=== PATIENT | female | born 1925 | race Caucasian/White ===

== ENCOUNTER 2017-03-05 20:13 | Inpatient (IN) ==
[2017-03-05] MEDS ORDERED: Naloxone 0.4 MG/ML INJ IVP PRN (23:00)
--- NOTE | 2017-03-05 23:00 | Internal Med History&Physical ---
Date of Encounter: 03/05/17 Time of Encounter: 22:59 Assessment and Plan (1) Atrial fibrillation with rapid ventricular response Current visit: Yes Status: Acute Possibly due to sepsis. Treated with IV fluid bolus, IV diltiazem bolus and diltiazem infusion. Titrate diltiazem infusion. Will check TSH, echocardiogram. Consider cardiology consult (2) Sepsis Current visit: Yes Status: Acute Likely due to contained intra-abdominal perforation (suspected) versus UTI. Pt is started on zosyn. Lactate was elevated in the ER, but is improving. Qualifiers: Sepsis type: sepsis due to unspecified organism Qualified Code(s): A41.9 - Sepsis, unspecified organism (3) Perforation bowel Current visit: Yes Status: Suspected Suspected contained perforation based on the imaging. Pt is on zosyn. ER provider at [facility] discussed with Dr Acevedo. Surgical consultation (4) UTI (urinary tract infection) Current visit: Yes Status: Acute Pt is on zosyn. Urine culture pending Qualifiers: Urinary tract infection type: site unspecified Hematuria presence: without hematuria Qualified Code(s): N39.0 - Urinary tract infection, site not specified (5) Leucocytosis Current visit: Yes Status: Acute L Likely due to sepsis Qualifiers: Leukocytosis type: unspecified Qualified Code(s): D72.829 - Elevated white blood cell count, unspecified (6) Lactic acid acidosis Current visit: Yes Status: Acute Likely due to sepsis. Pt is being treated for sepsis and lactic acidosis is improving (7) Hyponatremia Current visit: Yes Status: Acute Likely due to volume depletion. Pt on IV normal saline infusion. Monitor sodium levels (8) Chronic back pain Current visit: Yes Status: Chronic continue her home meds Qualifiers: Back pain location: low back pain Back pain laterality: unspecified Sciatica presence: unspecified whether sciatica present Qualified Code(s): M54.5 - Low back pain; G89.29 - Other chronic pain (9) DVT prophylaxis Current visit: Yes Status: Acute subQ heparin Internal Medicine - H&P: HPI Chief complaint: Shortness of breath Admitted From: Emergency Dept Plans for Post Hospital Care: Home History of present illness: Ms. Beckwith is a 89 year old female Transferred from ER at [facility], for altered mental status and sepsis. She has h/o chronic back pain and gets shots in the back and she is overdue, which is causing pain in the back. Pt reports that she has h/o shortness of breath for about a month, but today the person who came to [facility] [place] noticed her to be short of breath and insisted on getting her to the hospital. Per the EMS note - upon arrival patient was found lying in the bed complaining of back pain in the right flank area and reported trouble urinating. She was reportedly confused at home. She was evaluated in the ER and was noted to have WBC of 20.6 and suspected contained perforation in the abdomen / pelvis. She was given zosyn and ER provider discussed with Dr Acevedo, who did not recommend any urgent surgery. She is transferred to the hospitalist service, for further management. At my evaluation, she denied chest pain, palpitations, significant shortness of breath, cough, expectation, fever, chills. She reports difficulty urination and suprapubic pain. She reports nausea. No change in bowel habits. Reports that her chronic back pain is getting worse. Past Med Surg Social Fam HX - Past Medical History Medical history: hypertension Psychiatric history: no psych history - Social History Smoking Status: Never smoker Alcohol use: none Drug use: none - Additional Family History Additional family history: Family Hx reviewed and is non-contributory to current admission Internal Medicine - H&P: Meds Aspirin [Ecotrin] 325 mg PO DAILY 03/06/17 [History] Cholecalciferol (Vitamin D3) [Vitamin D] 1,000 unit PO DAILY 03/06/17 [History] Ferrous Sulfate [Iron] 325 mg PO DAILY 03/06/17 [History] Lansoprazole [Prevacid] 30 mg PO DAILY 03/06/17 [History] Metoprolol Succinate 150 mg PO DAILY 03/06/17 [History] Multivitamin [One Daily Essential] 1 tab PO DAILY 03/06/17 [History] Naproxen Sodium [Aleve] 440 mg PO BID PRN 03/06/17 [History] Olmesartan/Hydrochlorothiazide [Benicar Hct 40-25 mg Tablet] 1 tab PO DAILY 11/21 [History] Wolcott-3/Dha/Epa/Fish Oil [Fish Oil 1,000 mg Softgel] 1,000 mg PO DAILY 03/06/17 [History] PredniSONE [Liv] 10 mg PO BID 03/06/17 [History] Allergies No Known Allergies Allergy (Verified 03/05/17 17:16) All Systems PM: A 10-system review of systems was performed and is negative for pertinent findings except as documented above in the HPI. - Constitutional Vitals: Temp Pulse Resp BP Pulse Ox 98.1 F 164 18 113/77 97 03/05/17 21:38 03/05/17 21:38 03/05/17 21:38 03/05/17 21:38 03/05/17 21:38 Exam: General: Not in acute distress at the time of my evaluation HEENT: Oral mucosa is moist. No conjunctival palor or scleral icterus Neck: No obvious neck swellings Lungs: Clear to auscultation Cardiac: Irregular rhythm Abdomen: Soft; Suprapubic tenderness present. Bowel sounds present Genitourinary: No blas catheter Neurological: Alert and oriented. No gross localizing deficits Psych: Not aggressive or agitated Extremities: no significant leg edema Skin: No generalized rash Internal Med - H&P Results - Labs CBC & Chem 7: 03/06/17 03:40 03/06/17 03:40 - EKG Data -: EKG Interpreted by Myself - EKG Data Prior EKG available for review: yes EKG comments: EKG done here showed atrial fibrillation with rapid response. Heart rate 161. Compared with EKG from earlier today, done at the ER - which showed sinus tachycardia with heart rate of 130. 03/06/17 08:41 - Impressions Chest x-ray reported bronchiectasis and scarring in both lungs with chronic interstitial changes. No acute focal consolidation to suggest pneumonia. 4 mm right upper lobe pulmonary nodule since 2007. CT head reported no acute intracranial abnormality. CT scan of abdomen and pelvis reported large collection of stool that extends from sigmoid colon extending into the space between the bladder and the uterus. Findings likely represent a contained perforation. No significant free air or significant fluid collection is noted. Mild inflammatory stranding noted within the pelvis.
[2017-03-06] MEDS ORDERED: Magnesium Sulfate 2 GM in D5% in Water 100 ML IVPB ONE (00:40)
[2017-03-06] MEDS: *HR* Heparin 5,000 UNIT/ML VIAL SQ SCH ×3 (01:23→18:21)
[2017-03-06] MEDS: 0.9 % Sodium Chloride 1,000 ML IVC SCH ×2 (01:23→14:39)
[2017-03-06] MEDS: Piperacillin/Tazobactam 3.375 GM in D5% in Water (Mini-Bag+) 100 ML IVPB SCH ×3 (01:24→18:20)
[2017-03-06 04:26] LABS: Hematocrit 31.4 % (35.3-44.9); Hemoglobin 10.3 g/dL (11.5-15.4); Mean Corpuscular HGB Conc 32.8 g/dL (31.6-35.5); Mean Corpuscular Hemoglobin 24.7 pg (28.0-33.3); Mean Corpuscular Volume 75.3 fL (83.0-100.0); Mean Platelet Volume 9.1 fL (9.4-12.4); Platelet Count 329 K/mcL (140-400); Red Blood Count 4.17 M/mcL (3.82-4.97); Red Cell Distribution Width 17.5 % (11.5-14.5)
[2017-03-06 04:37] LABS: BUN/Creatinine Ratio 40 (6-26); Blood Urea Nitrogen 36 mg/dL (7-20); Calcium 7.8 mg/dL (8.6-10.8); Carbon Dioxide 18 mEq/L (19-29); Chloride 101 mEq/L (98-109); Glucose 101 mg/dL (70-99); Osmolality,Calculated 276 (280-300); Potassium 4.1 mEq/L (3.5-4.5); Sodium 129 mEq/L (136-145); eGFR For African Americans > 60 (> 60); eGFR For Non-African Americans 58 (> 60)
[2017-03-06 04:59] LABS: Thyroid Stimulating Hormone 0.983 mcIU/mL (0.350-4.840)
[2017-03-06 05:08] LABS: Eosinophils # 0.4 K/mcL (0.0-0.6); Lymphocytes # 1.7 K/mcL (0.6-4.6); Monocytes # 0.4 K/mcL (0.0-1.3); Neutrophils # 18.3 K/mcL (1.6-8.9); Platelet Estimate Normal (Normal); Toxic Granulation Present (Not Present)
[2017-03-06] MEDS ORDERED: 0.9 % Sodium Chloride 500 ML IVC ONE ×2 (07:00→07:13)
[2017-03-06] MEDS ORDERED: *HR* Digoxin 0.5 MG/2 ML AMPUL IVP ONE (08:39)
--- NOTE | 2017-03-06 09:04 | Internal Med Progress Note ---
<Jabier Walker - Last Filed: 03/06/17 13:30> Date of Encounter: 03/06/17 Time of Encounter: 09:57 - Assessment and plan (1) Atrial fibrillation with rapid ventricular response Current Visit: Yes Status: Acute Assessment and plan: 89-year-old female history of hypertension, arthritis presents with chief complaint of shortness of breath, weakness of one month. Patient is transferred from [place]. Patient was found by neighbor to be confused. When EMS arrived patient complained of back pain and right flank pain and was confused. She also complained of dysuria onset 2 days. Patient was taken to [facility] ER was found to have a white blood cell count of 20.6. CT abdomen pelvis showed possible contained perforation and sigmoid colon between the space of bladder and uterus without free air, fluid collection. Head CT is negative, chest x-ray showed bronchiectasis and scarring in both lungs with chronic interstitial changes. Now alert and oriented x3 At [place] EKG was sinus rhythm found to be in afib rvr after arrival Given cardizem 5mg x2 Iv started on cardizem gtt 5mg/hr>>Became hypotensive>> given 1L NS bolus and started on NS 100cc/hr Continued to be in afib with rate 150-160 this morning with BP in systolic upper 90s to 100 given digoxin .125mg and HR decreased to 110, BP increased to 120/80. Repeat EKG pending 2nd to dehydration, sepsis denies hx of cardiac disease No hx of atrial fibrillation. echocardiogram pending. tsh WNL (2) Sepsis Current Visit: Yes Status: Acute Assessment and plan: Tachycardic, leukocytosis, CT abdomen/pelvis shows possible contained perforation Urinalysis shows urine bacteria, urine culture pending chapin 2nd to suspected intra-abdominal bowel perforation/possible UTI -continue zosyn Qualifiers: Sepsis type: sepsis due to unspecified organism Qualified Code(s): A41.9 - Sepsis, unspecified organism (3) Perforation bowel Current Visit: Yes Status: Suspected Assessment and plan: Ct/abdomen pelvis shows containe bowel perforation in the sigmoid colon which is between bladder and uterus, without free air of fluid collection -tenderness to palpation in the RLQ and pain with percussion of LLQ, soft belly , no peritoneal signs, absent rigidity -denies pervious abdominal surgeries, denies colonoscopy in past -General surgery on board awaiting recommendations -continue zosyn (4) Essential (primary) hypertension Current Visit: Yes Status: Chronic Assessment and plan: currently patien's BP is <120/80. Will hold home medications. continue to monitor BP. (5) UTI (urinary tract infection) Current Visit: Yes Status: Suspected Assessment and plan: Urinalysis shows urine bacteria. Urine culture pending continue zosyn Qualifiers: Urinary tract infection type: site unspecified Hematuria presence: without hematuria Qualified Code(s): N39.0 - Urinary tract infection, site not specified (6) Hyponatremia Current Visit: Yes Status: Acute Assessment and plan: Sodium of 129. Caculated osmolality 276. 2nd to volume depletion. will continue to monitor with BMP (7) Chronic back pain Current Visit: Yes Status: Chronic Assessment and plan: hx of degenerative disk disease, osteoarthritis states she gets epidural shots outpatient on prednisone for osteoarthritis, and neproxen. will start prednisone 10mg daily. Qualifiers: Back pain location: low back pain Back pain laterality: unspecified Sciatica presence: unspecified whether sciatica present Qualified Code(s): M54.5 - Low back pain; G89.29 - Other chronic pain (8) DVT prophylaxis Current Visit: Yes Status: Acute Assessment and plan: heparin SQ - Subjective Interval history: After being transferred from [facility] ER for sepsis, this morning patient was found to be in A. fib RVR. Patient denies having history of A. fib. Patient's rate was in the 150-160s. Patient was given 2 doses of Cardizem 5 mg IV and started on a Cardizem drip however her blood pressure decreased to 87/53. Patient was given 1 L bolus of fluids and started on 0.9% NS fluids 100 mL an hour. This morning patient continued to be in A. fib RVR. She was given digoxin 0.125 and her heart rate decreased to 110. She denies chest pain, abdominal pain, nausea, vomiting, diarrhea, abdominal pain, leg pain. Patient states her shortness of breath has improved since admission. - Constitutional Vitals: Temp Pulse Resp BP Pulse Ox 98 F 141 18 106/71 95 03/06/17 06:52 03/06/17 06:52 03/06/17 06:52 03/06/17 06:52 03/06/17 07:56 General appearance: Present: A&O X 3, pleasant - Head Head exam: Present: atraumatic, normocephalic - Eye Eye exam: Present: PERRL, conjuntiva pink, sclera anicteric - Neck Neck exam general surgery: Present: supple, trachea midline. Absent: lymphadenopathy - Cardiovascular Cardiovascular exam: Present: irregular rhythm (A. fib), +S1, +S2, tachycardia. Absent: diastolic murmur, gallop, JVD, rubs, systolic murmur - GI/Abdominal GI/Abdominal exam: Present: soft. Absent: distended Additional comments: Tender to palpation in the right lower quadrant and pain with percussion of the left lower quadrant. - Extremities Exam Extremities exam: Present: warm, radial pulses palpable and symetrical. Absent : calf tenderness, cyanotic, pedal edema - Neurological Exam Neurological exam: Present: CN II-XII intact, oriented X3, no focal deficits. Absent: pronater drift, facial droop, speech deficit - Skin Skin exam: Present: dry, intact Internal Medicine: Result - Labs CBC & Chem 7: 03/06/17 03:40 03/06/17 03:40 Labs: Short CBC 03/06/17 Range/Units 03:40 WBC 20.8 H (4.3-11.1) K/mcL Hgb 10.3 L (11.5-15.4) g/dL Hct 31.4 L (35.3-44.9) % Plt Count 329 (140-400) K/mcL Neutrophils # 18.3 H (1.6-8.9) K/mcL BMP 03/06/17 03:40 Sodium 129 L Potassium 4.1 Chloride 101 Carbon Dioxide 18 L BUN 36 H Creatinine 0.91 Glucose 101 H Calcium 7.8 L Cardiac Enzymes 03/06/17 03/06/17 Range/Units 00:01 03:40 Troponin I 0.01 0.02 (0-0.03) ng/mL Consult Discharge Plan - Plan Referrals: Aaron Levy, ELASTIC YARN TWISTER HELPER [Primary Care Provider] - <Hung Penaloza - Last Filed: 03/06/17 17:29> Date of Encounter: 03/06/17 - Constitutional Vitals: Temp Pulse Resp BP Pulse Ox 97.8 F 92 18 110/64 95 03/06/17 15:37 03/06/17 15:37 03/06/17 15:37 03/06/17 15:37 03/06/17 15:37 Internal Medicine: Result - Labs CBC & Chem 7: 03/06/17 03:40 03/06/17 03:40 Labs: Short CBC 03/06/17 Range/Units 03:40 WBC 20.8 H (4.3-11.1) K/mcL Hgb 10.3 L (11.5-15.4) g/dL Hct 31.4 L (35.3-44.9) % Plt Count 329 (140-400) K/mcL Neutrophils # 18.3 H (1.6-8.9) K/mcL BMP 03/06/17 03:40 Sodium 129 L Potassium 4.1 Chloride 101 Carbon Dioxide 18 L BUN 36 H Creatinine 0.91 Glucose 101 H Calcium 7.8 L Cardiac Enzymes 03/06/17 03/06/17 Range/Units 00:01 03:40 Troponin I 0.01 0.02 (0-0.03) ng/mL - Attending Attestation I examined this patient and my medical decision-making was reviewed with the SYSTEMS PLANNER/PA/Advanced Practice Nurse/Resident Physician. I agree with the documented findings, disposition and treatment plan as described except to the extent set forth below. await surgical input
[2017-03-06] MEDS: predniSONE 10 MG TABLET PO SCH (14:38)
[2017-03-07] MEDS: Piperacillin/Tazobactam 3.375 GM in D5% in Water (Mini-Bag+) 100 ML IVPB SCH ×3 (01:25→16:59)
[2017-03-07] MEDS: 0.9 % Sodium Chloride 1,000 ML IVC SCH (01:25)
[2017-03-07] MEDS: *HR* Heparin 5,000 UNIT/ML VIAL SQ SCH ×3 (01:26→16:59)
[2017-03-07 04:57] LABS: Hematocrit 27.5 % (35.3-44.9); Hemoglobin 9.1 g/dL (11.5-15.4); Mean Corpuscular HGB Conc 33.1 g/dL (31.6-35.5); Mean Corpuscular Hemoglobin 24.3 pg (28.0-33.3); Mean Corpuscular Volume 73.5 fL (83.0-100.0); Mean Platelet Volume 9.5 fL (9.4-12.4); Platelet Count 309 K/mcL (140-400); Red Blood Count 3.74 M/mcL (3.82-4.97); Red Cell Distribution Width 17.4 % (11.5-14.5)
[2017-03-07 05:09] LABS: BUN/Creatinine Ratio 33 (6-26); Blood Urea Nitrogen 26 mg/dL (7-20); Calcium 7.6 mg/dL (8.6-10.8); Carbon Dioxide 19 mEq/L (19-29); Chloride 106 mEq/L (98-109); Glucose 113 mg/dL (70-99); Osmolality,Calculated 278 (280-300); Potassium 3.7 mEq/L (3.5-4.5); Sodium 131 mEq/L (136-145); eGFR For African Americans > 60 (> 60); eGFR For Non-African Americans > 60 (> 60)
[2017-03-07 05:40] LABS: Acanthocytes 2+ (Not Present); Lymphocytes # 3.5 K/mcL (0.6-4.6); Monocytes # 0.7 K/mcL (0.0-1.3); Neutrophils # 13.5 K/mcL (1.6-8.9); Ovalocytes 1+ (Not Present); Platelet Estimate Normal (Normal); Toxic Granulation Present (Not Present)
[2017-03-07] MEDS: predniSONE 10 MG TABLET PO SCH (07:44)
--- NOTE | 2017-03-07 07:55 | Internal Med Progress Note ---
<Jabier Walker - Last Filed: 03/07/17 08:10> Date of Encounter: 03/07/17 Time of Encounter: 07:53 - Assessment and plan (1) Atrial fibrillation with rapid ventricular response Current Visit: Yes Status: Acute Assessment and plan: 2nd to dehydration, sepsis denies hx of cardiac disease No hx of atrial fibrillation. echocardiogram pending. tsh WNL afib, rate controlled overnight however in monring HR between 90s-130s Converted after digoxin to sinus tachycardia yesterday continue cardizem drip goal HR <100 Increase metoprolol 50mg BID continue telemetry (2) Sepsis Current Visit: Yes Status: Acute Assessment and plan: Tachycardic, leukocytosis, CT abdomen/pelvis shows possible contained perforation Urinalysis shows urine bacteria Urine culture negative Blood cultures pending chapin 2nd to suspected intra-abdominal bowel perforation/possible UTI -continue zosyn day 2 Qualifiers: Sepsis type: sepsis due to unspecified organism Qualified Code(s): A41.9 - Sepsis, unspecified organism (3) Perforation bowel Current Visit: Yes Status: Suspected Assessment and plan: Ct/abdomen pelvis shows containe bowel perforation in the sigmoid colon which is between bladder and uterus, without free air of fluid collection -tenderness to palpation in the RLQ and pain with percussion of LLQ, soft belly , no peritoneal signs, absent rigidity -denies pervious abdominal surgeries, denies colonoscopy in past -General surgery on board awaiting recommendations -continue zosyn day 2 (4) Essential (primary) hypertension Current Visit: Yes Status: Chronic Assessment and plan: stable on metoprolol. continue to monitor BP. (5) UTI (urinary tract infection) Current Visit: Yes Status: Suspected Assessment and plan: Urinalysis shows urine bacteria. Urine culture negative continue zosyn Qualifiers: Urinary tract infection type: site unspecified Hematuria presence: without hematuria Qualified Code(s): N39.0 - Urinary tract infection, site not specified (6) Hyponatremia Current Visit: Yes Status: Acute Assessment and plan: stable Sodium of 129. Caculated osmolality 276. 2nd to volume depletion. will continue to monitor with BMP (7) Chronic back pain Current Visit: Yes Status: Chronic Assessment and plan: hx of degenerative disk disease, osteoarthritis states she gets epidural shots outpatient on prednisone for osteoarthritis, and neproxen. will start prednisone 10mg daily. Qualifiers: Back pain location: low back pain Back pain laterality: unspecified Sciatica presence: unspecified whether sciatica present Qualified Code(s): M54.5 - Low back pain; G89.29 - Other chronic pain (8) DVT prophylaxis Current Visit: Yes Status: Acute Assessment and plan: heparin SQ - Subjective Interval history: No acute events overnight. Continues to have abdominal pain. - Constitutional Vitals: Temp Pulse Resp BP Pulse Ox 97.6 F 89 18 130/74 96 03/07/17 06:41 03/07/17 06:41 03/07/17 06:41 03/07/17 06:41 03/07/17 06:41 General appearance: Present: A&O X 3, pleasant - Respiratory Respiratory exam: Present: CTAB. Absent: accessory muscle use, rales, rhonchi, wheezes - Cardiovascular Cardiovascular exam: Present: irregular rhythm, +S1, +S2 - GI/Abdominal GI/Abdominal exam: Present: normal bowel sounds, soft, tenderness (left and right lower quadrant. ). Absent: distended - Extremities Exam Extremities exam: Present: warm, radial pulses palpable and symetrical. Absent : calf tenderness, cyanotic, pedal edema - Skin Skin exam: Present: dry, intact Internal Medicine: Result - Labs CBC & Chem 7: 03/07/17 04:12 03/07/17 04:12 Labs: Short CBC 03/07/17 Range/Units 04:12 WBC 17.7 H (4.3-11.1) K/mcL Hgb 9.1 L (11.5-15.4) g/dL Hct 27.5 L (35.3-44.9) % Plt Count 309 (140-400) K/mcL Neutrophils # 13.5 H (1.6-8.9) K/mcL BMP 03/07/17 04:12 Sodium 131 L Potassium 3.7 Chloride 106 Carbon Dioxide 19 BUN 26 H D Creatinine 0.79 Glucose 113 H Calcium 7.6 L Consult Discharge Plan - Plan Referrals: Aaron Levy, SHARPLES MACHINE OPERATOR [Primary Care Provider] - <Hung Penaloza P - Last Filed: 03/07/17 13:38> Date of Encounter: 03/07/17 - Constitutional Vitals: Temp Pulse Resp BP Pulse Ox 97.6 F 89 18 130/74 96 03/07/17 06:41 03/07/17 06:41 03/07/17 06:41 03/07/17 06:41 03/07/17 06:41 Internal Medicine: Result - Labs CBC & Chem 7: 03/07/17 04:12 03/07/17 04:12 Labs: Short CBC 03/07/17 Range/Units 04:12 WBC 17.7 H (4.3-11.1) K/mcL Hgb 9.1 L (11.5-15.4) g/dL Hct 27.5 L (35.3-44.9) % Plt Count 309 (140-400) K/mcL Neutrophils # 13.5 H (1.6-8.9) K/mcL BMP 03/07/17 04:12 Sodium 131 L Potassium 3.7 Chloride 106 Carbon Dioxide 19 BUN 26 H D Creatinine 0.79 Glucose 113 H Calcium 7.6 L - Impressions Impressions Barium Enema 03/07/17 10:16 IMPRESSION: Contained sigmoid colon perforation measuring about 8.6 x 7.6 cm. No evidence of free spill of contrast into the peritoneal cavity. This is suspected to be diverticular in origin. Findings were discussed with Pushpa Hollingsworth at 12:49 pm on 03/07/2017. D/ / Anton Santiago MD / Anton Santiago MD Interpreting Provider: Anton Santiago MD - Attending Attestation I examined this patient and my medical decision-making was reviewed with the TALENT DEVELOPMENT CONSULTANT/PA/Advanced Practice Nurse/Resident Physician. I agree with the documented findings, disposition and treatment plan as described except to the extent set forth below. Surgical input appreciated. We will follow the recommendations from surgery.
--- NOTE | 2017-03-07 10:19 | Electrocardiograph Report ---
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
--- NOTE | 2017-03-07 11:56 | General Surgery Consult Note ---
<Pushpa Hollingsworth - Last Filed: 03/07/17 19:22> Date of Encounter: 03/07/17 Time of Encounter: 01:00 Assessment and Plan (1) Perforation bowel Current Visit: Yes Status: Suspected Patient presents with abdominal tenderness to palpation, confusion on initial admission and CT scan of the abdomen and pelvis that demonstrates a of sigmoid colon perforation that is contained. Barium enema did not demonstrate leakage of contrast into the peritoneal cavity. However given patient's clinical findings and correlation with imaging results complicated diverticulitis with peritonitis ; resection of disease colonic segment is advisable. Patient's medical history significant for chronic constipation for which she takes Metamucil daily. On exam patient is resting comfortably she is alert and oriented and answering appropriately she denies abdominal pain however she exhibits withdrawal and illicit pain response on palpation. Diffuse lower abdominal tenderness. Vitals stable. Afebrile. Barium Enema 03/07/17 10:16 IMPRESSION: Contained sigmoid colon perforation measuring about 8.6 x 7.6 cm. No evidence of free spill of contrast into the peritoneal cavity. This is suspected to be diverticular in origin. Findings were discussed with Pushpa Hollingsworth at 12:49 pm on 03/07/2017. Plan: Contained sigmoid colon perforation. Nothing by mouth after midnight Medical management per hospital team Supportive care and pain control IV fluids IV antibiotics Incentive spirometer every 1 hour while awake PPI therapy Surgical intervention: David procedure tomorrow. Risks, benefits, alternatives, expected outcomes reviewed with the patient is agreement to proceed to the operating room with for Oh's procedure in the next 24 hours. Verbal and written consent was obtained, signed, dated and placed in the chart. The assessment and plan as outlined above was discussed with the patient and/or family members who expressed understanding and agreement. All questions were answered. History of Present Illness Consult date: 03/07/17 Reason for consult: other (Suspected bowel perforation anemia) Requesting physician: Jabier Walker History of present illness: Mrs. Beckwith is an 89-year-old female with past medical history significant for chronic constipation for which she takes daily Metamucil without full alleviation of constipation symptoms who presented to [facility] emergency department due to altered mental status. Symptoms began 3 days ago on when the man who comes to mow her lawn each week noticed that she was unable to write the check due to hand weakness, shaking intensely, and really just not having the energy to "write the check "so he decided to call 911. Patient states that she had had a terrible cold months ago that never fully resolved leaving her with residual coughing and weakness and feeling like she just had no energy she believed at the time that this is all it was. Initially she was a little upset to go to the emergency room for a cold. Patient denies: Hematochezia, melena, or pus in her stool, chest pain, abdominal pain, fever, chills, nausea, vomiting, hematuria, pyuria, dysuria. On evaluation at [facility] the patient was found to have leukocytosis at 20,000 , lactic acid was also elevated patient was confused and having difficulty word finding, CT scan demonstrated concerning findings for bowel perforation that include a large amount of stool extending from the sigmoid colon between the uterus and the bladder. Patient was transferred to [facility] for surgical evaluation and management. Medical history: Multiple comorbidities include hypertension, arthritis, A. fib with RVR, arthritis Social history: Patient enjoys baking pies specifically pumpkin extra spicy Patient lives alone she was but her has since . They do not have any children. Recently her pet cat due to cancer. Her niece Zeny will be here tomorrow traveling from [place]. Patient had 2 brothers who also . Patient used to smoke a pack a day since age 16 however she quit in 11. Surgical history: Patient has never had a colonoscopy in her life. Stating that she made it this far without one. Right breast lumpectomy patient unsure of the year she was treated orally with for 5 years with breast cancer. Last bowel movement: 3 days ago. Last meal: Clear liquids at dinner tonight. Past Med Surg Social Fam HX - Past Medical History Medical history: hypertension Psychiatric history: no psych history - Social History Smoking Status: Never smoker Alcohol use: none Drug use: none Medications and Allergies Aspirin [Ecotrin] 325 mg PO DAILY 03/06/17 [History] Cholecalciferol (Vitamin D3) [Vitamin D] 1,000 unit PO DAILY 03/06/17 [History] Ferrous Sulfate [Iron] 325 mg PO DAILY 03/06/17 [History] Lansoprazole [Prevacid] 30 mg PO DAILY 03/06/17 [History] Metoprolol Succinate 150 mg PO DAILY 03/06/17 [History] Multivitamin [One Daily Essential] 1 tab PO DAILY 03/06/17 [History] Naproxen Sodium [Aleve] 440 mg PO BID PRN 03/06/17 [History] Olmesartan/Hydrochlorothiazide [Benicar Hct 40-25 mg Tablet] 1 tab PO DAILY 11/21 [History] [place]-3/Dha/Epa/Fish Oil [Fish Oil 1,000 mg Softgel] 1,000 mg PO DAILY 03/06/17 [History] PredniSONE [Liv] 10 mg PO BID 03/06/17 [History] Allergies No Known Allergies Allergy (Verified 03/05/17 17:16) Review of Systems All systems PM: A 10-system review of systems was performed and is negative for pertinent findings except as documented above in the HPI. - Constitutional fatigue, lethargy, malaise, weakness, other (Shaking), no anorexia, no chills, no fever(s) - EENT Eyes: bilateral: blurred vision, tunnel vision/blind spots Nose, mouth and throat: dizziness, no epistaxis, no lip swelling, no mouth pain , no sore throat, no throat swelling, no tongue swelling, no vertigo - Cardiovascular irregular heart rhythm (A. fib with RVR), lightheadedness, syncope (History of syncopal episodes in the past multiple episodes she states she was extensively worked up and to her knowledge no known cause was found. States that her heart was evaluated and it was checked out okay.), no chest pain, no diaphoresis, no dyspnea - Respiratory no cough, no hemoptysis, no wheezing, no pain on inspiration - Gastrointestinal constipation (Chronic constipation for which she takes daily Metamucil but states that it rarely helps.), no abdominal pain, no belching, no bloating, no cramping, no dysphagia, no hematemesis, no hematochezia, no melena, no nausea, no vomiting - Genitourinary Genitourinary: no dysuria, no flank pain, no hematuria - Musculoskeletal arthralgias (Patient sees a glass fitter for her arthritis although she is not sure what type of arthritis she has.), back pain, muscle weakness - Integumentary no erythema, no new lesions, no pruritus, no rash, no sores, no jaundice - Neurological abnormal speech, confusion, dizziness, syncope, weakness - Psychiatric no irritability, no mood swings - Hematologic/Lymphatic easy bleeding, easy bruising, no lymphadenopathy - Allergic/Immunologic no tongue swelling, no throat swelling, no wheezing, no lip swelling General Surgery Exam Initial Vital Signs Temp Pulse Resp BP Pulse Ox 98.1 F 164 18 113/77 97 03/05/17 21:38 03/05/17 21:38 03/05/17 21:38 03/05/17 21:38 03/05/17 21:38 - General physical appearance well developed, well nourished, no distress, moderate pain - Eyes PERRL, normal ocular movement - ENT normal nares, normal mucosa, atraumatic, normocephalic, CN 2-12 grossly intact - Neck no masses, trachea midline - Respiratory normal expansion, normal respiratory effort, clear to auscultation - Cardiovascular Cardiovascular exam: Present: irregular rhythm. Absent: JVD - Abdomen Abdomen general surgery: Present: bowel sounds present, soft, tender Abdominal Tenderness: Present: diffusely (Patient initially denied having any abdominal pain. However on palpation she is diffusely tender.) - Integumentary Integumentary general surgery: Present: warm and dry, no abnormal pigmentation. Absent: diaphoresis, rash - Neurologic Present: CN 2-12 grossly intact, normal coordination, normal sensation - Musculoskeletal Present: normal posture - Psychiatric Psychiatric general surgery: Present: A&Ox3, appropriate, speech is normal, memory intact Exam Initial Vital Signs Temp Pulse Resp BP Pulse Ox 98.1 F 164 18 113/77 97 03/05/17 21:38 03/05/17 21:38 03/05/17 21:38 03/05/17 21:38 03/05/17 21:38 Results - Labs 03/07/17 04:12 03/07/17 04:12 Abnormal lab results WBC 17.7 K/mcL (4.3-11.1) H 03/07/17 04:12 RBC 3.74 M/mcL (3.82-4.97) L 03/07/17 04:12 Hgb 9.1 g/dL (11.5-15.4) L 03/07/17 04:12 Hct 27.5 % (35.3-44.9) L 03/07/17 04:12 MCV 73.5 fL (83.0-100.0) L 03/07/17 04:12 MCH 24.3 pg (28.0-33.3) L 03/07/17 04:12 RDW 17.4 % (11.5-14.5) H 03/07/17 04:12 Band Neutrophils % 18.0 % (0-4) H 03/07/17 04:12 Neutrophils # 13.5 K/mcL (1.6-8.9) H 03/07/17 04:12 Toxic Granulation Present (Not Present) A 03/07/17 04:12 Ovalocytes 1+ (Not Present) A 03/07/17 04:12 Acanthocytes (Spur) 2+ (Not Present) A 03/07/17 04:12 Sodium 131 mEq/L (136-145) L 03/07/17 04:12 BUN 26 mg/dL (7-20) H D 03/07/17 04:12 BUN/Creatinine Ratio 33 (6-26) H 03/07/17 04:12 Glucose 113 mg/dL (70-99) H 03/07/17 04:12 Calculated Osmolality 278 (280-300) L 03/07/17 04:12 Calcium 7.6 mg/dL (8.6-10.8) L 03/07/17 04:12 Magnesium 1.3 mg/dL (1.6-2.6) L 03/07/17 04:12 Diabetes panel 03/07/17 Range/Units 04:12 Sodium 131 L (136-145) mEq/L Potassium 3.7 (3.5-4.5) mEq/L Chloride 106 (98-109) mEq/L Carbon Dioxide 19 (19-29) mEq/L BUN 26 H D (7-20) mg/dL Creatinine 0.79 (0.57-1.11) mg/dL Glucose 113 H (70-99) mg/dL Calcium 7.6 L (8.6-10.8) mg/dL Calcium panel 03/07/17 Range/Units 04:12 Calcium 7.6 L (8.6-10.8) mg/dL Pituitary panel 03/07/17 Range/Units 04:12 Sodium 131 L (136-145) mEq/L Potassium 3.7 (3.5-4.5) mEq/L Chloride 106 (98-109) mEq/L Carbon Dioxide 19 (19-29) mEq/L BUN 26 H D (7-20) mg/dL Creatinine 0.79 (0.57-1.11) mg/dL Glucose 113 H (70-99) mg/dL Calcium 7.6 L (8.6-10.8) mg/dL Adrenal panel 03/07/17 Range/Units 04:12 Sodium 131 L (136-145) mEq/L Potassium 3.7 (3.5-4.5) mEq/L Chloride 106 (98-109) mEq/L Carbon Dioxide 19 (19-29) mEq/L BUN 26 H D (7-20) mg/dL Creatinine 0.79 (0.57-1.11) mg/dL Glucose 113 H (70-99) mg/dL Calcium 7.6 L (8.6-10.8) mg/dL All other labs normal. Consult Discharge Plan - Plan Referrals: Aaron Levy, INS[employer] UPHOLSTERER [Primary Care Provider] - <Alonzo Thompson - Last Filed: 03/08/17 06:34> Date of Encounter: 03/07/17 Review of Systems All systems PM: A 10-system review of systems was performed and is negative for pertinent findings except as documented above in the HPI. General Surgery Exam Initial Vital Signs Temp Pulse Resp BP Pulse Ox 98.1 F 164 18 113/77 97 03/05/17 21:38 03/05/17 21:38 03/05/17 21:38 03/05/17 21:38 03/05/17 21:38 Exam Initial Vital Signs Temp Pulse Resp BP Pulse Ox 98.1 F 164 18 113/77 97 03/05/17 21:38 03/05/17 21:38 03/05/17 21:38 03/05/17 21:38 03/05/17 21:38 Results - Labs 03/08/17 03:10 03/08/17 03:10 Abnormal lab results WBC 18.8 K/mcL (4.3-11.1) H 03/08/17 03:10 RBC 3.79 M/mcL (3.82-4.97) L 03/08/17 03:10 Hgb 9.4 g/dL (11.5-15.4) L 03/08/17 03:10 Hct 28.0 % (35.3-44.9) L 03/08/17 03:10 MCV 73.9 fL (83.0-100.0) L 03/08/17 03:10 MCH 24.8 pg (28.0-33.3) L 03/08/17 03:10 RDW 17.7 % (11.5-14.5) H 03/08/17 03:10 MPV 9.1 fL (9.4-12.4) L 03/08/17 03:10 Band Neutrophils % 12.0 % (0-4) H 03/08/17 03:10 Neutrophils # 11.7 K/mcL (1.6-8.9) H 03/08/17 03:10 Lymphocytes # 4.9 K/mcL (0.6-4.6) H 03/08/17 03:10 Eosinophils # 1.5 K/mcL (0.0-0.6) H 03/08/17 03:10 Reactive Lymphocytes Present (Not Present) A 03/08/17 03:10 Toxic Granulation Present (Not Present) A 03/08/17 03:10 Polychromasia 1+ (Not Present) A 03/08/17 03:10 Poikilocytosis 2+ (Not Present) A 03/08/17 03:10 Ovalocytes 1+ (Not Present) A 03/08/17 03:10 Corrie Cells 1+ (Not Present) A 03/08/17 03:10 Acanthocytes (Spur) 2+ (Not Present) A 03/07/17 04:12 Sodium 130 mEq/L (136-145) L 03/08/17 03:10 Carbon Dioxide 18 mEq/L (19-29) L 03/08/17 03:10 BUN 21 mg/dL (7-20) H 03/08/17 03:10 Glucose 100 mg/dL (70-99) H 03/08/17 03:10 Calculated Osmolality 273 (280-300) L 03/08/17 03:10 Calcium 7.6 mg/dL (8.6-10.8) L 03/08/17 03:10 Magnesium 1.3 mg/dL (1.6-2.6) L 03/07/17 04:12 Diabetes panel 03/08/17 Range/Units 03:10 Sodium 130 L (136-145) mEq/L Potassium 3.6 (3.5-4.5) mEq/L Chloride 104 (98-109) mEq/L Carbon Dioxide 18 L (19-29) mEq/L BUN 21 H (7-20) mg/dL Creatinine 0.81 (0.57-1.11) mg/dL Glucose 100 H (70-99) mg/dL Calcium 7.6 L (8.6-10.8) mg/dL Calcium panel 03/08/17 Range/Units 03:10 Calcium 7.6 L (8.6-10.8) mg/dL Pituitary panel 03/08/17 Range/Units 03:10 Sodium 130 L (136-145) mEq/L Potassium 3.6 (3.5-4.5) mEq/L Chloride 104 (98-109) mEq/L Carbon Dioxide 18 L (19-29) mEq/L BUN 21 H (7-20) mg/dL Creatinine 0.81 (0.57-1.11) mg/dL Glucose 100 H (70-99) mg/dL Calcium 7.6 L (8.6-10.8) mg/dL Adrenal panel 03/08/17 Range/Units 03:10 Sodium 130 L (136-145) mEq/L Potassium 3.6 (3.5-4.5) mEq/L Chloride 104 (98-109) mEq/L Carbon Dioxide 18 L (19-29) mEq/L BUN 21 H (7-20) mg/dL Creatinine 0.81 (0.57-1.11) mg/dL Glucose 100 H (70-99) mg/dL Calcium 7.6 L (8.6-10.8) mg/dL All other labs normal. - Attending Attestation I examined this patient and my medical decision-making was reviewed with the CERTIFIED HEALTH EDUCATION SPECIALIST/PA/Advanced Practice Nurse/Resident Physician. I agree with the documented findings, disposition and treatment plan as described except to the extent set forth below. The patient is seen and evaluated. She has a tender lower abdomen, she has responded to antibiotic therapy. She has what appears to be a stool accumulation outside the lumen of the bowel. I recommended a Gastrografin enema. If there is an active leak, Oh's procedure will be indicated along with pelvic irrigation and debridement of abscess Alonzo Thompson MD FACS
--- NOTE | 2017-03-07 12:46 | Electrocardiograph Report ---
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
--- NOTE | 2017-03-07 13:12 | Electrocardiograph Report ---
[address] [place] [address] Test Date: 2017-03-06 Pat Name: Doreen Beckwith Department: 111 Room: 2NE16 Gender: F Pick Up Man: RAKESH : 1925 Requested By: Jabier Walker Order Number: [id number] Reading MD: Luis Felipe Melgar MD Measurements Intervals [place] Rate: 109 P: 23 PA: 217 QRS: -36 QRSD: 102 T: 136 QT: 330 QTc: 394 Interpretive Statements SINUS TACHYCARDIA WITH FIRST DEGREE AV BLOCK LEFT AXIS DEVIATION LOW QRS VOLTAGE IN PRECORDIAL LEADS POSSIBLE ANTERIOR MYOCARDIAL INFARCTION, PROBABLY OLD MODERATE T-WAVE ABNORMALITY, CONSIDER LATERAL ISCHEMIA Electronically Signed On 03-07-2017 13:10:42 EDT by Luis Felipe Melgar MD
[2017-03-07] MEDS ORDERED: Magnesium Sulfate 2 GM in D5% in Water 100 ML IVPB ONE (13:15)
[2017-03-07] MEDS: Pantoprazole 40 MG VIAL IVP SCH (14:44)
[2017-03-07] MEDS ORDERED: *HR* Metoprolol 5 MG/5 ML VIAL IVP PRN (17:23)
[2017-03-07] MEDS ORDERED: *HR* Metoprolol 5 MG/5 ML VIAL IVP ONE (17:26)
[2017-03-07] MEDS ORDERED: Metoprolol 100 MG TABLET PO SCH ×2 (17:30→21:00)
[2017-03-07] MEDS: Metoprolol 100 MG TABLET PO SCH (17:52)
[2017-03-08] MEDS: Piperacillin/Tazobactam 3.375 GM in D5% in Water (Mini-Bag+) 100 ML IVPB SCH ×3 (00:42→17:34)
[2017-03-08] MEDS: *HR* Heparin 5,000 UNIT/ML VIAL SQ SCH ×3 (00:42→17:34)
[2017-03-08 03:24] LABS: Hemoglobin 9.4 g/dL (11.5-15.4); Mean Corpuscular HGB Conc 33.6 g/dL (31.6-35.5); Mean Corpuscular Hemoglobin 24.8 pg (28.0-33.3); Mean Corpuscular Volume 73.9 fL (83.0-100.0); Mean Platelet Volume 9.1 fL (9.4-12.4); Monocytes # 0.8 K/mcL (0.0-1.3); Platelet Count 332 K/mcL (140-400); Red Blood Count 3.79 M/mcL (3.82-4.97); Red Cell Distribution Width 17.7 % (11.5-14.5)
[2017-03-08 03:39] LABS: BUN/Creatinine Ratio 26 (6-26); Blood Urea Nitrogen 21 mg/dL (7-20); Calcium 7.6 mg/dL (8.6-10.8); Carbon Dioxide 18 mEq/L (19-29); Chloride 104 mEq/L (98-109); Glucose 100 mg/dL (70-99); Osmolality,Calculated 273 (280-300); Potassium 3.6 mEq/L (3.5-4.5); Sodium 130 mEq/L (136-145); eGFR For African Americans > 60 (> 60); eGFR For Non-African Americans > 60 (> 60)
[2017-03-08 03:53] LABS: Eosinophils # 1.5 K/mcL (0.0-0.6); Lymphocytes # 4.9 K/mcL (0.6-4.6); Neutrophils # 11.7 K/mcL (1.6-8.9); Platelet Estimate Normal (Normal); Reactive Lymphocytes Present (Not Present); Toxic Granulation Present (Not Present)
[2017-03-08 03:54] LABS: Burr Cells 1+ (Not Present); Ovalocytes 1+ (Not Present); Poikilocytosis 2+ (Not Present)
[2017-03-08 03:56] LABS: Polychromasia 1+ (Not Present)
--- NOTE | 2017-03-08 06:59 | Event Note ---
Date of Encounter: 03/07/17 Time of Encounter: 16:00 I personally reviewed the barium enema findings. She has a large leak from a segment of diverticular disease in the sigmoid colon. Sleek is contained in the pelvis and likely is a complex stool abscess. This will not heal without diversion. I recommended Oh's procedure I discussed this with the patient she understands and we will proceed tomorrow with Oh's procedure Alonzo Thompson MD FACS
--- NOTE | 2017-03-08 07:31 | Internal Med Progress Note ---
<Jabier Walker - Last Filed: 03/08/17 07:25> Date of Encounter: 03/08/17 Time of Encounter: 07:25 - Assessment and plan (1) Perforation bowel Current Visit: Yes Status: Suspected Assessment and plan: Ct/abdomen pelvis shows containe bowel perforation in the sigmoid colon which is between bladder and uterus, without free air of fluid collection -tenderness to palpation in the RLQ and pain with percussion of LLQ, soft belly , no peritoneal signs, absent rigidity -denies pervious abdominal surgeries, denies colonoscopy in past -gastrograffin enema shows contained sigmoid colon perforation measuring 8.6x7.6cm. -Oh's procedure this AM -continue zosyn day 3 (2) Sepsis Current Visit: Yes Status: Acute Assessment and plan: Tachycardic, leukocytosis, CT abdomen/pelvis shows possible contained perforation Urinalysis shows urine bacteria Urine culture negative Blood cultures pending chapin 2nd to sigmoid diverticular perforation -continue zosyn day 3 -Oh's procedure today Qualifiers: Sepsis type: sepsis due to unspecified organism Qualified Code(s): A41.9 - Sepsis, unspecified organism (3) Atrial fibrillation with rapid ventricular response Current Visit: Yes Status: Resolved Assessment and plan: 2nd to dehydration, sepsis denies hx of cardiac disease No hx of atrial fibrillation. echocardiogram pending. tsh WNL afib, rate controlled in 90s Converted after digoxin to sinus tachycardia cardizem drip on hold Metoprolol 100mg BID continue telemetry (4) Essential (primary) hypertension Current Visit: Yes Status: Chronic Assessment and plan: stable on metoprolol. continue to monitor BP. (5) UTI (urinary tract infection) Current Visit: Yes Status: Ruled-out Assessment and plan: Urinalysis shows urine bacteria. Urine culture negative less chapin UTI on zosyn for perforated colon. Qualifiers: Urinary tract infection type: site unspecified Hematuria presence: without hematuria Qualified Code(s): N39.0 - Urinary tract infection, site not specified (6) Hyponatremia Current Visit: Yes Status: Acute Assessment and plan: stable Sodium of 129. Caculated osmolality 276. 2nd to volume depletion. will continue to monitor with BMP (7) Chronic back pain Current Visit: Yes Status: Chronic Assessment and plan: hx of degenerative disk disease, osteoarthritis states she gets epidural shots outpatient on prednisone for osteoarthritis, and neproxen. will start prednisone 10mg daily. Qualifiers: Back pain location: low back pain Back pain laterality: unspecified Sciatica presence: unspecified whether sciatica present Qualified Code(s): M54.5 - Low back pain; G89.29 - Other chronic pain (8) DVT prophylaxis Current Visit: Yes Status: Acute Assessment and plan: heparin SQ - Subjective Interval history: No problems overnight. patient will undergo Oh's procedure today for perforated diverticula in sigmoid colon. - Constitutional Vitals: Temp Pulse Resp BP Pulse Ox 98.5 F 103 16 132/61 97 03/08/17 07:14 03/08/17 07:14 03/08/17 07:14 03/08/17 07:14 03/08/17 07:14 General appearance: Present: A&O X 3, pleasant - Respiratory Respiratory exam: Present: CTAB. Absent: accessory muscle use, rales, rhonchi, wheezes - Cardiovascular Cardiovascular exam: Present: RRR, +S1, +S2. Absent: diastolic murmur, gallop, rubs, systolic murmur - GI/Abdominal GI/Abdominal exam: Present: normal bowel sounds, soft, tenderness (right and left lower quadrant). Absent: distended - Extremities Exam Extremities exam: Present: warm, radial pulses palpable and symetrical. Absent : calf tenderness, cyanotic, pedal edema - Skin Skin exam: Present: dry, intact Internal Medicine: Result - Labs CBC & Chem 7: 03/08/17 03:10 03/08/17 03:10 Labs: Short CBC 03/08/17 Range/Units 03:10 WBC 18.8 H (4.3-11.1) K/mcL Hgb 9.4 L (11.5-15.4) g/dL Hct 28.0 L (35.3-44.9) % Plt Count 332 (140-400) K/mcL Neutrophils # 11.7 H (1.6-8.9) K/mcL BMP 03/08/17 03:10 Sodium 130 L Potassium 3.6 Chloride 104 Carbon Dioxide 18 L BUN 21 H Creatinine 0.81 Glucose 100 H Calcium 7.6 L - Impressions Impressions Barium Enema 03/07/17 10:16 IMPRESSION: Contained sigmoid colon perforation measuring about 8.6 x 7.6 cm. No evidence of free spill of contrast into the peritoneal cavity. This is suspected to be diverticular in origin. Findings were discussed with Pushpa Hollingsworth at 12:49 pm on 03/07/2017. D/ / Anton Santiago MD / Anton Santiago MD Interpreting Provider: Anton Santiago MD Consult Discharge Plan - Plan Referrals: Aaron Levy, CAR REFINISHER [Primary Care Provider] - <Hung Penaloza P - Last Filed: 03/08/17 08:34> Date of Encounter: 03/08/17 - Constitutional Vitals: Temp Pulse Resp BP Pulse Ox 98.5 F 103 16 132/61 97 03/08/17 07:14 03/08/17 07:14 03/08/17 07:14 03/08/17 07:14 03/08/17 07:14 Internal Medicine: Result - Labs CBC & Chem 7: 03/08/17 03:10 03/08/17 03:10 Labs: Short CBC 03/08/17 Range/Units 03:10 WBC 18.8 H (4.3-11.1) K/mcL Hgb 9.4 L (11.5-15.4) g/dL Hct 28.0 L (35.3-44.9) % Plt Count 332 (140-400) K/mcL Neutrophils # 11.7 H (1.6-8.9) K/mcL BMP 03/08/17 03:10 Sodium 130 L Potassium 3.6 Chloride 104 Carbon Dioxide 18 L BUN 21 H Creatinine 0.81 Glucose 100 H Calcium 7.6 L - Impressions Impressions Barium Enema 03/07/17 10:16 IMPRESSION: Contained sigmoid colon perforation measuring about 8.6 x 7.6 cm. No evidence of free spill of contrast into the peritoneal cavity. This is suspected to be diverticular in origin. Findings were discussed with Pushpa Hollingsworth at 12:49 pm on 03/07/2017. D/ / Anton Santiago MD / Anton Santiago MD Interpreting Provider: Anton Santiago MD - Attending Attestation I examined this patient and my medical decision-making was reviewed with the EMBOSSED OR IMPRESSED LETTERING PAINTER/PA/Advanced Practice Nurse/Resident Physician. I agree with the documented findings, disposition and treatment plan as described except to the extent set forth below. Surgery on board. We will follow recommendations from surgery.
[2017-03-08] MEDS: Metoprolol 100 MG TABLET PO SCH (07:45)
[2017-03-08] MEDS: predniSONE 10 MG TABLET PO SCH (08:01)
[2017-03-08] MEDS: Pantoprazole 40 MG VIAL IVP SCH (08:03)
--- NOTE | 2017-03-08 08:34 | Anesthesia Evaluation PreOp ---
Date of Encounter: 03/08/17 Time of Encounter: 10:25 - Past History Planned Operation: Oh's procedure Cardiac History: HTN, Arrhythmia (A fib (new onset this admission) -- current in A fib with RVR) Pulmonary History: Denies Any Significant HX VAUDEVILLE ACTOR History: Denies Any Significant HX Other Medical History: Other (chronic constipation, bowel perforation) Anesthesia History: No Prior Anesthetic Complications, Past Anesthesia (R breast lumpectomy) Alcohol Use: none Drug use: none Medications and Allergies Aspirin [Ecotrin] 325 mg PO DAILY 03/06/17 [History] Cholecalciferol (Vitamin D3) [Vitamin D] 1,000 unit PO DAILY 03/06/17 [History] Ferrous Sulfate [Iron] 325 mg PO DAILY 03/06/17 [History] Lansoprazole [Prevacid] 30 mg PO DAILY 03/06/17 [History] Metoprolol Succinate 150 mg PO DAILY 03/06/17 [History] Multivitamin [One Daily Essential] 1 tab PO DAILY 03/06/17 [History] Naproxen Sodium [Aleve] 440 mg PO BID PRN 03/06/17 [History] Olmesartan/Hydrochlorothiazide [Benicar Hct 40-25 mg Tablet] 1 tab PO DAILY 11/21 [History] [place]-3/Dha/Epa/Fish Oil [Fish Oil 1,000 mg Softgel] 1,000 mg PO DAILY 03/06/17 [History] PredniSONE [Liv] 10 mg PO BID 03/06/17 [History] Allergies No Known Allergies Allergy (Verified 03/05/17 17:16) - Meds/Allergy Pre-op Review Medications Reviewed: Yes Allergies Reviewed: Yes Beta Blockers on Current Med List: Yes If Beta Blockers taken, Date/Time (Last Dose taken): 03-08-2017 metoprolol 7:45 Anesthesia Results - Labs 03/08/17 03:10 03/08/17 03:10 - Imaging EKG: report reviewed, image reviewed (ST with first degree AVB, LAD, low voltage precordial leads) Additional studies: TTE: LVEF 55-60% no sign valvular dysfunction Anesthesia Exam Last Vital Signs Temp 98.5 F 03/08/17 07:14 Pulse 103 03/08/17 07:14 Resp 16 03/08/17 07:14 BP 132/61 03/08/17 07:14 Pulse Ox 97 03/08/17 07:14 Weight: 83 kg - HEENT Pupil (Motor): Pupils equal, EOMI Mallampati: III Teeth: Poor dentition Oral Opening: Greater than 3 - VAUDEVILLE ACTOR LOC: Oriented VAUDEVILLE ACTOR Motor: Normal RUE, Normal LUE, Normal RLE, Normal LLE, Normal Face - Cardiac Rhythm: Irregular - Pulmonary Breath Sounds: bilateral Clear Anesthesia Assess/Plan ASA Score: 3 Modified Candelario Scale for Level of Consciousness: Cooperative, oriented, and tranquil Anesthetic Plan: General Monitoring Plan: Standard Monitors Recovery Plan: PACU
[2017-03-08] MEDS ORDERED: Lidocaine -MPF 2% 2 ML VIAL ONE (08:49)
[2017-03-08] MEDS ORDERED: *HR* Succinylcholine 200 MG/10 ML VIAL IVP ONE (08:50)
[2017-03-08] MEDS ORDERED: *HR* FentaNYL (PF) 100 MCG/2 ML VIAL ONE ×2 (08:51→11:44)
[2017-03-08] MEDS ORDERED: Ringers Solution, Lactated 1,000 ML ONE (09:39)
[2017-03-08] MEDS ORDERED: *HR* Etomidate 40 MG/20 ML VIAL IVP ONE (10:07)
[2017-03-08] MEDS ORDERED: Ondansetron 4 MG/2 ML VIAL ONE (11:05)
[2017-03-08] MEDS ORDERED: Dexamethasone 4 MG/ML VIAL ONE (11:05)
[2017-03-08] MEDS ORDERED: *HR* Rocuronium Bromide 50 MG/5 ML VIAL ONE (11:05)
[2017-03-08] MEDS ORDERED: Neostigmine Methylsulfate 3 MG/3 ML SYRINGE ONE (11:26)
[2017-03-08] MEDS ORDERED: Povidone-Iodine 28.4 GM TUBE TP ONE (11:26)
[2017-03-08] MEDS ORDERED: *HR* HYDROmorphone (PF) 1 MG/ML SYRINGE IVP PRN ×2 (11:31→13:02)
[2017-03-08] MEDS ORDERED: cefOXitin 2,000 MG in D5% in Water (Mini-Bag+) 100 ML IVPB ONE (11:34)
[2017-03-08] MEDS ORDERED: Ketorolac 30 MG/ML VIAL ONE (11:54)
--- NOTE | 2017-03-08 12:06 | Operative Note ---
Date of procedure: 03/08/17 Pre-op diagnosis: colonic fistula pelvic abcess Post-op diagnosis: same Procedure: Oh's procedure, sigmoid resection, end colostomy, and rectal pouch Drainage of pelvic abcess Anesthesia: SILVIO Surgeon: Alonzo Thompson Estimated blood loss (cc): 50 Specimen: Sigmoid colon Condition: stable Disposition: PACU Procedure in Detail: After informed consent the patient is taken major operative suite and placed supine position given adequate general anesthetic. Tomlinson catheter is placed. The abdomen is prepped and draped in sterile fashion utilizing ChloraPrep standard draping techniques. Timeout was taken patient was identified. I made a vertical midline incision between the umbilicus and pubis. Then the abdominal cavity. There was a rockhard mass between the sigmoid colon and the back wall of the bladder. This was the area of abscess seen on CAT scan. I used finger fracture technique to break through the wall of the abscess. The abscess was completely drained. He was full of at least 100 mL of stool and pus once the wall of the abscess was completely divided I was able to gain mobility on the rectosigmoid. I divided the rectum with a contour stapler. I divided the mid sigmoid with a contour stapler. The mesentery to the sigmoid colon was divided with clamps and hemostatic ligatures. The specimen was passed off the field. I mobilized the descending colon and sigmoid colon for a tension-free colostomy in the left midabdomen. I aggressively debrided and washed out the abscess cavity. A #10 Brandon-Monroy drain was placed in the abscess cavity. I opened an area in the left mid abdomen for the colostomy. The colon was brought tension-free through the abdominal wall with about 3-1/2 cm of overhang tension-free on the skin. The abdomen was irrigated with copious amounts of antibiotic containing solution. The midline was closed with looped 0 PDS. The skin was closed with interrupted Vicryl and skin clips. I matured the colostomy with about 12 stitches of 3 point 3-0 Vicryl the colostomy had excellent blood supply. There was no tension. The patient is transferred to recovery in stable condition. She was febrile during the case and tachycardic from atrial fibrillation rapid ventricular response. This was treated appropriately.
--- NOTE | 2017-03-08 12:45 | Anesthesia Evaluation Post Op ---
Date of Encounter: 03/08/17 Time of Encounter: 12:44 - Vital Signs Vital Signs: Last Vital Signs Temp 101.2 F H 03/08/17 12:12 Pulse 112 03/08/17 12:32 Resp 16 03/08/17 12:32 BP 115/91 03/08/17 12:32 Pulse Ox 93 03/08/17 12:32 - Lungs Lungs: Clear Ascult./Percussion - Airway Airway: Non-obstructed - Cardiovascular Irregular Rate, Baseline Rhythm (A fib prior to surgery (patient is going in and out of NSR)) - Mental Status Mental Status: Alert & Oriented, Answers Appropriately - Pain Pain Scale: 4 - Nausea Vomiting Nausea Vomiting: Not Present - Hydration Hydration: NPO, Tomlinson catheter - Discharge PostOp Status: Transfer Patient to floor
[2017-03-08] MEDS ORDERED: Naloxone 0.4 MG/ML INJ IVP PRN (13:02)
[2017-03-08] MEDS ORDERED: *HR* HYDROmorphone (PF) 1 MG/ML SYRINGE ONE (13:05)
[2017-03-08] MEDS ORDERED: Metoprolol 100 MG TABLET PO SCH (13:15)
[2017-03-08] MEDS ORDERED: 0.9 % Sodium Chloride 1,000 ML ONE (15:07)
[2017-03-08] MEDS: 0.9 % Sodium Chloride 1,000 ML IVC SCH (15:14)
[2017-03-09] MEDS: Piperacillin/Tazobactam 3.375 GM in D5% in Water (Mini-Bag+) 100 ML IVPB SCH ×3 (00:17→17:24)
[2017-03-09] MEDS: *HR* Heparin 5,000 UNIT/ML VIAL SQ SCH ×3 (00:17→17:24)
[2017-03-09] MEDS: Ketorolac 15 MG/ML VIAL IVP PRN (06:28)
[2017-03-09 07:00] LABS: BUN/Creatinine Ratio 33 (6-26); Blood Urea Nitrogen 27 mg/dL (7-20); Calcium 7.4 mg/dL (8.6-10.8); Carbon Dioxide 19 mEq/L (19-29); Chloride 106 mEq/L (98-109); Glucose 101 mg/dL (70-99); Magnesium 1.7 mg/dL (1.6-2.6); Osmolality,Calculated 279 (280-300); Phosphorous 4.1 mg/dL (2.3-4.7); Potassium 4.1 mEq/L (3.5-4.5); Sodium 132 mEq/L (136-145); eGFR For African Americans > 60 (> 60); eGFR For Non-African Americans > 60 (> 60)
--- NOTE | 2017-03-09 08:10 | General Surgery Progress Note ---
Date of Encounter: 03/09/17 Time of Encounter: 06:45 - Assessment and Plan (1) Perforation bowel Current Visit: Yes Status: Suspected The patient is postoperative day 1 from Oh's procedure. The ostomy is pink. I do hear a few bowel sounds which is very encouraging. Brandon-Monroy drain in the abscess cavity is draining serosanguineous material. Continue maximum supportive care and antibiotic therapy Subjective Narrative: The patient feels much better today. She has some incisional pain. Her ostomy is pink. There is no function yet. The Brandon-Monroy drain is serosanguineous. She is postoperative day 1 from Oh's procedure and drainage of pelvic abscess. Objective Vital Signs - Last 8 Hours Temp Pulse Resp BP Pulse Ox 03/09/17 06:58 98.1 F 82 15 110/50 94 03/09/17 04:10 81 17 109/53 95 Intake and Output 03/08/17 03/09/17 03/09/17 23:59 07:59 15:59 Intake Total 150 / 150 0 / 0 Output Total 75 / 75 200 / 200 Balance 75 / 75 -200 / -200 Intake: IV Fluids 150 / 150 Cardizem 125 MG In 50 / 50 Dextrose 5% 100 ML @ 5 MG /HR 5 mls/hr IVC .Q24H RUSSEL Rx#:[id number] Zosyn 3.375 GM In 100 / 100 Dextrose 5% (Minibag+) 100 ML 100 ML @ 25 mls/hr IVPB Q8H RUSSEL Rx#: [id number] Oral 0 / 0 0 / 0 Output: Urine 0 / 0 0 / 0 Catheter 0 / 0 175 / 175 Wound Drainage 75 / 75 25 / 25 Right Abdomen 75 / 75 25 / 25 - General physical appearance no distress, moderate pain - Respiratory normal expansion, normal respiratory effort, clear to percussion, clear to auscultation - Cardiovascular Cardiovascular exam: Present: tachycardia, irregular rhythm, no murmurs/rubs/ gallops - Abdomen Abdomen: Present: bowel sounds present - Incision Incision: Present: clean and dry (Ostomy pink) - Neurologic normal coordination, normal sensation - Psychiatric oriented to time, oriented to person, oriented to place, speech is normal, memory intact - Labs 03/08/17 03:10 03/09/17 04:12 Diabetes panel 03/09/17 Range/Units 04:12 Sodium 132 L (136-145) mEq/L Potassium 4.1 (3.5-4.5) mEq/L Chloride 106 (98-109) mEq/L Carbon Dioxide 19 (19-29) mEq/L BUN 27 H (7-20) mg/dL Creatinine 0.82 (0.57-1.11) mg/dL Glucose 101 H (70-99) mg/dL Calcium 7.4 L (8.6-10.8) mg/dL Calcium panel 03/09/17 Range/Units 04:12 Calcium 7.4 L (8.6-10.8) mg/dL Phosphorus 4.1 (2.3-4.7) mg/dL Pituitary panel 03/09/17 Range/Units 04:12 Sodium 132 L (136-145) mEq/L Potassium 4.1 (3.5-4.5) mEq/L Chloride 106 (98-109) mEq/L Carbon Dioxide 19 (19-29) mEq/L BUN 27 H (7-20) mg/dL Creatinine 0.82 (0.57-1.11) mg/dL Glucose 101 H (70-99) mg/dL Calcium 7.4 L (8.6-10.8) mg/dL Adrenal panel 03/09/17 Range/Units 04:12 Sodium 132 L (136-145) mEq/L Potassium 4.1 (3.5-4.5) mEq/L Chloride 106 (98-109) mEq/L Carbon Dioxide 19 (19-29) mEq/L BUN 27 H (7-20) mg/dL Creatinine 0.82 (0.57-1.11) mg/dL Glucose 101 H (70-99) mg/dL Calcium 7.4 L (8.6-10.8) mg/dL - VTE Documentation of Mechanical Device: Intermittent pneumatic compression device Consult Discharge Plan - Plan Referrals: Aaron Levy, TIER AND DETONATOR [Primary Care Provider] -
--- NOTE | 2017-03-09 09:06 | Internal Med Progress Note ---
<Selvin Edwards - Last Filed: 03/09/17 13:43> Date of Encounter: 03/09/17 Time of Encounter: 09:06 - Assessment and plan (1) Perforation bowel Current Visit: Yes Status: Suspected Assessment and plan: Ct/abdomen pelvis shows containe bowel perforation in the sigmoid colon which is between bladder and uterus, without free air of fluid collection -tenderness to palpation in the RLQ and pain with percussion of LLQ, soft belly , no peritoneal signs, absent rigidity -denies pervious abdominal surgeries, denies colonoscopy in past -gastrograffin enema shows contained sigmoid colon perforation measuring 8.6x7.6cm. -Oh's procedure done yesterday, postop day 1, patient doing well postop, pt /ot on board, added incentive spirometry -continue zosyn day 4 (2) Leukocytosis Current Visit: Yes Status: Acute Assessment and plan: CT abdomen/pelvis shows possible contained perforation Urinalysis shows urine bacteria Urine culture negative Blood culture negative likley 2/2 sigmoid diverticular perforation -continue zosyn day 4 -WBC improving Qualifiers: Qualified Code(s): D72.829 - Elevated white blood cell count, unspecified (3) Atrial fibrillation with rapid ventricular response Current Visit: Yes Status: Resolved Assessment and plan: No hx of atrial fibrillation. echocardiogram pending. tsh WNL afib, rate controlled in 90s with cardizem drip at 2.5 mg/hr for being NPO AC therapy on hold due to postop day 1 continue telemetry (4) DVT prophylaxis Current Visit: Yes Status: Acute Assessment and plan: Heparin SQ TID. - Subjective Interval history: Patient seen and examined. Patient states that her abdomen has soreness around the surgical site, denies nausea or vomiting. - Constitutional Vitals: Temp Pulse Resp BP Pulse Ox 98.1 F 82 15 110/50 94 03/09/17 06:58 03/09/17 06:58 03/09/17 06:58 03/09/17 06:58 03/09/17 06:58 General appearance: Present: cooperative, A&O X 3, no acute distress, obese, answers questions appropriately - Respiratory Respiratory exam: Present: CTAB. Absent: rales, rhonchi, wheezes - Cardiovascular Cardiovascular exam: Present: irregular rhythm, +S1, +S2. Absent: clicks, gallop, rubs, systolic murmur - GI/Abdominal GI/Abdominal exam: Present: normal bowel sounds, soft, tenderness (Slightly with palpation around surgical site). Absent: distended, firm, guarding, rebound, rigid Additional comments: Surgical dressing clean, dry, intact, ostomy bag in place - Extremities Exam Extremities exam: Present: normal inspection, warm. Absent: calf tenderness, pedal edema, tenderness Internal Medicine: Result - Labs CBC & Chem 7: 03/09/17 04:12 03/09/17 04:12 Labs: BMP 03/09/17 04:12 Sodium 132 L Potassium 4.1 Chloride 106 Carbon Dioxide 19 BUN 27 H Creatinine 0.82 Glucose 101 H Calcium 7.4 L - VTE Documentation of Mechanical Device: Intermittent pneumatic compression device Consult Discharge Plan - Plan Referrals: Aaron Levy, TANK CREWMEMBER [Primary Care Provider] - <Hung Penaloza P - Last Filed: 03/09/17 16:31> Date of Encounter: 03/09/17 - Constitutional Vitals: Temp Pulse Resp BP Pulse Ox 97.6 F 91 15 122/62 94 03/09/17 16:00 03/09/17 16:00 03/09/17 16:00 03/09/17 16:00 03/09/17 16:00 Internal Medicine: Result - Labs CBC & Chem 7: 03/09/17 04:12 03/09/17 04:12 Labs: Short CBC 03/09/17 Range/Units 04:12 WBC 17.2 H (4.3-11.1) K/mcL Hgb 8.4 L (11.5-15.4) g/dL Hct 26.1 L (35.3-44.9) % Plt Count 303 (140-400) K/mcL Neutrophils # 13.8 H (1.6-8.9) K/mcL BMP 03/09/17 04:12 Sodium 132 L Potassium 4.1 Chloride 106 Carbon Dioxide 19 BUN 27 H Creatinine 0.82 Glucose 101 H Calcium 7.4 L - Attending Attestation I examined this patient and my medical decision-making was reviewed with the KEYPUNCH OPERATOR/PA/Advanced Practice Nurse/Resident Physician. I agree with the documented findings, disposition and treatment plan as described except to the extent set forth below. surgical input appreciated.
[2017-03-09 09:47] LABS: Hematocrit 26.1 % (35.3-44.9); Hemoglobin 8.4 g/dL (11.5-15.4); Mean Corpuscular HGB Conc 32.2 g/dL (31.6-35.5); Mean Corpuscular Hemoglobin 24.3 pg (28.0-33.3); Mean Corpuscular Volume 75.4 fL (83.0-100.0); Mean Platelet Volume 10.3 fL (9.4-12.4); Platelet Count 303 K/mcL (140-400); Red Blood Count 3.46 M/mcL (3.82-4.97); Red Cell Distribution Width 18.5 % (11.5-14.5)
[2017-03-09 10:07] LABS: Anisocytosis 1+ (Not Present); Eosinophils # 0.3 K/mcL (0.0-0.6); Lymphocytes # 2.4 K/mcL (0.6-4.6); Macrocytosis Present (Not Present); Microcytosis Present (Not Present); Monocytes # 0.7 K/mcL (0.0-1.3); Neutrophils # 13.8 K/mcL (1.6-8.9)
[2017-03-09 10:10] LABS: Burr Cells 1+ (Not Present); Platelet Estimate Normal (Normal); Poikilocytosis 1+ (Not Present)
[2017-03-09] MEDS: Pantoprazole 40 MG VIAL IVP SCH (11:37)
[2017-03-09] MEDS: predniSONE 10 MG TABLET PO SCH (11:52)
[2017-03-09] MEDS: 0.9 % Sodium Chloride 1,000 ML IVC SCH (17:25)
[2017-03-10] MEDS: *HR* Heparin 5,000 UNIT/ML VIAL SQ SCH ×3 (00:58→15:28)
[2017-03-10] MEDS: Piperacillin/Tazobactam 3.375 GM in D5% in Water (Mini-Bag+) 100 ML IVPB SCH ×3 (00:58→17:22)
[2017-03-10] MEDS: Ketorolac 15 MG/ML VIAL IVP PRN ×2 (01:25→15:33)
[2017-03-10 05:58] LABS: Basophils # 0.1 K/mcL (0.0-0.2); Basophils % 0.5 %; Eosinophils # 0.8 K/mcL (0.0-0.6); Eosinophils % 4.9 %; Hematocrit 24.1 % (35.3-44.9); Hemoglobin 8.1 g/dL (11.5-15.4); Immature Granulocytes % 1.2 % (0-4); Lymphocytes # 3.5 K/mcL (0.6-4.6); Mean Corpuscular HGB Conc 33.6 g/dL (31.6-35.5); Mean Corpuscular Hemoglobin 24.6 pg (28.0-33.3); Mean Corpuscular Volume 73.3 fL (83.0-100.0); Mean Platelet Volume 9.5 fL (9.4-12.4); Monocytes # 0.7 K/mcL (0.0-1.3); Monocytes % 4.5 %; Neutrophils # 10.1 K/mcL (1.6-8.9); Platelet Count 328 K/mcL (140-400); Red Blood Count 3.29 M/mcL (3.82-4.97); Red Cell Distribution Width 18.1 % (11.5-14.5); Segmented Neutrophils % 65.9 %
[2017-03-10 06:14] LABS: BUN/Creatinine Ratio 40 (6-26); Blood Urea Nitrogen 30 mg/dL (7-20); Calcium 7.5 mg/dL (8.6-10.8); Carbon Dioxide 19 mEq/L (19-29); Chloride 111 mEq/L (98-109); Glucose 76 mg/dL (70-99); Osmolality,Calculated 285 (280-300); Potassium 3.9 mEq/L (3.5-4.5); Sodium 135 mEq/L (136-145); eGFR For African Americans > 60 (> 60); eGFR For Non-African Americans > 60 (> 60)
[2017-03-10 06:19] LABS: Anisocytosis 1+ (Not Present); Microcytosis Present (Not Present); Platelet Estimate Normal (Normal); Reactive Lymphocytes Present (Not Present)
[2017-03-10] MEDS: 0.9 % Sodium Chloride 1,000 ML IVC SCH (06:44)
--- NOTE | 2017-03-10 07:33 | Internal Med Progress Note ---
<Selvin Edwards - Last Filed: 03/10/17 11:23> Date of Encounter: 03/10/17 Time of Encounter: 07:33 - Assessment and plan (1) Perforation bowel Current Visit: Yes Status: Suspected Assessment and plan: Ct/abdomen pelvis shows containe bowel perforation in the sigmoid colon which is between bladder and uterus, without free air of fluid collection -tenderness to palpation in the RLQ and pain with percussion of LLQ, soft belly , no peritoneal signs, absent rigidity -denies pervious abdominal surgeries, denies colonoscopy in past -gastrograffin enema shows contained sigmoid colon perforation measuring 8.6x7.6cm. -Oh's procedure done, postop day 2, patient doing well postop, pt/ot on board, added incentive spirometry -continue zosyn day 5, two more days of IV abx for her pelvic abscess found during surgery. (2) Leukocytosis Current Visit: Yes Status: Acute Assessment and plan: CT abdomen/pelvis shows possible contained perforation Urinalysis shows urine bacteria Urine culture negative Blood culture negative likley 2/2 sigmoid diverticular perforation which lead to pelvic abscess -continue zosyn day 5, 2 more days for duration of her IV abx -WBC improving, no fever, clinically improving. Qualifiers: Qualified Code(s): D72.829 - Elevated white blood cell count, unspecified (3) Atrial fibrillation with rapid ventricular response Current Visit: Yes Status: Resolved Assessment and plan: No hx of atrial fibrillation. echocardiogram pending. tsh WNL afib, rate controlled in 90s, will stop the cardizem drip and resume PO beta- manasa, AC therapy on hold due to postop day 2 continue telemetry (4) DVT prophylaxis Current Visit: Yes Status: Acute Assessment and plan: Heparin SQ TID. - Subjective Interval history: Patient seen and examined. Patient states that her abdomen has soreness around the surgical site is better, denies nausea or vomiting, start eating this AM. - Constitutional Vitals: Temp Pulse Resp BP Pulse Ox 97.9 F 106 22 145/64 94 03/09/17 23:01 03/10/17 05:30 03/10/17 05:30 03/10/17 05:30 03/10/17 05:30 General appearance: Present: cooperative, A&O X 3, no acute distress, obese, answers questions appropriately - Respiratory Respiratory exam: Present: CTAB. Absent: rales, rhonchi, wheezes - Cardiovascular Cardiovascular exam: Present: irregular rhythm, +S1, +S2. Absent: gallop, rubs , systolic murmur - GI/Abdominal GI/Abdominal exam: Present: normal bowel sounds, soft, tenderness (slightly around surgical site). Absent: distended, firm, rebound, rigid Additional comments: surgical dressing c/d/i, colostomy bag in place - Extremities Exam Extremities exam: Present: warm, radial pulses palpable and symetrical. Absent : calf tenderness, pedal edema, tenderness Internal Medicine: Result - Labs CBC & Chem 7: 03/10/17 05:39 03/10/17 05:39 Labs: Short CBC 03/09/17 03/10/17 Range/Units 04:12 05:39 WBC 17.2 H 15.3 H (4.3-11.1) K/mcL Hgb 8.4 L 8.1 L (11.5-15.4) g/dL Hct 26.1 L 24.1 L (35.3-44.9) % Plt Count 303 328 (140-400) K/mcL Neutrophils # 13.8 H 10.1 H (1.6-8.9) K/mcL BMP 03/10/17 05:39 Sodium 135 L Potassium 3.9 Chloride 111 H Carbon Dioxide 19 BUN 30 H Creatinine 0.75 Glucose 76 Calcium 7.5 L - VTE Documentation of Mechanical Device: Intermittent pneumatic compression device Consult Discharge Plan - Plan Referrals: Aaron Levy SOLE CONFORMING MACHINE OPERATOR [Primary Care Provider] - <Cristo Null - Last Filed: 03/10/17 16:36> Date of Encounter: 03/10/17 - Assessment and plan (1) Perforation bowel Current Visit: Yes Status: Suspected (2) Atrial fibrillation Current Visit: Yes Status: Acute Assessment and plan: Attempt to change to PO meds. Qualifiers: Atrial fibrillation type: persistent Qualified Code(s): I48.1 - Persistent atrial fibrillation (3) Abscess of abdominal cavity Current Visit: Yes Status: Acute Assessment and plan: Related to presumed diverticular perforation. Currently on IV abx. Drain. (4) Essential (primary) hypertension Current Visit: Yes Status: Chronic Assessment and plan: Controlled at this time. (5) Anemia Current Visit: Yes Status: Suspected Assessment and plan: Pt with microcytic anemia. Combination of causes: ? chronic blood loss, acute blood loss. Monitor. Qualifiers: Anemia type: iron deficiency Qualified Code(s): D50.0 - Iron deficiency anemia secondary to blood loss (chronic) (6) Hyponatremia Current Visit: Yes Status: Acute Assessment and plan: Now on clear liquids. Improving. Continue to follow for ow. (7) Leucocytosis Current Visit: Yes Status: Acute Assessment and plan: Related to acute infection, stress from surgery, Qualifiers: Leukocytosis type: unspecified Qualified Code(s): D72.829 - Elevated white blood cell count, unspecified (8) 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 - Constitutional Vitals: Temp Pulse Resp BP Pulse Ox 98.4 F 99 15 137/66 95 03/10/17 13:00 03/10/17 13:00 03/10/17 13:00 03/10/17 13:00 03/10/17 13:00 Internal Medicine: Result - Labs CBC & Chem 7: 03/10/17 05:39 03/10/17 05:39 Labs: Short CBC 03/10/17 Range/Units 05:39 WBC 15.3 H (4.3-11.1) K/mcL Hgb 8.1 L (11.5-15.4) g/dL Hct 24.1 L (35.3-44.9) % Plt Count 328 (140-400) K/mcL Neutrophils # 10.1 H (1.6-8.9) K/mcL BMP 03/10/17 05:39 Sodium 135 L Potassium 3.9 Chloride 111 H Carbon Dioxide 19 BUN 30 H Creatinine 0.75 Glucose 76 Calcium 7.5 L - Attending Attestation I examined this patient and my medical decision-making was reviewed with the Resident Physician on 03/10/17. I agree with the documented findings, disposition and treatment plan as described except to the extent set forth below. Ms. Beckwith is currently admitted for acute perforated sigmoid diverticulitis with abscess. She remains high risk due to potential for worsening cardiac and post operative complications. Ms. Beckwith began PO clear liquids today. She is tolerating OK at this time. Pain is tolerable. No fever or chills. No nausea. Heart rate elevated again and Cardizem increased. Exam Alert. Comfortable Mucus membranes moist Heart irreg and tachycardic Lungs diminished No edema I/P 1. Acute perforated sigmoid diverticulitis with abscess - POD 2. Day 5 of Zosyn but only 2 days since surgery. No cultures. 2. A fib with RVR - PO med restarted. Hopefully can stop IV drip. 3. PT/OT Further diagnoses and plan as above.
--- NOTE | 2017-03-10 08:41 | Wound Care Progress Note ---
Date of Encounter: 03/10/17 Time of Encounter: 07:50 Patient/Caregiver Education - Learning Barriers Hearing Ability: Normal Patient Wound Assessment - Vital Signs Temperature: 97.9 F Pulse Rate: 93 Respiratory Rate: 15 Blood Pressure: 136/64 O2 Sat by Pulse Oximetry: 93 - Pain Present Pain Present: Reports No Pain Subjective Narrative: The patient is doing quite well today she is having minimal amounts of pain. She has had no febrile episodes during her white blood cell count is trending downward. She has good bowel sounds is ready for clearly diet. The ostomy is pink Objective Last Vital Signs Temp 97.9 F 03/10/17 07:39 Pulse 93 03/10/17 07:39 Resp 15 03/10/17 07:39 BP 136/64 03/10/17 07:39 Pulse Ox 93 03/10/17 07:39 - General physical appearance well developed, well nourished, moderate pain - Cardiac Cardiovascular exam: RRR, no murmurs/rubs/gallops - Respiratory normal expansion, normal respiratory effort, clear to percussion, clear to auscultation - Abdomen Abdomen: bowel sounds present (Incision is clean. ostomy is pink), soft, non tender - Labs 03/10/17 05:39 03/10/17 05:39 Diabetes panel 03/10/17 Range/Units 05:39 Sodium 135 L (136-145) mEq/L Potassium 3.9 (3.5-4.5) mEq/L Chloride 111 H (98-109) mEq/L Carbon Dioxide 19 (19-29) mEq/L BUN 30 H (7-20) mg/dL Creatinine 0.75 (0.57-1.11) mg/dL Glucose 76 (70-99) mg/dL Calcium 7.5 L (8.6-10.8) mg/dL Calcium panel 03/10/17 Range/Units 05:39 Calcium 7.5 L (8.6-10.8) mg/dL Pituitary panel 03/10/17 Range/Units 05:39 Sodium 135 L (136-145) mEq/L Potassium 3.9 (3.5-4.5) mEq/L Chloride 111 H (98-109) mEq/L Carbon Dioxide 19 (19-29) mEq/L BUN 30 H (7-20) mg/dL Creatinine 0.75 (0.57-1.11) mg/dL Glucose 76 (70-99) mg/dL Calcium 7.5 L (8.6-10.8) mg/dL Adrenal panel 03/10/17 Range/Units 05:39 Sodium 135 L (136-145) mEq/L Potassium 3.9 (3.5-4.5) mEq/L Chloride 111 H (98-109) mEq/L Carbon Dioxide 19 (19-29) mEq/L BUN 30 H (7-20) mg/dL Creatinine 0.75 (0.57-1.11) mg/dL Glucose 76 (70-99) mg/dL Calcium 7.5 L (8.6-10.8) mg/dL - Assessment and Plan (1) Perforation bowel Current Visit: Yes Status: Suspected 03/10/2017. Patient is doing quite well after David's procedure. Colostomy is pink and functioning. She has good bowel sounds. We will advance her diet Consult Discharge Plan - Plan Referrals: Aaron Levy, ACCREDITATION SPECIALIST [Primary Care Provider] -
[2017-03-10] MEDS: predniSONE 10 MG TABLET PO SCH (09:14)
[2017-03-10] MEDS: Pantoprazole 40 MG VIAL IVP SCH (09:15)
[2017-03-10] MEDS: Metoprolol 100 MG TABLET PO SCH ×2 (15:28→20:16)
[2017-03-11] MEDS: Piperacillin/Tazobactam 3.375 GM in D5% in Water (Mini-Bag+) 100 ML IVPB SCH ×3 (01:34→17:22)
[2017-03-11] MEDS: *HR* Heparin 5,000 UNIT/ML VIAL SQ SCH ×3 (01:35→16:14)
[2017-03-11] MEDS: *HR* OxyCODONE/APAP 5/325 TABLET PO PRN ×2 (01:35→17:21)
[2017-03-11 04:34] LABS: Basophils % 0.3 %; Eosinophils # 0.5 K/mcL (0.0-0.6); Eosinophils % 3.6 %; Hematocrit 23.9 % (35.3-44.9); Hemoglobin 7.9 g/dL (11.5-15.4); Immature Granulocytes % 1.5 % (0-4); Lymphocytes # 4.5 K/mcL (0.6-4.6); Lymphocytes % 32.1 %; Mean Corpuscular HGB Conc 33.1 g/dL (31.6-35.5); Mean Corpuscular Hemoglobin 24.6 pg (28.0-33.3); Mean Corpuscular Volume 74.5 fL (83.0-100.0); Mean Platelet Volume 9.8 fL (9.4-12.4); Monocytes # 0.8 K/mcL (0.0-1.3); Monocytes % 5.5 %; Platelet Count 321 K/mcL (140-400); Red Blood Count 3.21 M/mcL (3.82-4.97); Red Cell Distribution Width 18.5 % (11.5-14.5)
[2017-03-11 05:04] LABS: Anisocytosis 1+ (Not Present); Platelet Estimate Normal (Normal); Poikilocytosis 1+ (Not Present)
--- NOTE | 2017-03-11 07:55 | Internal Med Progress Note ---
<Selvin Edwards - Last Filed: 03/11/17 10:58> Date of Encounter: 03/11/17 Time of Encounter: 07:55 - Assessment and plan (1) Perforation bowel Current Visit: Yes Status: Suspected Assessment and plan: Ct/abdomen pelvis shows containe bowel perforation in the sigmoid colon which is between bladder and uterus, without free air of fluid collection -tenderness to palpation in the RLQ and pain with percussion of LLQ, soft belly , no peritoneal signs, absent rigidity -denies pervious abdominal surgeries, denies colonoscopy in past -gastrograffin enema shows contained sigmoid colon perforation measuring 8.6x7.6cm. -Oh's procedure done, postop day 3, patient doing well postop, pt/ot on board and recommended rehab, added incentive spirometry -continue zosyn day 6, 1 more days of IV abx for her pelvic abscess found during surgery. (2) Leukocytosis Current Visit: Yes Status: Acute Assessment and plan: CT abdomen/pelvis shows possible contained perforation Urinalysis shows urine bacteria Urine culture negative Blood culture negative likley 2/2 sigmoid diverticular perforation which lead to pelvic abscess -continue zosyn day 6, 1 more day for duration of her IV abx -WBC improving, no fever, clinically improving. Qualifiers: Qualified Code(s): D72.829 - Elevated white blood cell count, unspecified (3) Atrial fibrillation with rapid ventricular response Current Visit: Yes Status: Resolved Assessment and plan: No hx of atrial fibrillation. echocardiogram pending. tsh WNL afib, rate controlled in 90s with PO beta-manasa, AC therapy on hold due to postop day 3 continue telemetry (4) DVT prophylaxis Current Visit: Yes Status: Acute Assessment and plan: Heparin SQ TID. - Subjective Interval history: Patient seen and examined. Patient states that her abdominal soreness around the surgical site is better, denies nausea or vomiting, had bowel movement, tolerating diet fine. - Constitutional Vitals: Temp Pulse Resp BP Pulse Ox 97.4 F L 87 16 147/77 97 03/11/17 06:36 03/11/17 06:36 03/11/17 06:36 03/11/17 06:36 03/11/17 06:36 General appearance: Present: cooperative, A&O X 3, no acute distress, obese, answers questions appropriately - Respiratory Respiratory exam: Present: CTAB. Absent: accessory muscle use, chest wall tenderness, rales, rhonchi, wheezes - Cardiovascular Cardiovascular exam: Present: irregular rhythm, +S1, +S2. Absent: gallop, rubs , systolic murmur - GI/Abdominal GI/Abdominal exam: Present: soft, tenderness (slightly around surgical site). Absent: distended, firm, guarding Additional comments: surgical dressing c/d/i, colostomy bag in place - Extremities Exam Extremities exam: Present: normal inspection, warm, radial pulses palpable and symetrical. Absent: calf tenderness, pedal edema, tenderness Internal Medicine: Result - Labs CBC & Chem 7: 03/11/17 03:47 03/10/17 05:39 Labs: Short CBC 03/11/17 Range/Units 03:47 WBC 14.0 H (4.3-11.1) K/mcL Hgb 7.9 L (11.5-15.4) g/dL Hct 23.9 L (35.3-44.9) % Plt Count 321 (140-400) K/mcL Neutrophils # 8.0 (1.6-8.9) K/mcL - VTE Documentation of Mechanical Device: Intermittent pneumatic compression device Consult Discharge Plan - Plan Referrals: Aaron Levy, MECHANIC HELPER [Primary Care Provider] - <Cristo Null - Last Filed: 03/11/17 15:16> Date of Encounter: 03/11/17 - Assessment and plan (1) Abscess of abdominal cavity Current Visit: Yes Status: Acute Assessment and plan: TAMIKA still in place. (2) Perforation bowel Current Visit: Yes Status: Suspected (3) Atrial fibrillation Current Visit: Yes Status: Acute Qualifiers: Atrial fibrillation type: paroxysmal Qualified Code(s): I48.0 - Paroxysmal atrial fibrillation (4) Essential (primary) hypertension Current Visit: Yes Status: Chronic (5) Anemia Current Visit: Yes Status: Suspected Assessment and plan: Recheck tomorrow with type and cross. May need transfusion. Qualifiers: Anemia type: iron deficiency Qualified Code(s): D50.0 - Iron deficiency anemia secondary to blood loss (chronic) (6) Hyponatremia Current Visit: Yes Status: Acute Assessment and plan: Recheck tomorrow. 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 I agree with the documented findings, disposition and treatment plan as described except to the extent set forth below. Ms. Beckwith is currently admitted for acute bowel perforation and abdominal abscess. She remains high risk due to potential for worsening infectious and cardiac status. Ms. Beckwith is feeling overall better. Her diet has been increased for dinner today. Pain is tolerable. She is still on IV abx. No diarrhea. No fever or chills. WBC slowly improving. Hemoglobin slightly less today. Exam Alert. Comfortable Heart reg at this time. Lungs clear. Abd soft I/P 1. Acute bowel perf - 2. Abdominal abscess 3. Anemia due to acute and chronic blood loss/iron def Further diagnoses and plan as above. Continue IV abx then to PO for another week (Augmentin). Recheck H/H. Watch WBC If continues to do OK anticipate d/c to SNF tomorrow.
[2017-03-11] MEDS: Pantoprazole 40 MG VIAL IVP SCH (08:42)
[2017-03-11] MEDS: Metoprolol 100 MG TABLET PO SCH ×2 (08:43→18:06)
[2017-03-11] MEDS: predniSONE 10 MG TABLET PO SCH (08:43)
--- NOTE | 2017-03-11 13:23 | General Surgery Progress Note ---
Date of Encounter: 03/11/17 Time of Encounter: 13:20 - Assessment and Plan (1) Perforation bowel Current Visit: Yes Status: Suspected The patient is postoperative day 1 from Oh's procedure. The ostomy is pink. I do hear a few bowel sounds which is very encouraging. Brandon-Monroy drain in the abscess cavity is draining serosanguineous material. Continue maximum supportive care and antibiotic therapy 03/11/2017. Today the patient just looks great she is sitting up in a chair eating full liquid diet. We will advance her regular diet. We will plan to remove the Brandon-Monroy drain tomorrow. She should be okay for extended care facility Subjective Narrative: The patient is up to the chair and doing well ostomy is functioning. She can advance to regular diet. We will plan to remove her Brandon-Monroy drain tomorrow. I think it is reasonable for extended care facility tomorrow Objective Vital Signs - Last 8 Hours Temp Pulse Resp BP Pulse Ox 03/11/17 11:31 97.5 F L 75 16 155/85 98 03/11/17 06:36 97.4 F L 87 16 147/77 97 Intake and Output 03/10/17 03/11/17 03/11/17 23:59 07:59 15:59 Intake Total 100 / 100 100 / 100 840 / 840 Output Total 125 / 125 235 / 235 450 / 450 Balance -25 / -25 -135 / -135 390 / 390 Intake: IV Fluids 100 / 100 100 / 100 Zosyn 3.375 GM In 100 / 100 100 / 100 Dextrose 5% (Minibag+) 100 ML 100 ML @ 25 mls/hr IVPB Q8H [facility] Rx#: [id number] Oral 0 / 0 0 / 0 840 / 840 Output: Stool 450 / 450 Catheter 100 / 100 175 / 175 Wound Drainage 25 / 25 60 / 60 Right Abdomen 25 / 25 60 / 60 Other: Meal Breakfast Weight 85 kg Patient Weight 03/11/17 23:59 Weight 85 kg - General physical appearance well developed, well nourished - Cardiovascular Cardiovascular exam: Present: RRR, no murmurs/rubs/gallops - Abdomen Abdomen: Present: bowel sounds present, soft, non tender - Incision Incision: Present: clean and dry (Ostomy pink and functioning) - Labs 03/11/17 03:47 03/10/17 05:39 - VTE Documentation of Mechanical Device: Intermittent pneumatic compression device Consult Discharge Plan - Plan Referrals: Aaron Levy, FLEET MAINTENANCE MANAGER [Primary Care Provider] -
[2017-03-11] MEDS: *HR* Metoprolol 5 MG/5 ML VIAL IVP PRN (18:03)
[2017-03-12] MEDS: *HR* Heparin 5,000 UNIT/ML VIAL SQ SCH ×3 (01:42→20:11)
[2017-03-12] MEDS: Piperacillin/Tazobactam 3.375 GM in D5% in Water (Mini-Bag+) 100 ML IVPB SCH ×3 (01:43→20:11)
--- NOTE | 2017-03-12 08:07 | Internal Med Progress Note ---
<Selvin Edwards - Last Filed: 03/12/17 10:58> Date of Encounter: 03/12/17 Time of Encounter: 08:07 - Assessment and plan (1) Perforation bowel Current Visit: Yes Status: Suspected Assessment and plan: Ct/abdomen pelvis shows containe bowel perforation in the sigmoid colon which is between bladder and uterus, without free air of fluid collection -tenderness to palpation in the RLQ and pain with percussion of LLQ, soft belly , no peritoneal signs, absent rigidity -denies pervious abdominal surgeries, denies colonoscopy in past -gastrograffin enema shows contained sigmoid colon perforation measuring 8.6x7.6cm. -Oh's procedure done, postop day 4, patient doing well postop, pt/ot on board and recommended rehab, added incentive spirometry -continue zosyn last day of IV abx for her pelvic abscess found during surgery, d/c blas we need to check CBC today to make sure hgb is above 8. (2) Leukocytosis Current Visit: Yes Status: Acute Assessment and plan: CT abdomen/pelvis shows possible contained perforation Urinalysis shows urine bacteria Urine culture negative Blood culture negative [facility] 2/2 sigmoid diverticular perforation which lead to pelvic abscess -continue zosyn last day for duration of her IV abx -WBC improving, no fever, clinically improving. Qualifiers: Qualified Code(s): D72.829 - Elevated white blood cell count, unspecified (3) Atrial fibrillation with rapid ventricular response Current Visit: Yes Status: Resolved Assessment and plan: No hx of atrial fibrillation. echocardiogram pending. tsh WNL afib, rate controlled in 90s with PO beta-manasa, AC therapy on hold due to postop day 4 continue telemetry (4) DVT prophylaxis Current Visit: Yes Status: Acute Assessment and plan: Heparin SQ TID. - Subjective Interval history: Patient seen and examined. Patient states that her abdominal soreness around the surgical site is same, denies nausea or vomiting, had bowel movement, tolerating diet fine. - Constitutional Vitals: Temp Pulse Resp BP Pulse Ox 97.4 F L 100 16 157/76 96 03/12/17 06:30 03/12/17 06:30 03/12/17 06:30 03/12/17 06:30 03/12/17 06:30 General appearance: Present: cooperative, A&O X 3, no acute distress, obese, answers questions appropriately - Respiratory Respiratory exam: Present: CTAB. Absent: accessory muscle use, chest wall tenderness, rales, rhonchi, wheezes - GI/Abdominal GI/Abdominal exam: Present: normal bowel sounds, soft, tenderness (around surgical dressing area). Absent: distended, firm, guarding Additional comments: colostomy bag in place - Extremities Exam Extremities exam: Present: normal inspection, warm, radial pulses palpable and symetrical. Absent: calf tenderness, tenderness Internal Medicine: Result - Labs CBC & Chem 7: 03/11/17 03:47 03/10/17 05:39 - VTE Documentation of Mechanical Device: Intermittent pneumatic compression device Consult Discharge Plan - Plan Referrals: Aaron Levy, SSIS ARCHITECT [Primary Care Provider] - <Cristo Null - Last Filed: 03/12/17 17:55> Date of Encounter: 03/12/17 - Assessment and plan (1) Ileus Current Visit: Yes Status: Acute Assessment and plan: NPO. Reglan. (2) Atrial fibrillation Current Visit: Yes Status: Acute Assessment and plan: Rate control needed. Now that NPO may need to restart card drip. Qualifiers: Atrial fibrillation type: paroxysmal Qualified Code(s): I48.0 - Paroxysmal atrial fibrillation (3) Abscess of abdominal cavity Current Visit: Yes Status: Acute Assessment and plan: Will continue IV abx while NPO (4) Perforation bowel Current Visit: Yes Status: Suspected (5) Essential (primary) hypertension Current Visit: Yes Status: Chronic (6) Anemia Current Visit: Yes Status: Suspected Qualifiers: Anemia type: iron deficiency Qualified Code(s): D50.0 - Iron deficiency anemia secondary to blood loss (chronic) (7) Hyponatremia Current Visit: Yes Status: Acute (8) Leucocytosis Current Visit: Yes Status: Acute Qualifiers: Leukocytosis type: unspecified Qualified Code(s): D72.829 - Elevated white blood cell count, unspecified (9) 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 - Constitutional Vitals: Temp Pulse Resp BP Pulse Ox 98.0 F 115 16 121/82 94 03/12/17 16:11 03/12/17 17:35 03/12/17 17:35 03/12/17 17:35 03/12/17 17:35 Internal Medicine: Result - Labs CBC & Chem 7: 03/12/17 17:13 03/10/17 05:39 Labs: Short CBC 03/12/17 Range/Units 17:13 WBC 14.4 H (4.3-11.1) K/mcL Hgb 8.8 L (11.5-15.4) g/dL Hct 26.9 L (35.3-44.9) % Plt Count 358 (140-400) K/mcL - Impressions Impressions KUB X-Ray 03/12/17 16:38 IMPRESSION: 1. Gaseous distention of small large bowel, likely related to an ileus following resection of presume sigmoid colon and secondary to bowel perforation. 2. There is still small amount of contrast noted in the colon and rectal vault. D/ / Lito Farmer MD / Lito Farmer MD Interpreting Provider: Lito Farmer MD - Attending Attestation I examined this patient and my medical decision-making was reviewed with the Resident Physician on 03/12/17. I agree with the documented findings, disposition and treatment plan as described except to the extent set forth below. Ms. Beckwith is currently admitted for acute bowel perforation and abscess. She remains high risk due recent development of ileus and rapid atrial fibrillation. Ms. Beckwith has been nauseous throughout the day. She has had emesis as well. Her heartrate has been elevated. No CP. Some upper abd pain. Exam Alert. Uncomfortable due to nausea. Heart tachy and irregular Lungs clear Scant bowel sounds KUB - ileus I/P 1. Acute post op ileus - NPO except ice chips. Reglan for nausea 2. Rapid a fib - related to acute illness. Fluids. PRN meds. Further diagnoses and plan as above.
--- NOTE | 2017-03-12 09:38 | General Surgery Progress Note ---
Date of Encounter: 03/12/17 Time of Encounter: 07:10 - Assessment and Plan (1) Perforation bowel Current Visit: Yes Status: Suspected The patient is postoperative day 1 from Oh's procedure. The ostomy is pink. I do hear a few bowel sounds which is very encouraging. Brandon-Monroy drain in the abscess cavity is draining serosanguineous material. Continue maximum supportive care and antibiotic therapy 03/11/2017. Today the patient just looks great she is sitting up in a chair eating full liquid diet. We will advance her regular diet. We will plan to remove the Brandon-Monroy drain tomorrow. She should be okay for extended care facility 03/12/2017 patient looks very well. We will remove the Brandon-Monroy drain today. She should be okay for extended care facility. Tomlinson catheter can be removed at any time Subjective Narrative: The patient is doing quite well and has no complaints. Her midline is well- healed. Her ostomy is pink. The Brandon-Monroy drain is serosanguineous. we will remove the Brandon-Monroy drain today. Tomlinson catheter can be removed at any time. Objective Vital Signs - Last 8 Hours Temp Pulse Resp BP Pulse Ox 03/12/17 06:30 97.4 F L 100 16 157/76 96 03/12/17 03:31 97.6 F 95 16 164/79 96 Intake and Output 03/11/17 03/12/17 03/12/17 23:59 07:59 15:59 Intake Total 100 / 100 0 / 0 320 / 320 Output Total 200 / 200 680 / 680 Balance -100 / -100 -680 / -680 320 / 320 Intake: IV Fluids 100 / 100 Zosyn 3.375 GM In 100 / 100 Dextrose 5% (Minibag+) 100 ML 100 ML @ 25 mls/hr IVPB Q8H [facility] Rx#: [id number] Oral 0 / 0 0 / 0 320 / 320 Output: Stool 150 / 150 Catheter 175 / 175 500 / 500 Wound Drainage 25 / 30 / 30 Right Abdomen / 30 / 30 Other: Meal Breakfast Percent of Meal Consumed 60% Weight 88.3 kg Patient Weight 03/12/17 23:59 Weight 88.3 kg - General physical appearance well developed, well nourished, no pain - Respiratory normal expansion, normal respiratory effort, clear to percussion, clear to auscultation - Cardiovascular Cardiovascular exam: Present: RRR, no murmurs/rubs/gallops - Abdomen Abdomen: Present: bowel sounds present, soft, non tender - Incision Incision: Present: clean and dry (Ostomy pink) - Neurologic normal coordination, normal sensation - Psychiatric oriented to time, oriented to person, oriented to place, speech is normal, memory intact - Labs 03/11/17 03:47 03/10/17 05:39 - VTE Documentation of Mechanical Device: Intermittent pneumatic compression device Consult Discharge Plan - Plan Referrals: Aaron Levy, DRAW OFF WORKER [Primary Care Provider] -
[2017-03-12] MEDS ORDERED: Lidocaine 1% 20 ML MDV ID ONE (09:54)
[2017-03-12] MEDS: predniSONE 10 MG TABLET PO SCH (10:48)
[2017-03-12] MEDS: Metoprolol 100 MG TABLET PO SCH ×2 (10:48→20:11)
[2017-03-12] MEDS: *HR* OxyCODONE/APAP 5/325 TABLET PO PRN (11:15)
[2017-03-12] MEDS: 0.9 % Sodium Chloride 1,000 ML IVC SCH (13:06)
[2017-03-12] MEDS ORDERED: Ondansetron 4 MG/2 ML VIAL IVP PRN ×2 (13:09→15:59)
[2017-03-12] MEDS ORDERED: Ondansetron 4 MG/2 ML VIAL ONE (13:12)
[2017-03-12] MEDS: *HR* Metoprolol 5 MG/5 ML VIAL IVP PRN (13:15)
[2017-03-12] MEDS ORDERED: *HR* Morphine 2 MG/ML SYRINGE IVP PRN (15:57)
[2017-03-12] MEDS ORDERED: *HR* Metoprolol 5 MG/5 ML VIAL IVP STA (17:15)
[2017-03-12 17:29] LABS: Hematocrit 26.9 % (35.3-44.9); Hemoglobin 8.8 g/dL (11.5-15.4); Mean Corpuscular HGB Conc 32.7 g/dL (31.6-35.5); Mean Corpuscular Hemoglobin 24.7 pg (28.0-33.3); Mean Corpuscular Volume 75.6 fL (83.0-100.0); Mean Platelet Volume 9.8 fL (9.4-12.4); Platelet Count 358 K/mcL (140-400); Red Blood Count 3.56 M/mcL (3.82-4.97); Red Cell Distribution Width 19.6 % (11.5-14.5)
[2017-03-12] MEDS: Metoclopramide 10 MG/2 ML VIAL IVP SCH ×2 (20:11→23:11)
[2017-03-12 21:05] LABS: Alanine Aminotransferase 8 Units/L (0-55); Albumin 1.3 g/dL (3.5-5.0); Albumin/Globulin Ratio 0.3 (1.1-2.2); Alkaline Phosphatase 71 Units/L (38-126); Aspartate Amino Transferase 11 Units/L (5-34); BUN/Creatinine Ratio 26 (6-26); Bilirubin,Total 0.6 mg/dL (0.2-1.2); Blood Urea Nitrogen 19 mg/dL (7-20); Calcium 7.4 mg/dL (8.6-10.8); Carbon Dioxide 22 mEq/L (19-29); Chloride 107 mEq/L (98-109); Glucose 112 mg/dL (70-99); Magnesium 1.3 mg/dL (1.6-2.6); Osmolality,Calculated 279 (280-300); Potassium 4.3 mEq/L (3.5-4.5); Sodium 133 mEq/L (136-145); Total Protein 5.3 g/dL (6.0-8.3); eGFR For African Americans > 60 (> 60); eGFR For Non-African Americans > 60 (> 60)
[2017-03-12] MEDS ORDERED: Magnesium Sulfate 2 GM in D5% in Water 100 ML IVPB ONE (21:45)
[2017-03-13] MEDS: 0.9 % Sodium Chloride 1,000 ML IVC SCH ×2 (03:24→13:58)
[2017-03-13] MEDS: *HR* Heparin 5,000 UNIT/ML VIAL SQ SCH ×2 (03:24→10:21)
[2017-03-13] MEDS: Metoclopramide 10 MG/2 ML VIAL IVP SCH ×4 (05:14→23:30)
--- NOTE | 2017-03-13 08:04 | General Surgery Progress Note ---
Date of Encounter: 03/13/17 Time of Encounter: 07:10 - Assessment and Plan (1) Perforation bowel Current Visit: Yes Status: Suspected The patient is postoperative day 1 from Oh's procedure. The ostomy is pink. I do hear a few bowel sounds which is very encouraging. Brandon-Monroy drain in the abscess cavity is draining serosanguineous material. Continue maximum supportive care and antibiotic therapy 03/11/2017. Today the patient just looks great she is sitting up in a chair eating full liquid diet. We will advance her regular diet. We will plan to remove the Brandon-Monroy drain tomorrow. She should be okay for extended care facility 03/12/2017 patient looks very well. We will remove the Brandon-Monroy drain today. She should be okay for extended care facility. Tomlinson catheter can be removed at any time 03/13/2017. The patient had some nausea and abdominal pain late in the day yesterday. A KUB demonstrated postoperative ileus. Today on rounds the patient 's nausea and abdominal pain are gone. We will restart her clear liquids. Her ostomy is pink and functioning well. The Brandon-Monroy drain is out. Tomlinson catheter can be removed at the discretion medical service. Subjective Narrative: The patient feels much better today her nausea is gone. A KUB demonstrated postoperative ileus which is expected in her age group after sigmoid colon resection. Since she feels better I think it is appropriate to restart her on clear liquids. Her ostomy is pink and functioning. Her Brandon-Monroy drain has been removed. The Tomlinson catheter can be removed at the discretion of the medical service. Objective Vital Signs - Last 8 Hours Temp Pulse Resp BP Pulse Ox 03/13/17 06:34 97.6 F 89 16 145/66 97 03/13/17 00:28 95 Intake and Output 03/12/17 03/13/17 03/13/17 23:59 07:59 15:59 Intake Total 0 / 0 1000 / 1000 Output Total 650 / 650 150 / 150 Balance -650 / -650 850 / 850 Intake: IV Fluids 1000 / 1000 0.9 % Sodium Chloride 1, 1000 / 1000 000 ML @ 75 mls/hr IVC . [id number] [facility] Rx#: [id number] Oral 0 / 0 0 / 0 Output: Urine 150 / 150 Emesis 500 / 500 Catheter 150 / 150 Other: # Voids 0 # Urine Diapers 1 Weight 88.3 kg Patient Weight 03/13/17 23:59 Weight 88.3 kg - General physical appearance chronically ill - Respiratory normal expansion, normal respiratory effort, clear to percussion, clear to auscultation - Cardiovascular Cardiovascular exam: Present: RRR, no murmurs/rubs/gallops - Abdomen Abdomen: Present: bowel sounds present, soft - Incision Incision: Present: clean and dry (Ostomy is pink and functioning) - Labs 03/12/17 17:13 03/12/17 20:10 Diabetes panel 03/12/17 Range/Units 20:10 Sodium 133 L (136-145) mEq/L Potassium 4.3 (3.5-4.5) mEq/L Chloride 107 (98-109) mEq/L Carbon Dioxide 22 (19-29) mEq/L BUN 19 D (7-20) mg/dL Creatinine 0.73 (0.57-1.11) mg/dL Glucose 112 H (70-99) mg/dL Calcium 7.4 L (8.6-10.8) mg/dL AST 11 (5-34) Units/L ALT 8 (0-55) Units/L Alkaline Phosphatase 71 (38-126) Units/L Albumin 1.3 L (3.5-5.0) g/dL Calcium panel 03/12/17 Range/Units 20:10 Calcium 7.4 L (8.6-10.8) mg/dL Albumin 1.3 L (3.5-5.0) g/dL Pituitary panel 03/12/17 Range/Units 20:10 Sodium 133 L (136-145) mEq/L Potassium 4.3 (3.5-4.5) mEq/L Chloride 107 (98-109) mEq/L Carbon Dioxide 22 (19-29) mEq/L BUN 19 D (7-20) mg/dL Creatinine 0.73 (0.57-1.11) mg/dL Glucose 112 H (70-99) mg/dL Calcium 7.4 L (8.6-10.8) mg/dL Adrenal panel 03/12/17 Range/Units 20:10 Sodium 133 L (136-145) mEq/L Potassium 4.3 (3.5-4.5) mEq/L Chloride 107 (98-109) mEq/L Carbon Dioxide 22 (19-29) mEq/L BUN 19 D (7-20) mg/dL Creatinine 0.73 (0.57-1.11) mg/dL Glucose 112 H (70-99) mg/dL Calcium 7.4 L (8.6-10.8) mg/dL Total Bilirubin 0.6 (0.2-1.2) mg/dL AST 11 (5-34) Units/L ALT 8 (0-55) Units/L Alkaline Phosphatase 71 (38-126) Units/L Albumin 1.3 L (3.5-5.0) g/dL - VTE Documentation of Mechanical Device: Intermittent pneumatic compression device Consult Discharge Plan - Plan Referrals: Aaron Levy, WELDING SYSTEMS AND EQUIPMENT REPAIRER [Primary Care Provider] -
--- NOTE | 2017-03-13 08:16 | Internal Med Progress Note ---
<Selvin Edwards - Last Filed: 03/13/17 10:36> Date of Encounter: 03/13/17 Time of Encounter: 08:16 - Assessment and plan (1) Perforation bowel Current Visit: Yes Status: Suspected Assessment and plan: Ct/abdomen pelvis shows containe bowel perforation in the sigmoid colon which is between bladder and uterus, without free air of fluid collection -tenderness to palpation in the RLQ and pain with percussion of LLQ, soft belly , no peritoneal signs, absent rigidity -denies pervious abdominal surgeries, denies colonoscopy in past -gastrograffin enema shows contained sigmoid colon perforation measuring 8.6x7.6cm. -Oh's procedure done, postop day 5, patient doing well postop, pt/ot on board and recommended rehab, added incentive spirometry - yesterday KUB showed ileus, surgery notified, back to clear liquid diet this AM, she is tolerating well. -continue zosyn for her pelvic abscess found during surgery, switch to PO abx when she can tolerate diet we need to check CBC today. (2) Leukocytosis Current Visit: Yes Status: Acute Assessment and plan: CT abdomen/pelvis shows possible contained perforation Urinalysis shows urine bacteria Urine culture negative Blood culture negative likley 2/2 sigmoid diverticular perforation which lead to pelvic abscess -continue zosyn for now -will check WBC, no fever, clinically improving. Qualifiers: Qualified Code(s): D72.829 - Elevated white blood cell count, unspecified (3) Atrial fibrillation with rapid ventricular response Current Visit: Yes Status: Resolved Assessment and plan: No hx of atrial fibrillation. echocardiogram pending. tsh WNL afib, rate controlled in 90s with PO beta-manasa will talk to pt for risk vs benefit of AC today continue telemetry (4) DVT prophylaxis Current Visit: Yes Status: Acute Assessment and plan: Heparin SQ TID. - Subjective Interval history: Patient seen and examined. Patient states that her abdominal soreness around the surgical site is better, pt tolerated clear diet fine this AM, no nausea/ emesis. - Constitutional Vitals: Temp Pulse Resp BP Pulse Ox 97.6 F 89 16 145/66 97 03/13/17 06:34 03/13/17 06:34 03/13/17 06:34 03/13/17 06:34 03/13/17 06:34 General appearance: Present: cooperative, A&O X 3, no acute distress, obese, answers questions appropriately - Respiratory Respiratory exam: Present: CTAB. Absent: accessory muscle use, chest wall tenderness, rales, rhonchi, wheezes - Cardiovascular Cardiovascular exam: Present: irregular rhythm, +S1, +S2. Absent: clicks, gallop, rubs, systolic murmur - GI/Abdominal GI/Abdominal exam: Present: soft, tenderness (slightly around surgical area). Absent: distended, firm, guarding, rebound, rigid Additional comments: dressing c/d/i, colostomy bag in place - Extremities Exam Extremities exam: Present: warm, radial pulses palpable and symetrical. Absent : calf tenderness, pedal edema, tenderness Internal Medicine: Result - Labs CBC & Chem 7: 03/12/17 17:13 03/12/17 20:10 Labs: Short CBC 03/12/17 Range/Units 17:13 WBC 14.4 H (4.3-11.1) K/mcL Hgb 8.8 L (11.5-15.4) g/dL Hct 26.9 L (35.3-44.9) % Plt Count 358 (140-400) K/mcL BMP 03/12/17 20:10 Sodium 133 L Potassium 4.3 Chloride 107 Carbon Dioxide 22 BUN 19 D Creatinine 0.73 Glucose 112 H Calcium 7.4 L Liver Function 03/12/17 Range/Units 20:10 Total Bilirubin 0.6 (0.2-1.2) mg/dL AST 11 (5-34) Units/L ALT 8 (0-55) Units/L Alkaline Phosphatase 71 (38-126) Units/L Albumin 1.3 L (3.5-5.0) g/dL - Impressions Impressions KUB X-Ray 03/12/17 16:38 IMPRESSION: 1. Gaseous distention of small and large bowel, likely related to an ileus following resection of presumed sigmoid colon secondary to bowel perforation. 2. There is still a small amount of contrast noted in the colon and rectal vault. D/ / 03/12/2017 18:25:27 Lito Farmer MD / rajeev Interpreting Provider: Lito Farmer MD - VTE Documentation of Mechanical Device: Intermittent pneumatic compression device Consult Discharge Plan - Plan Referrals: Aaron Levy, REGISTRATION SPECIALIST [Primary Care Provider] - <Cristo Null - Last Filed: 03/13/17 14:58> Date of Encounter: 03/13/17 - Assessment and plan (1) Ileus Current Visit: Yes Status: Acute (2) Atrial fibrillation Current Visit: Yes Status: Acute Qualifiers: Atrial fibrillation type: paroxysmal Qualified Code(s): I48.0 - Paroxysmal atrial fibrillation (3) Abscess of abdominal cavity Current Visit: Yes Status: Acute (4) Perforation bowel Current Visit: Yes Status: Suspected (5) Essential (primary) hypertension Current Visit: Yes Status: Chronic (6) Anemia Current Visit: Yes Status: Suspected Qualifiers: Anemia type: iron deficiency Qualified Code(s): D50.0 - Iron deficiency anemia secondary to blood loss (chronic) (7) Hyponatremia Current Visit: Yes Status: Acute (8) Leucocytosis Current Visit: Yes Status: Acute Qualifiers: Leukocytosis type: unspecified Qualified Code(s): D72.829 - Elevated white blood cell count, unspecified (9) 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 - Constitutional Vitals: Temp Pulse Resp BP Pulse Ox 98.2 F 89 16 143/74 98 03/13/17 10:56 03/13/17 10:56 03/13/17 10:56 03/13/17 10:56 03/13/17 10:56 Internal Medicine: Result - Labs CBC & Chem 7: 03/13/17 12:08 03/13/17 12:08 Labs: Short CBC 03/12/17 03/13/17 Range/Units 17:13 12:08 WBC 14.4 H 14.2 H (4.3-11.1) K/mcL Hgb 8.8 L 7.9 L (11.5-15.4) g/dL Hct 26.9 L 24.4 L (35.3-44.9) % Plt Count 358 321 (140-400) K/mcL Neutrophils # 9.6 H (1.6-8.9) K/mcL BMP 03/12/17 03/13/17 20:10 12:08 Sodium 133 L 132 L Potassium 4.3 3.7 Chloride 107 106 Carbon Dioxide 22 20 BUN 19 D 17 Creatinine 0.73 0.71 Glucose 112 H 125 H Calcium 7.4 L 7.4 L Liver Function 03/12/17 Range/Units 20:10 Total Bilirubin 0.6 (0.2-1.2) mg/dL AST 11 (5-34) Units/L ALT 8 (0-55) Units/L Alkaline Phosphatase 71 (38-126) Units/L Albumin 1.3 L (3.5-5.0) g/dL - Impressions Impressions KUB X-Ray 03/12/17 16:38 IMPRESSION: 1. Gaseous distention of small and large bowel, likely related to an ileus following resection of presumed sigmoid colon secondary to bowel perforation. 2. There is still a small amount of contrast noted in the colon and rectal vault. D/ / 03/12/2017 18:25:27 Lito Farmer MD / rajeev Interpreting Provider: Lito Farmer MD - Attending Attestation I examined this patient and my medical decision-making was reviewed with the Resident Physician on 03/13/17. I agree with the documented findings, disposition and treatment plan as described except to the extent set forth below. Ms. Beckwith is currently admitted for acute bowel perforation with abscess and new atrial fibrillation. She remains high risk due to development of abscess and need for continued medication adjustments. Ms. Beckwith is feeling a little better today. She is tolerating some clear liquids. No CP. No fever or chills. Nausea somewhat better. Heart rate better today and in sinus rhythm. Exam Alert. Comfortable Heart reg No wheeze Scant bowel sounds I/P 1. Ileus - Reglan. 2. Parox a fib - start anticoag Further diagnoses and plan as above.
[2017-03-13] MEDS: Metoprolol 100 MG TABLET PO SCH ×2 (10:19→20:03)
[2017-03-13] MEDS: Piperacillin/Tazobactam 3.375 GM in D5% in Water (Mini-Bag+) 100 ML IVPB SCH ×3 (10:20→23:29)
[2017-03-13] MEDS: predniSONE 10 MG TABLET PO SCH (10:20)
[2017-03-13 12:20] LABS: Basophils # 0.1 K/mcL (0.0-0.2); Basophils % 0.4 %; Eosinophils # 0.7 K/mcL (0.0-0.6); Hematocrit 24.4 % (35.3-44.9); Hemoglobin 7.9 g/dL (11.5-15.4); Immature Granulocytes % 1.3 % (0-4); Lymphocytes # 2.8 K/mcL (0.6-4.6); Lymphocytes % 19.7 %; Mean Corpuscular HGB Conc 32.4 g/dL (31.6-35.5); Mean Corpuscular Hemoglobin 24.8 pg (28.0-33.3); Mean Corpuscular Volume 76.5 fL (83.0-100.0); Mean Platelet Volume 8.9 fL (9.4-12.4); Monocytes # 0.9 K/mcL (0.0-1.3); Monocytes % 6.1 %; Neutrophils # 9.6 K/mcL (1.6-8.9); Platelet Count 321 K/mcL (140-400); Red Blood Count 3.19 M/mcL (3.82-4.97); Red Cell Distribution Width 19.3 % (11.5-14.5); Segmented Neutrophils % 67.5 %
[2017-03-13 12:32] LABS: BUN/Creatinine Ratio 24 (6-26); Blood Urea Nitrogen 17 mg/dL (7-20); Calcium 7.4 mg/dL (8.6-10.8); Carbon Dioxide 20 mEq/L (19-29); Chloride 106 mEq/L (98-109); Glucose 125 mg/dL (70-99); Osmolality,Calculated 277 (280-300); Sodium 132 mEq/L (136-145); eGFR For African Americans > 60 (> 60); eGFR For Non-African Americans > 60 (> 60)
[2017-03-13 12:33] LABS: Potassium 3.7 mEq/L (3.5-4.5)
[2017-03-13] MEDS: *HR* Enoxaparin 100 MG/ML SYRINGE SQ SCH (17:10)
[2017-03-14 03:27] LABS: Hematocrit 22.9 % (35.3-44.9); Hemoglobin 7.5 g/dL (11.5-15.4); Mean Corpuscular HGB Conc 32.8 g/dL (31.6-35.5); Mean Corpuscular Volume 76.3 fL (83.0-100.0); Mean Platelet Volume 9.4 fL (9.4-12.4); Platelet Count 288 K/mcL (140-400); Red Cell Distribution Width 19.2 % (11.5-14.5)
[2017-03-14 03:44] LABS: Alanine Aminotransferase 9 Units/L (0-55); Albumin/Globulin Ratio 0.3 (1.1-2.2); Alkaline Phosphatase 77 Units/L (38-126); Aspartate Amino Transferase 10 Units/L (5-34); BUN/Creatinine Ratio 18 (6-26); Bilirubin,Total 0.7 mg/dL (0.2-1.2); Blood Urea Nitrogen 12 mg/dL (7-20); Calcium 7.6 mg/dL (8.6-10.8); Carbon Dioxide 23 mEq/L (19-29); Chloride 108 mEq/L (98-109); Globulin 4.2 g/dL (2.4-3.5); Glucose 87 mg/dL (70-99); Magnesium 1.5 mg/dL (1.6-2.6); Osmolality,Calculated 279 (280-300); Potassium 4.2 mEq/L (3.5-4.5); Sodium 135 mEq/L (136-145); Total Protein 5.6 g/dL (6.0-8.3); eGFR For African Americans > 60 (> 60); eGFR For Non-African Americans > 60 (> 60)
[2017-03-14 03:47] LABS: Albumin 1.4 g/dL (3.5-5.0)
[2017-03-14] MEDS: *HR* Metoprolol 5 MG/5 ML VIAL IVP PRN (04:17)
[2017-03-14] MEDS: *HR* Enoxaparin 100 MG/ML SYRINGE SQ SCH ×2 (04:17→17:23)
[2017-03-14] MEDS: Metoclopramide 10 MG/2 ML VIAL IVP SCH ×3 (04:17→17:24)
[2017-03-14] MEDS ORDERED: Ipratropium/Albuterol Neb 3 ML IH PRN (04:46)
[2017-03-14] MEDS ORDERED: Furosemide 20 MG/2 ML VIAL IVP ONE (04:47)
--- NOTE | 2017-03-14 10:09 | General Surgery Progress Note ---
Date of Encounter: 03/14/17 Time of Encounter: 10:08 - Assessment and Plan (1) Perforation bowel Current Visit: Yes Status: Suspected s/p colectomy/colostomy. Tolerating by mouth diet. We will advance her diet to full liquids. Incision is clean dry and intact and we will sure the dressing changes have been started. No signs of drainage or infection. Otherwise continue with current management. Subjective Patient reports: other (The patient denies any nausea or vomiting. States she has had "a lot" of ostomy output and positive voiding secondary to lasix.) Objective Vital Signs - Last 8 Hours Temp Pulse Resp BP Pulse Ox 03/14/17 06:33 97.7 F 106 16 157/89 97 03/14/17 04:59 22 96 03/14/17 04:38 98.1 F 109 21 185/99 98 Intake and Output 03/13/17 03/14/17 03/14/17 23:59 07:59 15:59 Intake Total 100 / 100 0 / 0 Output Total 1600 / 1600 Balance 100 / 100 -1600 / -1600 Intake: IV Fluids 100 / 100 Zosyn 3.375 GM In 100 / 100 Dextrose 5% (Minibag+) 100 ML 100 ML @ 25 mls/hr IVPB Q8H [facility] Rx#: [id number] Oral 0 / 0 Output: Urine 1600 / 1600 Other: Meal Breakfast Percent of Meal Consumed 0% # Voids 1 1 Weight 90.7 kg Patient Weight 03/14/17 23:59 Weight 90.7 kg - General physical appearance well nourished, no distress - Abdomen Abdomen: Present: bowel sounds present, soft (tender to palpation. RLQ prior drain site with dressing-minimal drainage. Incision CDI. ) - Labs 03/14/17 03:00 03/14/17 03:00 Diabetes panel 03/13/17 03/14/17 Range/Units 12:08 03:00 Sodium 132 L 135 L (136-145) mEq/L Potassium 3.7 4.2 (3.5-4.5) mEq/L Chloride 106 108 (98-109) mEq/L Carbon Dioxide 20 23 (19-29) mEq/L BUN 17 12 (7-20) mg/dL Creatinine 0.71 0.66 (0.57-1.11) mg/dL Glucose 125 H 87 (70-99) mg/dL Calcium 7.4 L 7.6 L (8.6-10.8) mg/dL AST 10 (5-34) Units/L ALT 9 (0-55) Units/L Alkaline Phosphatase 77 (38-126) Units/L Albumin 1.4 L (3.5-5.0) g/dL Calcium panel 03/13/17 03/14/17 Range/Units 12:08 03:00 Calcium 7.4 L 7.6 L (8.6-10.8) mg/dL Albumin 1.4 L (3.5-5.0) g/dL Pituitary panel 03/13/17 03/14/17 Range/Units 12:08 03:00 Sodium 132 L 135 L (136-145) mEq/L Potassium 3.7 4.2 (3.5-4.5) mEq/L Chloride 106 108 (98-109) mEq/L Carbon Dioxide 20 23 (19-29) mEq/L BUN 17 12 (7-20) mg/dL Creatinine 0.71 0.66 (0.57-1.11) mg/dL Glucose 125 H 87 (70-99) mg/dL Calcium 7.4 L 7.6 L (8.6-10.8) mg/dL Adrenal panel 03/13/17 03/14/17 Range/Units 12:08 03:00 Sodium 132 L 135 L (136-145) mEq/L Potassium 3.7 4.2 (3.5-4.5) mEq/L Chloride 106 108 (98-109) mEq/L Carbon Dioxide 20 23 (19-29) mEq/L BUN 17 12 (7-20) mg/dL Creatinine 0.71 0.66 (0.57-1.11) mg/dL Glucose 125 H 87 (70-99) mg/dL Calcium 7.4 L 7.6 L (8.6-10.8) mg/dL Total Bilirubin 0.7 (0.2-1.2) mg/dL AST 10 (5-34) Units/L ALT 9 (0-55) Units/L Alkaline Phosphatase 77 (38-126) Units/L Albumin 1.4 L (3.5-5.0) g/dL - VTE Documentation of Mechanical Device: Intermittent pneumatic compression device Consult Discharge Plan - Plan Referrals: Aaron Levy, [facility] [Primary Care Provider] -
[2017-03-14] MEDS: Metoprolol 100 MG TABLET PO SCH ×2 (10:46→21:16)
[2017-03-14] MEDS: predniSONE 10 MG TABLET PO SCH (10:46)
[2017-03-14] MEDS: Piperacillin/Tazobactam 3.375 GM in D5% in Water (Mini-Bag+) 100 ML IVPB SCH ×2 (10:47→17:22)
[2017-03-14] MEDS ORDERED: Magnesium Sulfate 2 GM in D5% in Water 100 ML IVPB ONE (11:43)
--- NOTE | 2017-03-14 14:20 | Internal Med Progress Note ---
Date of Encounter: 03/14/17 Time of Encounter: 09:00 - Assessment and plan (1) Anemia Current Visit: Yes Status: Suspected Assessment and plan: Slightly lower today. No overt signs of new bleeding. Received fluids. Will recheck later today and if less than 8 will transfuse. Qualifiers: Anemia type: iron deficiency Qualified Code(s): D50.0 - Iron deficiency anemia secondary to blood loss (chronic) (2) Dyspnea Current Visit: Yes Status: Acute Assessment and plan: Acute dyspnea during the night. Fluids stopped and Lasix given. She seems to be doing better. Qualifiers: Dyspnea type: orthopnea Qualified Code(s): R06.01 - Orthopnea (3) Ileus Current Visit: Yes Status: Acute Assessment and plan: Appears to be slowly improving. Now on full liquid diet. Continue Reglan for now. (4) Atrial fibrillation Current Visit: Yes Status: Acute Assessment and plan: Now in sinus rhythm and rate controlled. Qualifiers: Atrial fibrillation type: paroxysmal Qualified Code(s): I48.0 - Paroxysmal atrial fibrillation (5) Abscess of abdominal cavity Current Visit: Yes Status: Acute Assessment and plan: Continue IV Zosyn for now. WBC is normalized. (6) Perforation bowel Current Visit: Yes Status: Resolved Assessment and plan: Progressing at this time. No new acute issues. (7) Essential (primary) hypertension Current Visit: Yes Status: Chronic Assessment and plan: Controlled at this time. (8) Hyponatremia Current Visit: Yes Status: Acute Assessment and plan: Following. (9) Leucocytosis Current Visit: Yes Status: Acute Assessment and plan: Improved today. Qualifiers: Leukocytosis type: unspecified Qualified Code(s): D72.829 - Elevated white blood cell count, unspecified (10) 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 - Subjective Interval history: Ms. Beckwith is currently admitted for acute bowel perforation and abdominal abscess. She is high risk due to development of ileus, rapid a fib, anemia and at risk for worsening clinical status. Ms. Beckwith was increased to full liquids today. So far she is doing OK. Has output from ostomy. No further rapid a fib in last 24 hours. No CP. Had dyspnea last night and fluids stopped. Lasix given. She has had a lot of output. - Constitutional Vitals: Temp Pulse Resp BP Pulse Ox 98.2 F 112 16 123/92 96 03/14/17 11:29 03/14/17 11:29 03/14/17 11:29 03/14/17 11:29 03/14/17 11:29 General appearance: Present: cooperative, A&O X 3, obese, answers questions appropriately - Head Head exam: Present: normocephalic - Eye Eye exam: Present: EOMI, conjuntiva pink - ENT ENT exam: Present: mucous membranes moist - Respiratory Respiratory exam: Present: decreased breath sounds, CTAB. Absent: rales, wheezes - Cardiovascular Cardiovascular exam: Present: RRR. Absent: tachycardia - GI/Abdominal GI/Abdominal exam: Present: soft, tenderness - Extremities Exam Extremities exam: Present: warm. Absent: pedal edema, tenderness - Neurological Exam Neurological exam: Present: alert, oriented X3 - Psychiatric Psychiatric exam: Present: normal affect, normal mood Internal Medicine: Result - Labs CBC & Chem 7: 03/14/17 03:00 03/14/17 03:00 Labs: Short CBC 03/14/17 Range/Units 03:00 WBC 10.9 (4.3-11.1) K/mcL Hgb 7.5 L (11.5-15.4) g/dL Hct 22.9 L (35.3-44.9) % Plt Count 288 (140-400) K/mcL BMP 03/14/17 03:00 Sodium 135 L Potassium 4.2 Chloride 108 Carbon Dioxide 23 BUN 12 Creatinine 0.66 Glucose 87 Calcium 7.6 L Liver Function 03/14/17 Range/Units 03:00 Total Bilirubin 0.7 (0.2-1.2) mg/dL AST 10 (5-34) Units/L ALT 9 (0-55) Units/L Alkaline Phosphatase 77 (38-126) Units/L Albumin 1.4 L (3.5-5.0) g/dL - Impressions Impressions Chest X-Ray 03/14/17 04:46 IMPRESSION: 1. Progressive patchy opacities bilaterally which may represent developing multifocal pneumonia. 2. No effusion or pneumothorax. D/ / 03/14/2017 07:41:41 Migue Maza MD / [facility] Interpreting Provider: Migue Maza MD - VTE Documentation of Mechanical Device: Intermittent pneumatic compression device Consult Discharge Plan - Plan Referrals: Aaron Levy, JYOTHI [Primary Care Provider] -
[2017-03-14 17:27] LABS: Hematocrit 23.9 % (35.3-44.9); Hemoglobin 7.7 g/dL (11.5-15.4)
[2017-03-15] MEDS: Metoclopramide 10 MG/2 ML VIAL IVP SCH ×4 (00:31→20:33)
[2017-03-15] MEDS: Piperacillin/Tazobactam 3.375 GM in D5% in Water (Mini-Bag+) 100 ML IVPB SCH ×3 (00:31→20:40)
[2017-03-15 04:26] LABS: Hematocrit 23.7 % (35.3-44.9); Hemoglobin 7.7 g/dL (11.5-15.4); Mean Corpuscular HGB Conc 32.5 g/dL (31.6-35.5); Mean Corpuscular Hemoglobin 25.1 pg (28.0-33.3); Mean Corpuscular Volume 77.2 fL (83.0-100.0); Mean Platelet Volume 9.4 fL (9.4-12.4); Platelet Count 341 K/mcL (140-400); Red Blood Count 3.07 M/mcL (3.82-4.97)
[2017-03-15 04:40] LABS: Alanine Aminotransferase 10 Units/L (0-55); Albumin 1.4 g/dL (3.5-5.0); Albumin/Globulin Ratio 0.3 (1.1-2.2); Alkaline Phosphatase 88 Units/L (38-126); Aspartate Amino Transferase 13 Units/L (5-34); BUN/Creatinine Ratio 14 (6-26); Bilirubin,Total 0.8 mg/dL (0.2-1.2); Blood Urea Nitrogen 9 mg/dL (7-20); Calcium 7.6 mg/dL (8.6-10.8); Carbon Dioxide 23 mEq/L (19-29); Chloride 104 mEq/L (98-109); Globulin 4.2 g/dL (2.4-3.5); Glucose 92 mg/dL (70-99); Magnesium 1.6 mg/dL (1.6-2.6); Osmolality,Calculated 274 (280-300); Potassium 3.5 mEq/L (3.5-4.5); Sodium 133 mEq/L (136-145); Total Protein 5.6 g/dL (6.0-8.3); eGFR For African Americans > 60 (> 60); eGFR For Non-African Americans > 60 (> 60)
[2017-03-15] MEDS: *HR* Enoxaparin 100 MG/ML SYRINGE SQ SCH ×2 (05:43→18:48)
[2017-03-15] MEDS: *HR* Metoprolol 5 MG/5 ML VIAL IVP PRN (07:02)
[2017-03-15] MEDS: predniSONE 10 MG TABLET PO SCH (07:36)
[2017-03-15] MEDS: Metoprolol 100 MG TABLET PO SCH (07:37)
--- NOTE | 2017-03-15 09:04 | General Surgery Progress Note ---
Date of Encounter: 03/15/17 Time of Encounter: 09:02 - Assessment and Plan (1) Perforation bowel Current Visit: Yes Status: Resolved s/p colectomy/colostomy. Tolerating full liquids. Will keep her on current diet and consider further advancement within the next 24hrs. Subjective Patient reports: no new complaints (Low appetitie but no nausea or vomiting. Slowly tolerating full liquids.) Objective Vital Signs - Last 8 Hours Temp Pulse Resp BP Pulse Ox 03/15/17 07:49 97 03/15/17 06:35 97.5 F L 99 16 141/92 97 03/15/17 03:32 97.5 F L 91 16 143/91 98 Intake and Output 03/14/17 03/15/17 03/15/17 23:59 07:59 15:59 Intake Total 100 / 100 100 / 100 Balance 100 / 100 100 / 100 Intake: IV Fluids 100 / 100 100 / 100 Zosyn 3.375 GM In 100 / 100 100 / 100 Dextrose 5% (Minibag+) 100 ML 100 ML @ 25 mls/hr IVPB Q8H [facility] Rx#: [id number] Oral 0 / 0 0 / 0 Other: # Voids 1 0 Weight 84.4 kg Patient Weight 03/15/17 23:59 Weight 84.4 kg - General physical appearance well nourished, no distress, other (Mild abdominal pain.) - Abdomen Abdomen: Present: bowel sounds present, soft, tender (Mild tenderness. Left sided ostomy functioning with stool present within appliance.) - Labs 03/15/17 04:15 03/15/17 04:15 Diabetes panel 03/15/17 Range/Units 04:15 Sodium 133 L (136-145) mEq/L Potassium 3.5 (3.5-4.5) mEq/L Chloride 104 (98-109) mEq/L Carbon Dioxide 23 (19-29) mEq/L BUN 9 (7-20) mg/dL Creatinine 0.64 (0.57-1.11) mg/dL Glucose 92 (70-99) mg/dL Calcium 7.6 L (8.6-10.8) mg/dL AST 13 (5-34) Units/L ALT 10 (0-55) Units/L Alkaline Phosphatase 88 (38-126) Units/L Albumin 1.4 L (3.5-5.0) g/dL Calcium panel 03/15/17 Range/Units 04:15 Calcium 7.6 L (8.6-10.8) mg/dL Albumin 1.4 L (3.5-5.0) g/dL Pituitary panel 03/15/17 Range/Units 04:15 Sodium 133 L (136-145) mEq/L Potassium 3.5 (3.5-4.5) mEq/L Chloride 104 (98-109) mEq/L Carbon Dioxide 23 (19-29) mEq/L BUN 9 (7-20) mg/dL Creatinine 0.64 (0.57-1.11) mg/dL Glucose 92 (70-99) mg/dL Calcium 7.6 L (8.6-10.8) mg/dL Adrenal panel 03/15/17 Range/Units 04:15 Sodium 133 L (136-145) mEq/L Potassium 3.5 (3.5-4.5) mEq/L Chloride 104 (98-109) mEq/L Carbon Dioxide 23 (19-29) mEq/L BUN 9 (7-20) mg/dL Creatinine 0.64 (0.57-1.11) mg/dL Glucose 92 (70-99) mg/dL Calcium 7.6 L (8.6-10.8) mg/dL Total Bilirubin 0.8 (0.2-1.2) mg/dL AST 13 (5-34) Units/L ALT 10 (0-55) Units/L Alkaline Phosphatase 88 (38-126) Units/L Albumin 1.4 L (3.5-5.0) g/dL - VTE Documentation of Mechanical Device: Intermittent pneumatic compression device Consult Discharge Plan - Plan Referrals: Aaron Levy, INFANT LEAD TEACHER [Primary Care Provider] -
--- NOTE | 2017-03-15 12:04 | Internal Med Progress Note ---
Date of Encounter: 03/15/17 Time of Encounter: 10:00 - Assessment and plan (1) Anemia Current Visit: Yes Status: Suspected Assessment and plan: Hemoglobin remains less than 8. Will transfuse a unit of PRBCs today. Recheck in morning. Qualifiers: Anemia type: iron deficiency Qualified Code(s): D50.0 - Iron deficiency anemia secondary to blood loss (chronic) (2) Dyspnea Current Visit: Yes Status: Acute Assessment and plan: Seems to be doing better after diuresis. Will give Lasix post blood. Qualifiers: Dyspnea type: orthopnea Qualified Code(s): R06.01 - Orthopnea (3) Ileus Current Visit: Yes Status: Acute Assessment and plan: Continuing on full liquid diet and Reglan. (4) Atrial fibrillation Current Visit: Yes Status: Acute Assessment and plan: Had another episode this AM with rates in 140s. Metoprolol increased to 150mg BID. Qualifiers: Atrial fibrillation type: paroxysmal Qualified Code(s): I48.0 - Paroxysmal atrial fibrillation (5) Abscess of abdominal cavity Current Visit: Yes Status: Acute Assessment and plan: Continue IV Zosyn for total of 7-10 days post op (based on WBC, etc) (6) Perforation bowel Current Visit: Yes Status: Resolved Assessment and plan: Progressing at this time. No new acute issues. (7) Essential (primary) hypertension Current Visit: Yes Status: Chronic Assessment and plan: Controlled at this time. (8) Hyponatremia Current Visit: Yes Status: Acute Assessment and plan: Following. Essentially no change. (9) Leucocytosis Current Visit: Yes Status: Acute Assessment and plan: Slightly higher today. Recheck tomorrow. Qualifiers: Leukocytosis type: unspecified Qualified Code(s): D72.829 - Elevated white blood cell count, unspecified (10) 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 - Subjective Interval history: Ms. Beckwith is currently admitted for acute bowel perforation and abdominal abscess. She is high risk due to development of ileus, rapid a fib, anemia and at risk for worsening clinical status. Ms. Beckwith had episode of rapid a fib this AM. Now sinus rhythm in 80-90 range. No CP but does get dyspneic when tachycardic. No fever. She has had a small amount of full liquids since yesterday. - Constitutional Vitals: Temp Pulse Resp BP Pulse Ox 97.9 F 102 16 140/87 99 03/15/17 11:04 03/15/17 11:04 03/15/17 11:04 03/15/17 11:04 03/15/17 11:04 General appearance: Present: cooperative, A&O X 3, answers questions appropriately - Head Head exam: Present: normocephalic - Eye Eye exam: Present: EOMI, conjuntiva pink - ENT ENT exam: Present: mucous membranes moist - Respiratory Respiratory exam: Present: decreased breath sounds, CTAB - Cardiovascular Cardiovascular exam: Present: irregular rhythm. Absent: tachycardia Additional comments: Currently NSR with PACs. - GI/Abdominal GI/Abdominal exam: Present: hypoactive bowel sounds, soft, tenderness - Extremities Exam Extremities exam: Present: warm. Absent: tenderness - Neurological Exam Neurological exam: Present: alert, oriented X3 - Psychiatric Psychiatric exam: Present: normal affect, normal mood Internal Medicine: Result - Labs CBC & Chem 7: 03/15/17 04:15 03/15/17 04:15 Labs: Short CBC 03/14/17 03/15/17 Range/Units 17:20 04:15 WBC 12.8 H (4.3-11.1) K/mcL Hgb 7.7 L 7.7 L (11.5-15.4) g/dL Hct 23.9 L 23.7 L (35.3-44.9) % Plt Count 341 (140-400) K/mcL BMP 03/15/17 04:15 Sodium 133 L Potassium 3.5 Chloride 104 Carbon Dioxide 23 BUN 9 Creatinine 0.64 Glucose 92 Calcium 7.6 L Liver Function 03/15/17 Range/Units 04:15 Total Bilirubin 0.8 (0.2-1.2) mg/dL AST 13 (5-34) Units/L ALT 10 (0-55) Units/L Alkaline Phosphatase 88 (38-126) Units/L Albumin 1.4 L (3.5-5.0) g/dL - Impressions Impressions Chest X-Ray 03/14/17 04:46 IMPRESSION: 1. Progressive patchy opacities bilaterally which may represent developing multifocal pneumonia. 2. No effusion or pneumothorax. D/ / 03/14/2017 07:41:41 Migue Maza MD / [facility] Interpreting Provider: Migue Maza MD - VTE Documentation of Mechanical Device: Intermittent pneumatic compression device Consult Discharge Plan - Plan Referrals: Aaron Levy, WAREHOUSE SHIPPING CLERK [Primary Care Provider] -
[2017-03-15] MEDS ORDERED: Acetaminophen 325 MG TABLET PO ONE (13:29)
[2017-03-15] MEDS ORDERED: Furosemide 20 MG/2 ML VIAL IVP ONE (13:29)
[2017-03-15] MEDS ORDERED: 0.9 % Sodium Chloride 250 ML IVC SCH (13:30)
[2017-03-15] MEDS ORDERED: 0.9 % Sodium Chloride 500 ML ONE (16:35)
[2017-03-16] MEDS: Metoclopramide 10 MG/2 ML VIAL IVP SCH ×5 (00:46→23:35)
[2017-03-16] MEDS: Piperacillin/Tazobactam 3.375 GM in D5% in Water (Mini-Bag+) 100 ML IVPB SCH (04:39)
[2017-03-16] MEDS: *HR* Metoprolol 5 MG/5 ML VIAL IVP PRN (04:52)
[2017-03-16] MEDS: *HR* Enoxaparin 100 MG/ML SYRINGE SQ SCH ×2 (05:18→17:04)
[2017-03-16 05:19] LABS: Hematocrit 28.7 % (35.3-44.9); Hemoglobin 9.2 g/dL (11.5-15.4); Mean Corpuscular HGB Conc 32.1 g/dL (31.6-35.5); Mean Corpuscular Hemoglobin 25.3 pg (28.0-33.3); Mean Corpuscular Volume 78.8 fL (83.0-100.0); Mean Platelet Volume 9.6 fL (9.4-12.4); Platelet Count 365 K/mcL (140-400); Red Blood Count 3.64 M/mcL (3.82-4.97); Red Cell Distribution Width 20.1 % (11.5-14.5)
[2017-03-16 05:33] LABS: BUN/Creatinine Ratio 15 (6-26); Blood Urea Nitrogen 10 mg/dL (7-20); Calcium 7.7 mg/dL (8.6-10.8); Carbon Dioxide 23 mEq/L (19-29); Chloride 102 mEq/L (98-109); Glucose 78 mg/dL (70-99); Osmolality,Calculated 270 (280-300); Potassium 3.3 mEq/L (3.5-4.5); Sodium 131 mEq/L (136-145); eGFR For African Americans > 60 (> 60); eGFR For Non-African Americans > 60 (> 60)
--- NOTE | 2017-03-16 08:19 | Internal Med Progress Note ---
<Selvin Edwards - Last Filed: 03/16/17 14:41> Date of Encounter: 03/16/17 Time of Encounter: 08:18 - Assessment and plan (1) Perforation bowel Current Visit: Yes Status: Resolved Assessment and plan: S/p ross procedure, surgery following, advance diet to soft diet, pt/ot, incentive spirometry, stop IV zosyn today for abscess. (2) Volume overload Current Visit: Yes Status: Acute Assessment and plan: chest x-ray today showed pulm edema, will resume blas and start her on IV laxix , strict I and O's and check daily weight. Qualifiers: Qualified Code(s): E87.79 - Other fluid overload (3) Leukocytosis Current Visit: Yes Status: Acute Assessment and plan: Improving, last day of IV zosyn for her abscess found during surgery. Qualifiers: Qualified Code(s): D72.829 - Elevated white blood cell count, unspecified (4) Atrial fibrillation with rapid ventricular response Current Visit: Yes Status: Resolved Assessment and plan: New onset, on/off PAF, echo reviewed, cardio consulted, on lovenox for AC, lopressor 150mg PO BID, con't diuresing with IV lasix. (5) DVT prophylaxis Current Visit: Yes Status: Acute Assessment and plan: Lovenox BID. - Subjective Interval history: Patient seen and examined. Pt had another a-fib episode last night, tolerating full liquid diet somewhat, no nausea/emesis this AM, having wheezing/SOB this AM. - Constitutional Vitals: Temp Pulse Resp BP Pulse Ox 97.7 F 81 16 141/68 99 03/16/17 06:21 03/16/17 06:21 03/16/17 06:21 03/16/17 06:21 03/16/17 06:21 General appearance: Present: cooperative, A&O X 3, no acute distress, obese, answers questions appropriately - Respiratory Respiratory exam: Present: rales (at base b/l). Absent: accessory muscle use, chest wall tenderness, rhonchi, wheezes - Cardiovascular Cardiovascular exam: Present: RRR, +S1, +S2. Absent: clicks, distant heart sounds, gallop, rubs, systolic murmur - GI/Abdominal GI/Abdominal exam: Present: soft, tenderness (around surgical site). Absent: distended, firm, guarding, rebound, rigid Additional comments: dressing c/d/i, colostomy bag in place - Extremities Exam Extremities exam: Present: pedal edema (1+ b/l), warm, radial pulses palpable and symetrical. Absent: calf tenderness Internal Medicine: Result - Labs CBC & Chem 7: 03/16/17 04:45 03/16/17 04:45 Labs: Short CBC 03/15/17 03/16/17 Range/Units 23:00 04:45 WBC 11.4 H (4.3-11.1) K/mcL Hgb 9.0 L 9.2 L (11.5-15.4) g/dL Hct 28.0 L 28.7 L (35.3-44.9) % Plt Count 365 (140-400) K/mcL BMP 03/16/17 04:45 Sodium 131 L Potassium 3.3 L Chloride 102 Carbon Dioxide 23 BUN 10 Creatinine 0.66 Glucose 78 Calcium 7.7 L - VTE Documentation of Mechanical Device: Intermittent pneumatic compression device Consult Discharge Plan - Plan Referrals: Aaron Levy, GIRL FRIDAY [Primary Care Provider] - <Cristo Null - Last Filed: 03/16/17 17:52> Date of Encounter: 03/16/17 - Assessment and plan (1) Pulmonary edema Current Visit: Yes Status: Acute Assessment and plan: Most likely related to rapid a fib. Blas replaced. IV Lasix ordered. Card eval due to a fib recurrence. Qualifiers: Chronicity: acute Qualified Code(s): J81.0 - Acute pulmonary edema (2) Atrial fibrillation Current Visit: Yes Status: Acute Assessment and plan: Persists with episodes of rapid a fib. Will ask card for input today. On PO Lopressor and Lovenox. Qualifiers: Atrial fibrillation type: paroxysmal Qualified Code(s): I48.0 - Paroxysmal atrial fibrillation (3) Anemia Current Visit: Yes Status: Suspected Assessment and plan: S/P transfusion yesterday. Follow H/H Qualifiers: Anemia type: iron deficiency Qualified Code(s): D50.9 - Iron deficiency anemia, unspecified (4) Ileus Current Visit: Yes Status: Acute Assessment and plan: Diet increased to soft. (5) Abscess of abdominal cavity Current Visit: Yes Status: Acute Assessment and plan: Abx stopped today. (6) Perforation bowel Current Visit: Yes Status: Resolved (7) Essential (primary) hypertension Current Visit: Yes Status: Chronic Assessment and plan: Following. (8) Hyponatremia Current Visit: Yes Status: Acute (9) Leucocytosis Current Visit: Yes Status: Acute Qualifiers: Leukocytosis type: unspecified Qualified Code(s): D72.829 - Elevated white blood cell count, unspecified (10) 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 - Constitutional Vitals: Temp Pulse Resp BP Pulse Ox 97.7 F 100 16 144/75 99 03/16/17 15:45 03/16/17 15:45 03/16/17 15:45 03/16/17 15:45 03/16/17 15:45 Internal Medicine: Result - Labs CBC & Chem 7: 03/16/17 04:45 03/16/17 04:45 Labs: Short CBC 03/15/17 03/16/17 Range/Units 23:00 04:45 WBC 11.4 H (4.3-11.1) K/mcL Hgb 9.0 L 9.2 L (11.5-15.4) g/dL Hct 28.0 L 28.7 L (35.3-44.9) % Plt Count 365 (140-400) K/mcL BMP 03/16/17 04:45 Sodium 131 L Potassium 3.3 L Chloride 102 Carbon Dioxide 23 BUN 10 Creatinine 0.66 Glucose 78 Calcium 7.7 L - Impressions Impressions Chest X-Ray 03/16/17 09:00 IMPRESSION: Worsening perihilar and multifocal airspace opacities from recent prior exam. There also appears to be a small left pleural effusion. Spectrum of findings may represent CHF and worsening pulmonary edema. Multifocal pneumonia may be considered clinically if there are symptoms of infection. D/ / Chaka Cagle MD / Chaka Cagle MD Interpreting Provider: Chaka Cagle MD - Attending Attestation I examined this patient and my medical decision-making was reviewed with the Resident Physician on 03/16/17. I agree with the documented findings, disposition and treatment plan as described except to the extent set forth below. Ms Beckwith is currently admitted for acute bowel perforation and abscess. She has developed ileus and has had issues with post op PAF. She remains high risk due to potential for worsening respiratory and cardiac status. Ms Beckwith again had rapid a fib during the night. She is having more dyspnea and wheezing this morning. Denies CP. No fever. No cough. Not eating a whole lot. Exam Alert. moderate distress due to dyspnea. Heart irreg and tachy around 100 and a fib Lungs with diffuse end exp wheeze and crackles Abd soft I/P 1. Acute resp distress/hypoxia due to pulmonary edema 2. PAF Further diagnoses and plan as above.
[2017-03-16] MEDS: predniSONE 10 MG TABLET PO SCH (08:32)
[2017-03-16] MEDS ORDERED: Furosemide 40 MG/4 ML VIAL IVP ONE (09:30)
--- NOTE | 2017-03-16 09:58 | Electrocardiograph Report ---
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
--- NOTE | 2017-03-16 10:19 | Electrocardiograph Report ---
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
--- NOTE | 2017-03-16 10:25 | Cardiology Consult Note ---
Date of Encounter: 03/16/17 Time of Encounter: 10:30 Assessment and Plan (1) Perforation bowel Current Visit: Yes Status: Resolved Per Cardiology: S/p post Oh's procedure, sigmoid resection, end colostomy, rectal pouch, and drainage of pelvic abcess on 03/08/[address] Thompson d/t colonic fistula pelvic abcess. Incision and ab appear stable. (2) Leukocytosis Current Visit: Yes Status: Acute Per Cardiology: Blood Cx x 2 negative. Urine Cx negative. Afebrile. CXR today shows: IMPRESSION: Worsening perihilar and multifocal airspace opacities from recent prior exam. There also appears to be a small left pleural effusion. Spectrum of findings may represent CHF and worsening pulmonary edema. Multifocal pneumonia may be considered clinically if there are symptoms of infection. On antibiotics and steroids per primary service. Qualifiers: Qualified Code(s): D72.829 - Elevated white blood cell count, unspecified (3) Volume overload Current Visit: Yes Status: Acute Per Cardiology: CXR with concerns for CHF. Conversational dyspnea noted, on NC O2-- does not require at home. According to medical records, patient net + [phone] during stay. Now started on Lasix 40mg IV daily and K replacement by primary service. Agree with diuresis, consider increasing to BID if warranted. Kidney fxn stable. EF preserved on echo 55-60%, indeterminate diastolic fxn d/t aflutter. Qualifiers: Qualified Code(s): E87.79 - Other fluid overload (4) Atrial fibrillation Current Visit: Yes Status: Acute Per Cardiology: Currently ST on tele with HR 100's, avg HR past 24 hrs 88. ECGs and strips reviewed and appears to have episodes of PAF and paroxysmal aflutter. No known Hx. Suspect in response to volume overload, anemia, recent bowel perforation with surgery. On Lopressor 150mg PO BID and PRN IV Lopressor 5mg-- received dose this am. SBP 140's -150's currently. Echo showed EF 55-60%, NSWMA, and no significant valvular dysfxn. Will discuss and review with Dr. Bowen. Anticipate HR will imrpove with diuresis. Can consider titrating BB or adding CCB if warranted. Qualifiers: Atrial fibrillation type: paroxysmal Qualified Code(s): I48.0 - Paroxysmal atrial fibrillation (5) Anemia Current Visit: Yes Status: Suspected Per Cardiology: Suspected underlying iron deficiency anemia baseline labs H&H 10.4/29.0, dropped to 7.5/22.9, appears to have received 1 unit PRBCs yesterday and now 9.2 /28.7. No active bleeding noted. [id number]= 4. On Lovenox currently-- will continue to monitor cautiously. If able to tolerate Lovenox, will need to consider long-term AC at time of DC-- patient interested in Coumadin vs Eliquis. Qualifiers: Anemia type: iron deficiency Qualified Code(s): D50.9 - Iron deficiency anemia, unspecified Discussion w patient/family: The assessment and plan as outlined above was discussed with the patient who expressed understanding and agreement. All questions were answered. Thank you for involving us in the care of your patient. Please call with any questions. History of Present Illness Consult date: 03/16/17 Requesting physician: Selvin Edwards Consult reason: Afib Chief complaint: Weakness, Chills History of present illness: Ms. Beckwith is a 89 year old female with a relevant past medical history of hypertension, recent iron deficiency anemia that past fall and started on iron, hx of R breast lumpectomy, and past hx of nicotine abuse (smoked 1ppd for 15 years, quit 1958). Denies any hx of afib, CAD, DM, CVA. On Lopressor 50mg every am and 100mg every pm at home for HTN. reports hse lives alone at home. Cardiology consult for atrial fibrillation. Patient reports prior to admission was experiencing generalized weakness and chills. She denied any chest pain, shortness of breath, or palpitations. Denied any edema. Does not utilize home oxygen. She denies any recent surgeries or trauma. During hospital stay she does report shortness of breath (on [place] O2) and occasional episodes of fluttering sensations in her chest. Denies any active bleeding or blood loss. Reports bilateral LE swelling. Denies any CP. Denies any current fever or chills. Denies cough. Past Med Surg Social Fam HX - Past Medical History Attestation: Yes The following information was validated with the patient. Source: patient, old records reviewed Medical history: hypertension, other (iron def anemia) Psychiatric history: no psych history - Social History Smoking Status: Never smoker Alcohol use: none Drug use: none Medications and Allergies Aspirin [Ecotrin] 325 mg PO DAILY 03/06/17 [History] Cholecalciferol (Vitamin D3) [Vitamin D] 1,000 unit PO DAILY 03/06/17 [History] Ferrous Sulfate [Iron] 325 mg PO DAILY 03/06/17 [History] Lansoprazole [Prevacid] 30 mg PO DAILY 03/06/17 [History] Metoprolol Succinate 150 mg PO DAILY 03/06/17 [History] Multivitamin [One Daily Essential] 1 tab PO DAILY 03/06/17 [History] Naproxen Sodium [Aleve] 440 mg PO BID PRN 03/06/17 [History] Olmesartan/Hydrochlorothiazide [Benicar Hct 40-25 mg Tablet] 1 tab PO DAILY 11/21 [History] Bergoo-3/Dha/Epa/Fish Oil [Fish Oil 1,000 mg Softgel] 1,000 mg PO DAILY 03/06/17 [History] PredniSONE [Liv] 10 mg PO BID 03/06/17 [History] Allergies No Known Allergies Allergy (Verified 03/05/17 17:16) All Systems Review: A 10-system review of systems was performed and is negative for pertinent findings except as documented above in the HPI. - Constitutional Constitutional: chills, weakness - Cardiovascular Cardiovascular: as per HPI, dyspnea at rest, leg edema, palpitations Physical Examination Selected Entries 03/16/17 04:58 03/16/17 06:21 Temperature 97.7 F Pulse Rate 81 Respiratory Rate 16 Blood Pressure 141/68 O2 Sat by Pulse Oximetry 99 Oxygen Flow Rate (LPM) 2 Oxygen Delivery Method Nasal Cannula General: Conversant HEENT: Atraumatic, Normocephaly, Mucus Membranes Moist Neck: No JVD, Normal carotid pulses Cardiac: Reg Rate and Rhythm, Normal S1 and S2, No Murmur Lungs: Other (conversational dyspnea noted) Neuro: Alert and responsive, No focal deficits noted Abdomen: Soft, Other (Abdominal incision with ab approximated with no drainage or erythema; rectal pouch with no blood noted) Skin: No rashes noted on visualized skin Musculoskeletal: No Chest Wall Tenderness Extremities: No Clubbing, No Cyanosis, Normal Pulses, Other (+1-2 pitting edema bilateral LE) Other: [place]inson draining clear yellow urine Results 03/16/17 04:45 03/16/17 04:45 Lab Results Laboratory Tests 03/06/17 03/06/17 03/14/17 00:01 03:40 03:00 WBC 20.8 H Hgb 10.3 L 7.5 L Hct 31.4 L 22.9 L Potassium Creatinine Est GFR (Non-Af Amer) Magnesium 1.2 L AST ALT Albumin 03/15/17 03/16/17 03/16/17 04:15 04:45 04:45 WBC 11.4 H Hgb 9.2 L Hct 28.7 L Potassium 3.3 L Creatinine 0.66 Est GFR (Non-Af Amer) > 60 Magnesium 1.6 AST 13 ALT 10 Albumin 1.4 L ITS Impressions Barium Enema 03/07/17 10:16 IMPRESSION: Contained sigmoid colon perforation measuring about 8.6 x 7.6 cm. No evidence of free spill of contrast into the peritoneal cavity. This is suspected to be diverticular in origin. Findings were discussed with Pushpa Hollingsworth at 12:49 pm on 03/07/2017. D/ / Anton Santiago MD / Anton Santiago MD Interpreting Provider: Anton Santiago MD X-Ray 03/12/17 16:38 IMPRESSION: 1. Gaseous distention of small and large bowel, likely related to an ileus following resection of presumed sigmoid colon secondary to bowel perforation. 2. There is still a small amount of contrast noted in the colon and rectal vault. D/ / 03/12/2017 18:25:27 Lito Farmer MD / [facility] Interpreting Provider: Lito Farmer MD Chest X-Ray 03/14/17 04:46 IMPRESSION: 1. Progressive patchy opacities bilaterally which may represent developing multifocal pneumonia. 2. No effusion or pneumothorax. D/ / 03/14/2017 07:41:41 Migue Maza MD / [facility] Interpreting Provider: Migue Maza MD Chest X-Ray 03/16/17 09:00 IMPRESSION: Worsening perihilar and multifocal airspace opacities from recent prior exam. There also appears to be a small left pleural effusion. Spectrum of findings may represent CHF and worsening pulmonary edema. Multifocal pneumonia may be considered clinically if there are symptoms of infection. D/ / Chaka Cagle MD / Chaka Cagle MD Interpreting Provider: Chaka Cagle MD Intake & Output 03/13/17 03/14/17 03/15/17 03/16/17 23:59 23:59 23:59 23:59 Intake Total 3160 / 3160 300 / 300 1160 / 1160 220 / 220 Output Total 150 / 150 2800 / 2800 150 / 150 Balance 3010 / 3010 -2500 / -2500 1160 / 1160 70 / 70 Weight 88.3 kg 90.7 kg 84.4 kg 83.9 kg Active Medications Albuterol/Ipratropium (Duoneb) 3 ml IH [id number] PRN; Protocol PRN Reason: Shortness Of Breath/Wheezing Stop: 09/13/17 04:47 Last Admin: 03/14/17 04:59 Dose: 3 ml Enoxaparin Sodium (Lovenox) 90 mg 1 mg/kg (90 mg) SQ Q12HR RUSSEL PRN Reason: Protocol Stop: 09/12/17 18:01 Last Admin: 03/16/17 05:18 Dose: 90 mg Piperacillin Sod/Tazobactam (Sod 3.375 gm/ Dextrose) 100 mls @ 25 mls/hr IVPB Q8H RUSSEL PRN Reason: Protocol Stop: 09/14/17 20:01 Last Admin: 03/16/17 04:39 Dose: 100 mls/hr Metoclopramide HCl (Reglan) 5 mg IVP Q6HR RUSSEL Stop: 09/11/17 18:01 Last Admin: 03/16/17 05:19 Dose: 5 mg Metoprolol Tartrate (Lopressor) 5 mg IVP Q6HR PRN PRN Reason: tachycardia Stop: 09/06/17 17:24 Last Admin: 03/16/17 04:52 Dose: 5 mg Metoprolol Tartrate (Lopressor) 150 mg PO BID RUSSEL Stop: 09/14/17 21:01 Last Admin: 03/16/17 05:17 Dose: 150 mg Morphine Sulfate (Morphine Sulfate) 1 mg IVP Q4HR PRN PRN Reason: Severe Pain Stop: 09/11/17 16:01 Last Admin: 03/12/17 16:47 Dose: 1 mg Naloxone HCl (Narcan) 0.4 mg IVP Q2MIN PRN PRN Reason: Opioid Reversal Stop: 09/04/17 23:01 Omeprazole (Prilosec) 20 mg PO DAILY@0730 RUSSEL PRN Reason: Protocol Stop: 09/11/17 07:31 Last Admin: 03/16/17 08:32 Dose: 20 mg Ondansetron HCl (Zofran) 4 mg IVP Q4H PRN; Protocol PRN Reason: Nausea Stop: 09/11/17 16:00 Last Admin: 03/12/17 16:47 Dose: 4 mg Oxycodone/Acetaminophen (Percocet 5/325) 1 each PO Q6HR PRN PRN Reason: Pain Stop: 09/09/17 15:57 Last Admin: 03/12/17 11:15 Dose: 1 each Prednisone (Prednisone) 10 mg PO DAILY RUSSEL Stop: 09/05/17 13:46 Last Admin: 03/16/17 08:32 Dose: 10 mg - Imaging and Cardiology Chest Xray: report reviewed Echo: report reviewed - EKG Interpretation EKG results cardiology: other (Currently ST 100's on tele, avg HR past 24 hrs 88 ) Consult Discharge Plan - Plan Referrals: Aaron Levy, CULLET CRUSHER [Primary Care Provider] -
[2017-03-16] MEDS ORDERED: *HR* Metoprolol 5 MG/5 ML VIAL IVP PRN (10:52)
--- NOTE | 2017-03-16 12:15 | General Surgery Progress Note ---
Date of Encounter: 03/16/17 Time of Encounter: 12:14 - Assessment and Plan (1) Perforation bowel Current Visit: Yes Status: Resolved s/p colectomy/colostomy. Will advance to soft food diet. Continue with supplements 3 times a day. Up and out of bed as tolerated. Continue PT and OT. Subjective Patient reports: other (Patient tolerating full liquids. No vomiting. Positive ostomy output.) Objective Vital Signs - Last 8 Hours Temp Pulse Resp BP Pulse Ox 03/16/17 11:16 98.1 F 100 16 140/88 97 03/16/17 06:21 97.7 F 81 16 141/68 99 Intake and Output 03/15/17 03/16/17 03/16/17 23:59 07:59 15:59 Intake Total 700 / 700 100 / 100 120 / 120 Output Total 150 / 150 Balance 700 / 700 -50 / -50 120 / 120 Intake: IV Fluids 100 / 100 Zosyn 3.375 GM In 100 / 100 Dextrose 5% (Minibag+) 100 ML 100 ML @ 25 mls/hr IVPB Q8H [facility] Rx#: [id number] Oral 0 / 0 0 / 0 120 / 120 Blood Product 700 / 700 Rbcs Leuko Poor As-1 700 / 700 Unit [id number] Output: Urine 150 / 150 Other: Meal Breakfast Percent of Meal Consumed 10% Stool Size Small # Voids 0 0 # Bowel Movements 1 Weight 83.9 kg Patient Weight 03/16/17 23:59 Weight 83.9 kg - General physical appearance well developed, well nourished, no distress - Abdomen Abdomen: Present: bowel sounds present, soft (Incision clean dry and intact. Mild marino-incisional pain noted. Ostomy pink and functioning.), non tender - Labs 03/16/17 04:45 03/16/17 04:45 Diabetes panel 03/16/17 Range/Units 04:45 Sodium 131 L (136-145) mEq/L Potassium 3.3 L (3.5-4.5) mEq/L Chloride 102 (98-109) mEq/L Carbon Dioxide 23 (19-29) mEq/L BUN 10 (7-20) mg/dL Creatinine 0.66 (0.57-1.11) mg/dL Glucose 78 (70-99) mg/dL Calcium 7.7 L (8.6-10.8) mg/dL Calcium panel 03/16/17 Range/Units 04:45 Calcium 7.7 L (8.6-10.8) mg/dL Pituitary panel 03/16/17 Range/Units 04:45 Sodium 131 L (136-145) mEq/L Potassium 3.3 L (3.5-4.5) mEq/L Chloride 102 (98-109) mEq/L Carbon Dioxide 23 (19-29) mEq/L BUN 10 (7-20) mg/dL Creatinine 0.66 (0.57-1.11) mg/dL Glucose 78 (70-99) mg/dL Calcium 7.7 L (8.6-10.8) mg/dL Adrenal panel 03/16/17 Range/Units 04:45 Sodium 131 L (136-145) mEq/L Potassium 3.3 L (3.5-4.5) mEq/L Chloride 102 (98-109) mEq/L Carbon Dioxide 23 (19-29) mEq/L BUN 10 (7-20) mg/dL Creatinine 0.66 (0.57-1.11) mg/dL Glucose 78 (70-99) mg/dL Calcium 7.7 L (8.6-10.8) mg/dL - VTE Documentation of Mechanical Device: Intermittent pneumatic compression device Consult Discharge Plan - Plan Referrals: Aaron Levy CNP [Primary Care Provider] -
--- NOTE | 2017-03-16 15:15 | Event Note ---
Date of Encounter: 03/16/17 Time of Encounter: 15:15 - Cardiology Event Note HR remains ST low 100's. Appears to be diuresing well. No CP.
[2017-03-17] MEDS: *HR* Enoxaparin 100 MG/ML SYRINGE SQ SCH (05:56)
[2017-03-17] MEDS: Metoclopramide 10 MG/2 ML VIAL IVP SCH (05:57)
[2017-03-17 06:16] LABS: Basophils # 0.1 K/mcL (0.0-0.2); Basophils % 0.6 %; Eosinophils # 0.6 K/mcL (0.0-0.6); Eosinophils % 5.6 %; Hematocrit 27.8 % (35.3-44.9); Hemoglobin 9.1 g/dL (11.5-15.4); Immature Granulocytes % 0.4 % (0-4); Lymphocytes % 39.5 %; Mean Corpuscular HGB Conc 32.7 g/dL (31.6-35.5); Mean Corpuscular Hemoglobin 26.3 pg (28.0-33.3); Mean Corpuscular Volume 80.3 fL (83.0-100.0); Monocytes # 0.8 K/mcL (0.0-1.3); Monocytes % 7.5 %; Platelet Count 340 K/mcL (140-400); Red Blood Count 3.46 M/mcL (3.82-4.97); Segmented Neutrophils % 46.4 %
[2017-03-17 06:27] LABS: Neutrophils # 4.7 K/mcL (1.6-8.9)
[2017-03-17 06:55] LABS: Platelet Estimate Normal (Normal); Reactive Lymphocytes Present (Not Present)
[2017-03-17 06:59] LABS: BUN/Creatinine Ratio 21 (6-26); Blood Urea Nitrogen 13 mg/dL (7-20); Calcium 7.8 mg/dL (8.6-10.8); Carbon Dioxide 22 mEq/L (19-29); Chloride 104 mEq/L (98-109); Glucose 83 mg/dL (70-99); Magnesium 1.4 mg/dL (1.6-2.6); Osmolality,Calculated 273 (280-300); Potassium 3.7 mEq/L (3.5-4.5); Sodium 132 mEq/L (136-145); eGFR For African Americans > 60 (> 60); eGFR For Non-African Americans > 60 (> 60)
--- NOTE | 2017-03-17 07:14 | Venous Imaging Report ---
UE Venous Duplex Patient Name:Doreen Beckwith Order Number:[id number] Procedure Date:03/16/2017 Date:1925ge:89 yrs Gender:Female Location:[facility] Room #: 2NE16 Facility Engineer:Lolita Blandon Referring MD:Cristo Null DO rn school:Aaron Levy, [employer] Reading MD:Dilan Reyes MD , FACS Primary Indications:Bilateral arm pain Secondary Indications: Risk Factors Yes/No Anticoagulants Yes Impressions: Bilateral upper extremity: normal deep exam. Upper extremity abnormal superficial exam: right Cephalic vein acute thrombosis. Upper extremity abnormal superficial exam: left Cephalic Upper Arm vein acute thrombosis. Recommendations: After imaging the patient returned to their room. Gave vascular preliminary results to Karen TOBAR [id number] on 03/16/2017 at 19:56. Test completed on 03/16/2017 at 7:27:00 pm. Critical findings reported to Karen TOBAR [id number] by phone at 7:56:00 pm on 03/16/2017 by Lolita Blandon. Findings Venous Duplex Results: Right: Venous imaging of the upper extremity reveals full patency and normal vessel compressibility of the right jugular, right subclavian, right axillary, right brachial, right basilic, right radial and right ulnar. Doppler signals in the evaluated veins were normal. The right antecubital cephalic demonstrates an incompressible vein. Flow was absent and it did not augment. Left: Venous imaging of the upper extremity reveals full patency and normal vessel compressibility of the left jugular, left subclavian, left axillary, left brachial, left basilic, left radial and left ulnar. Doppler signals in the evaluated veins were normal. The left cephalic upper arm demonstrates an incompressible vein. Flow was absent and it did not augment. Prior Study: No prior study available for comparison. Upper Extremity Venous Duplex Side Vein Compress Spontaneous Flow Augment Right Jugular Normal yes Phasic yes Right Subclavian Normal yes Phasic yes Right Axillary Normal yes Phasic yes Right Brachial Normal yes Phasic yes Right Cephalic None no Absent no Right Basilic Normal yes Phasic yes Right Radial Normal yes Phasic yes Right Ulnar Normal yes Phasic yes Left Jugular Normal yes Phasic yes Left Subclavian Normal yes Phasic yes Left Axillary Normal yes Phasic yes Left Brachial Normal yes Phasic yes Left Cephalic Upper Arm None no Absent no Left Basilic Normal yes Phasic yes Left Radial Normal yes Phasic yes Left Ulnar Normal yes Phasic yes Updated by Dilan Reyes MD, FACS on 03/17/2017 7:09:20 AM Dilan Reyes MD electronically signed on 03/17/2017 7:09:38 AM with status of Final
[2017-03-17] MEDS ORDERED: Magnesium Sulfate 4 GM in D5% in Water 100 ML IVPB ONE (08:03)
--- NOTE | 2017-03-17 08:12 | Cardiology Progress Note ---
Date of Encounter: 03/17/17 Time of Encounter: 08:10 Assessment and Plan (1) Perforation bowel Current Visit: Yes Status: Resolved Per Cardiology: S/p post Oh's procedure, sigmoid resection, end colostomy, rectal pouch, and drainage of pelvic abcess on 03/08/[address] Thompson d/t colonic fistula pelvic abcess. Incision and ab appear stable. (2) Leukocytosis Current Visit: Yes Status: Acute Per Cardiology: Blood Cx x 2 negative. Urine Cx negative. Afebrile. CXR today shows: IMPRESSION: Worsening perihilar and multifocal airspace opacities from recent prior exam. There also appears to be a small left pleural effusion. Spectrum of findings may represent CHF and worsening pulmonary edema. Multifocal pneumonia may be considered clinically if there are symptoms of infection. On antibiotics and steroids per primary service. Qualifiers: Qualified Code(s): D72.829 - Elevated white blood cell count, unspecified (3) Volume overload Current Visit: Yes Status: Acute Per Cardiology: CXR with concerns for CHF. Conversational dyspnea noted, on NC O2-- does not require at home. According to medical records, patient now net + [id number] during stay (now negative about 2.5 L past 24 hrs). On Lasix 40mg IV daily. Agree with diuresis, consider increasing to BID if warranted. Kidney fxn stable. EF preserved on echo 55-60%, indeterminate diastolic fxn d/t aflutter. Qualifiers: Qualified Code(s): E87.70 - Fluid overload, unspecified (4) Atrial fibrillation Current Visit: Yes Status: Acute Per Cardiology: Currently ST on tele with HR 120's, avg HR past 24 hrs 99. ECGs and strips reviewed and appears to have episodes of PAF and paroxysmal aflutter. No known Hx. Suspect in response to volume overload, anemia, recent bowel perforation with surgery. On Lopressor 150mg PO BID, will increase to 200mg PO BID. Has not received any more doses of IV Lopressor PRN, will DC. SBP 140's -150's currently. Echo showed EF 55-60%, NSWMA, and no significant valvular dysfxn. Anticipate HR will improve with diuresis. Qualifiers: Atrial fibrillation type: paroxysmal Qualified Code(s): I48.0 - Paroxysmal atrial fibrillation (5) Acute cephalic vein thrombosis Current Visit: Yes Status: Acute Per Cardiology: Noted to now have bilateral cephalic vein acute thrombosis (superficial). Will discuss with Dr. Cj Bowen and primary service-- remains tachy and requiring O2. Discussed with primary service and will check CT with contrast to r/o PE. Qualifiers: Laterality: bilateral Qualified Code(s): I82.613 - Acute embolism and thrombosis of superficial veins of upper extremity, bilateral (6) Anemia Current Visit: Yes Status: Suspected Per Cardiology: Suspected underlying iron deficiency anemia baseline labs H&H 10.4/29.0, dropped to 7.5/22.9, received 1 unit PRBCs and H&H currently appears stable. No active bleeding noted. [id number]= 4. On Lovenox currently-- will continue to monitor cautiously. If able to tolerate Lovenox, will need to consider long- term AC at time of DC-- patient interested in Coumadin vs Eliquis. Qualifiers: Anemia type: iron deficiency Qualified Code(s): D50.9 - Iron deficiency anemia, unspecified (7) Hypomagnesemia Current Visit: Yes Status: Acute Per Cardiology: Suspect d/t diuresis and altered nutrition. Will replace. Discussion w patient/family: The assessment and plan as outlined above was discussed with the patient who expressed understanding and agreement. All questions were answered. Thank you for involving us in the care of your patient. Please call with any questions. Subjective Principal diagnosis: ST, Afib Interval history: Patient denies any chest pain or palpitations. Reports continues to have mild shortness of breath at rest. Reports edema to lower extremities. Objective Vital Signs, Last 4 Hours Temp Pulse Resp BP Pulse Ox 03/17/17 06:43 98.0 F 106 16 142/78 98 General: Conversant, No Apparent Distress HEENT: Atraumatic, Normocephaly, Mucus Membranes Moist Cardiac: Reg Rate and Rhythm, Normal S1 and S2, No Murmur Lungs: Normal Breath Sounds, No Wheeze, Rales, Rhonchi Neuro: Alert and responsive, No focal deficits noted Abdomen: Soft, Non-Tender Skin: No rashes noted on visualized skin Musculoskeletal: No Chest Wall Tenderness Extremities: No Clubbing, No Cyanosis, Normal Pulses, Other (+1 pitting edema to bilateral LE) Results 03/17/17 06:04 03/17/17 06:38 Lab Results Laboratory Tests 03/17/17 03/17/17 06:04 06:38 Hgb 9.1 L Hct 27.8 L Creatinine 0.61 Est GFR (Non-Af Amer) > 60 Magnesium 1.4 L 03/17/17 06:38 Potassium 3.7 Impressions Chest X-Ray 03/16/17 09:00 IMPRESSION: Worsening perihilar and multifocal airspace opacities from recent prior exam. There also appears to be a small left pleural effusion. Spectrum of findings may represent CHF and worsening pulmonary edema. Multifocal pneumonia may be considered clinically if there are symptoms of infection. D/ / Chaka Cagle MD / Chaka Cagle MD Interpreting Provider: hCaka Cagle MD Intake & Output 03/14/17 03/15/17 03/16/17 03/17/17 23:59 23:59 23:59 23:59 Intake Total 300 / 300 1160 / 1160 700 / 700 0 / 0 Output Total 2800 / 2800 2625 / 2625 350 / 350 Balance -2500 / -2500 1160 / 1160 -1925 / -1925 -350 / -350 Weight 90.7 kg 84.4 kg 83.9 kg 83.2 kg Active Medications Albuterol/Ipratropium (Duoneb) 3 ml IH [id number] PRN; Protocol PRN Reason: Shortness Of Breath/Wheezing Stop: 09/13/17 04:47 Last Admin: 03/14/17 04:59 Dose: 3 ml Enoxaparin Sodium (Lovenox) 90 mg 1 mg/kg (90 mg) SQ Q12HR RUSSEL PRN Reason: Protocol Stop: 09/12/17 18:01 Last Admin: 03/17/17 05:56 Dose: 90 mg Furosemide (Lasix) 40 mg IVP DAILY [facility] Stop: 09/16/17 09:01 Magnesium Sulfate 4 gm/ (Dextrose) 108 mls @ 25 mls/hr IVPB ONCE ONE Stop: 03/17/17 12:22 Metoclopramide HCl (Reglan) 5 mg IVP Q6HR RUSSEL Stop: 09/11/17 18:01 Last Admin: 03/17/17 05:57 Dose: 5 mg Metoprolol Tartrate (Lopressor) 200 mg PO BID RUSSEL Stop: 09/14/17 21:01 Morphine Sulfate (Morphine Sulfate) 1 mg IVP Q4HR PRN PRN Reason: Severe Pain Stop: 09/11/17 16:01 Last Admin: 03/12/17 16:47 Dose: 1 mg Naloxone HCl (Narcan) 0.4 mg IVP Q2MIN PRN PRN Reason: Opioid Reversal Stop: 09/04/17 23:01 Omeprazole (Prilosec) 20 mg PO DAILY@0730 RUSSEL PRN Reason: Protocol Stop: 09/11/17 07:31 Last Admin: 03/16/17 08:32 Dose: 20 mg Ondansetron HCl (Zofran) 4 mg IVP Q4H PRN; Protocol PRN Reason: Nausea Stop: 09/11/17 16:00 Last Admin: 03/12/17 16:47 Dose: 4 mg Oxycodone/Acetaminophen (Percocet 5/325) 1 each PO Q6HR PRN PRN Reason: Pain Stop: 09/09/17 15:57 Last Admin: 03/12/17 11:15 Dose: 1 each Prednisone (Prednisone) 10 mg PO DAILY RUSSEL Stop: 09/05/17 13:46 Last Admin: 03/16/17 08:32 Dose: 10 mg - EKG Interpretation EKG results cardiology: other (Telemetry review with average heart rate the past 12 hours 99, currently sinus tach at 120 on telemetry) - VTE Documentation of Mechanical Device: Graduated compression elastic hosiery Consult Discharge Plan - Plan Referrals: Aaron Levy, DATA POWER CONSULTANT [Primary Care Provider] -
[2017-03-17] MEDS: predniSONE 10 MG TABLET PO SCH (08:22)
--- NOTE | 2017-03-17 08:49 | Internal Med Progress Note ---
<Selvin Edwards - Last Filed: 03/17/17 13:41> Date of Encounter: 03/17/17 Time of Encounter: 08:49 - Assessment and plan (1) Perforation bowel Current Visit: Yes Status: Resolved Assessment and plan: S/p ross procedure, surgery following, advance diet to soft diet yesterday, patient tolerating well without nausea and vomiting, pt/ot onboard and recommended an inpatient rehabilitation, incentive spirometry, she completed IV zosyn for abscess. (2) Volume overload Current Visit: Yes Status: Acute Assessment and plan: CTA of the chest was negative for pulmonary embolism but show moderate bilateral pleural effusions, right greater than left and patchy groundglass and reticular infiltrates which could be related to pulmonary edema, will resume blas and give her albumin 1 on continue IV Lasix, good urine output within the last 24 hours, continue strict I and O's and check daily weight. Qualifiers: Qualified Code(s): E87.70 - Fluid overload, unspecified (3) Leukocytosis Current Visit: Yes Status: Acute Assessment and plan: Resolved, patient completed course of IV zosyn for her abscess found during surgery. Qualifiers: Qualified Code(s): D72.829 - Elevated white blood cell count, unspecified (4) Atrial fibrillation with rapid ventricular response Current Visit: Yes Status: Resolved Assessment and plan: New onset, on/off PAF, echo reviewed, cardio consulted, on lovenox for AC, increased lopressor to 200 mg PO BID, con't diuresing with IV lasix, CTA of the chest was negative for pulmonary embolism. (5) Superficial venous thrombosis of both arms Current Visit: Yes Status: Acute (6) DVT prophylaxis Current Visit: Yes Status: Acute Assessment and plan: Lovenox BID. - Subjective Interval history: Patient seen and examined. Last night patient had tachycardia with heart rate between 90 to 110, patient states that her shortness of breath is better than yesterday, denies palpitation or chest pain, patient is able to tolerate soft diet without nausea and vomiting. - Constitutional Vitals: Temp Pulse Resp BP Pulse Ox 98.0 F 106 16 142/78 98 03/17/17 06:43 03/17/17 06:43 03/17/17 06:43 03/17/17 06:43 03/17/17 06:43 General appearance: Present: cooperative, A&O X 3, pleasant, no acute distress, obese, answers questions appropriately - Respiratory Respiratory exam: Present: rales (Mildly at base bilateral). Absent: rhonchi, wheezes - Cardiovascular Cardiovascular exam: Present: irregular rhythm, +S1, +S2. Absent: clicks, gallop, rubs, systolic murmur - GI/Abdominal GI/Abdominal exam: Present: soft, tenderness (To palpate around the surgical area). Absent: distended, firm, guarding, rebound, rigid Additional comments: Dressing clean, dry, intact, colostomy bag in place - Extremities Exam Extremities exam: Present: pedal edema (2+ pitting bilateral), warm, radial pulses palpable and symetrical. Absent: calf tenderness, tenderness Internal Medicine: Result - Labs CBC & Chem 7: 03/17/17 06:04 03/17/17 06:38 Labs: Short CBC 03/17/17 Range/Units 06:04 WBC 10.2 (4.3-11.1) K/mcL Hgb 9.1 L (11.5-15.4) g/dL Hct 27.8 L (35.3-44.9) % Plt Count 340 (140-400) K/mcL Neutrophils # 4.7 (1.6-8.9) K/mcL BMP 03/17/17 06:38 Sodium 132 L Potassium 3.7 Chloride 104 Carbon Dioxide 22 BUN 13 Creatinine 0.61 Glucose 83 Calcium 7.8 L - Impressions Impressions Chest X-Ray 03/16/17 09:00 IMPRESSION: Worsening perihilar and multifocal airspace opacities from recent prior exam. There also appears to be a small left pleural effusion. Spectrum of findings may represent CHF and worsening pulmonary edema. Multifocal pneumonia may be considered clinically if there are symptoms of infection. D/ / Chaka Cagle MD / Chaka Cagle MD Interpreting Provider: Chaka Cagle MD - VTE Documentation of Mechanical Device: Graduated compression elastic hosiery Consult Discharge Plan - Plan Referrals: Aaron Levy, FLOORING HELPER [Primary Care Provider] - <Cristo Null - Last Filed: 03/17/17 15:01> Date of Encounter: 03/17/17 - Assessment and plan (1) Pulmonary edema Current Visit: Yes Status: Acute Qualifiers: Chronicity: acute Qualified Code(s): J81.0 - Acute pulmonary edema (2) Acute hypoxemic respiratory failure Current Visit: Yes Status: Acute Assessment and plan: On supplemental oxgen (3) Atrial fibrillation Current Visit: Yes Status: Acute Assessment and plan: Beta manasa for rate control. Appreciate card input. Qualifiers: Atrial fibrillation type: paroxysmal Qualified Code(s): I48.0 - Paroxysmal atrial fibrillation (4) Anemia Current Visit: Yes Status: Suspected Assessment and plan: Stable post transfusion. Qualifiers: Anemia type: iron deficiency Qualified Code(s): D50.9 - Iron deficiency anemia, unspecified (5) Ileus Current Visit: Yes Status: Resolved (6) Abscess of abdominal cavity Current Visit: Yes Status: Acute Assessment and plan: Abx completed. (7) Perforation bowel Current Visit: Yes Status: Resolved (8) Essential (primary) hypertension Current Visit: Yes Status: Chronic (9) Hyponatremia Current Visit: Yes Status: Acute (10) Leucocytosis Current Visit: Yes Status: Acute Qualifiers: Leukocytosis type: unspecified Qualified Code(s): D72.829 - Elevated white blood cell count, unspecified (11) 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 - Constitutional Vitals: Temp Pulse Resp BP Pulse Ox 98.0 F 106 16 142/78 98 03/17/17 06:43 03/17/17 06:43 03/17/17 06:43 03/17/17 06:43 03/17/17 06:43 Internal Medicine: Result - Labs CBC & Chem 7: 03/17/17 06:04 03/17/17 06:38 Labs: Short CBC 03/17/17 Range/Units 06:04 WBC 10.2 (4.3-11.1) K/mcL Hgb 9.1 L (11.5-15.4) g/dL Hct 27.8 L (35.3-44.9) % Plt Count 340 (140-400) K/mcL Neutrophils # 4.7 (1.6-8.9) K/mcL BMP 03/17/17 06:38 Sodium 132 L Potassium 3.7 Chloride 104 Carbon Dioxide 22 BUN 13 Creatinine 0.61 Glucose 83 Calcium 7.8 L - Impressions Impressions Chest CTA 03/17/17 11:00 IMPRESSION: No pulmonary emboli are identified. Moderate bilateral pleural effusions, right greater than left. Patchy ground-glass and reticular infiltrates are also seen which could be related to multifocal pneumonia or possible pulmonary edema. Cardiomegaly, with reflux of contrast into the hepatic venous system could be related to a component of right-sided failure. Atherosclerotic disease with coronary involvement. D/ / Manny Bauer MD / Manny Bauer MD Interpreting Provider: Manny Bauer MD - Attending Attestation I examined this patient and my medical decision-making was reviewed with the Resident Physician on 03/17/17. I agree with the documented findings, disposition and treatment plan as described except to the extent set forth below. Ms. Beckwith is currently admitted for acute bowel perf and abscess complicated by ileus and parox a fib. She remains high risk due to potential for worsening cardiac issues. Ms. Beckwith is doing a little better today. She has a little more appetite. Still very volume overloaded. Still on oxygen. Still with intermittent tachycardia. Exam Alert. Comfortable at this time. Heart irreg but not tachy Lungs with scattered rales Edema present Labs reviewed CT shows pleural effusions I/P 1. Acute hypoxic resp failure due to pulmonary edema and effusions. 2. PAF 3. Volume overload Further diagnoses and plan as above.
[2017-03-17] MEDS ORDERED: Furosemide 40 MG/4 ML VIAL IVP SCH (09:00)
[2017-03-17] MEDS ORDERED: Albumin 25% 25gram/100mL 25 GM/100 ML IV.SOLN IVPB ONE (12:05)
[2017-03-17] MEDS ORDERED: Furosemide 40 MG/4 ML VIAL IVP ONE (12:06)
--- NOTE | 2017-03-17 13:57 | Event Note ---
Date of Encounter: 03/17/17 Time of Encounter: 14:00 - Cardiology Event Note CT scan noted to be negative for PE. Shows moderate bilateral pleural effusions right greater than left. Continue with IV diuresis.
--- NOTE | 2017-03-17 16:29 | General Surgery Progress Note ---
<Qian Carlson Felix - Last Filed: 03/17/17 16:30> Date of Encounter: 03/17/17 Time of Encounter: 16:15 - Assessment and Plan (1) Perforation bowel Current Visit: Yes Status: Resolved POD #9 Ho's procedure, sigmoid resection, end colostomy, and rectal pouch Drainage of pelvic abcess with Dr. Thompson Continue soft diet Supportive care/pain control PT/OT daily Ostomy care and teaching May discharge from a surgical standpoint when medically ready; f/u with Dr. Thompson 1-2 weeks. Subjective Patient reports: no new complaints, feels better, still having pain, pain is less, tolerating a regular diet (soft diet), flatus, bowel movement (via colostomy), afebrile Objective Vital Signs - Last 8 Hours Temp Pulse Resp BP Pulse Ox 03/17/17 15:58 98.9 F 87 16 145/70 99 Intake and Output 03/17/17 03/17/17 03/17/17 07:59 15:59 23:59 Intake Total 0 / 0 240 / 240 Output Total 350 / 350 3350 / 3350 Balance -350 / -350 -3110 / -3110 Intake: Oral 0 / 0 240 / 240 Output: Catheter 350 / 350 3350 / 3350 Other: Meal Lunch Percent of Meal Consumed 10% Weight 83.2 kg Patient Weight 03/17/17 23:59 Weight 83.2 kg - General physical appearance well developed, well nourished, no distress - Eyes normal ocular movement - ENT normal mucosa, atraumatic, normocephalic - Neck Neck exam: trachea midline - Respiratory normal respiratory effort, clear to auscultation - Cardiovascular Cardiovascular exam: Present: irregular rhythm - Abdomen Abdomen: Present: bowel sounds present, soft, tender (Expected postoperative tenderness), wound (Colostomy pink and moist with good function noted) - Incision Incision: Present: clean and dry, intact - Genitourinary other (Tomlinson catheter to straight drain) - Neurologic CN 2-12 grossly intact - Musculoskeletal other (Deconditioning noted) - Psychiatric oriented to time, oriented to person, oriented to place, speech is normal, memory intact - Labs 03/17/17 06:04 03/17/17 06:38 Diabetes panel 03/17/17 Range/Units 06:38 Sodium 132 L (136-145) mEq/L Potassium 3.7 (3.5-4.5) mEq/L Chloride 104 (98-109) mEq/L Carbon Dioxide 22 (19-29) mEq/L BUN 13 (7-20) mg/dL Creatinine 0.61 (0.57-1.11) mg/dL Glucose 83 (70-99) mg/dL Calcium 7.8 L (8.6-10.8) mg/dL Calcium panel 03/17/17 Range/Units 06:38 Calcium 7.8 L (8.6-10.8) mg/dL Pituitary panel 03/17/17 Range/Units 06:38 Sodium 132 L (136-145) mEq/L Potassium 3.7 (3.5-4.5) mEq/L Chloride 104 (98-109) mEq/L Carbon Dioxide 22 (19-29) mEq/L BUN 13 (7-20) mg/dL Creatinine 0.61 (0.57-1.11) mg/dL Glucose 83 (70-99) mg/dL Calcium 7.8 L (8.6-10.8) mg/dL Adrenal panel 03/17/17 Range/Units 06:38 Sodium 132 L (136-145) mEq/L Potassium 3.7 (3.5-4.5) mEq/L Chloride 104 (98-109) mEq/L Carbon Dioxide 22 (19-29) mEq/L BUN 13 (7-20) mg/dL Creatinine 0.61 (0.57-1.11) mg/dL Glucose 83 (70-99) mg/dL Calcium 7.8 L (8.6-10.8) mg/dL - VTE Documentation of Mechanical Device: Graduated compression elastic hosiery Consult Discharge Plan - Plan Additional Instructions: #1 may shower, no tub bath for 2 weeks #2 wash incisions with soap and water and pat dry daily #3 no lifting, pushing, pulling more than 15 pounds for the next 8 weeks #4 no driving until off narcotics for 24 hours and able to safely react in the car #5 may climb stairs #6 Ostomy care daily; change appliance every 5-7 days and as needed if leaking #7 PT/OT daily Referrals: Aaron Levy CNP [Primary Care Provider] - Qian Carlson CNP [Advanced Practice Nurse] - 03/23/17 9:15 am (Surgery follow-up; staple removal) Alonzo Thompson MD [Partnered Physician] - 03/31/17 10:10 am (surgery follow-up) <Uriel Rowland - Last Filed: 03/18/17 02:14> Date of Encounter: 03/18/17 - Assessment and Plan (1) Perforation bowel Current Visit: Yes Status: Resolved Objective Vital Signs - Last 8 Hours Temp Pulse Resp BP Pulse Ox 03/18/17 00:09 98.6 F 114 16 123/96 98 03/17/17 19:48 98.0 F 91 17 131/53 98 Intake and Output 03/17/17 03/17/17 03/18/17 15:59 23:59 07:59 Intake Total 240 / 240 Output Total 3350 / 3350 Balance -3110 / -3110 Intake: Oral 240 / 240 Output: Catheter 3350 / 3350 Other: Meal Lunch Percent of Meal Consumed 10% - Labs 03/17/17 06:04 03/17/17 06:38 Diabetes panel 03/17/17 Range/Units 06:38 Sodium 132 L (136-145) mEq/L Potassium 3.7 (3.5-4.5) mEq/L Chloride 104 (98-109) mEq/L Carbon Dioxide 22 (19-29) mEq/L BUN 13 (7-20) mg/dL Creatinine 0.61 (0.57-1.11) mg/dL Glucose 83 (70-99) mg/dL Calcium 7.8 L (8.6-10.8) mg/dL Calcium panel 03/17/17 Range/Units 06:38 Calcium 7.8 L (8.6-10.8) mg/dL Pituitary panel 03/17/17 Range/Units 06:38 Sodium 132 L (136-145) mEq/L Potassium 3.7 (3.5-4.5) mEq/L Chloride 104 (98-109) mEq/L Carbon Dioxide 22 (19-29) mEq/L BUN 13 (7-20) mg/dL Creatinine 0.61 (0.57-1.11) mg/dL Glucose 83 (70-99) mg/dL Calcium 7.8 L (8.6-10.8) mg/dL Adrenal panel 03/17/17 Range/Units 06:38 Sodium 132 L (136-145) mEq/L Potassium 3.7 (3.5-4.5) mEq/L Chloride 104 (98-109) mEq/L Carbon Dioxide 22 (19-29) mEq/L BUN 13 (7-20) mg/dL Creatinine 0.61 (0.57-1.11) mg/dL Glucose 83 (70-99) mg/dL Calcium 7.8 L (8.6-10.8) mg/dL - Attending Attestation I examined this patient and my medical decision-making was reviewed with the HOME HEALTH RN/PA/Advanced Practice Nurse/Resident Physician. I agree with the documented findings, disposition and treatment plan as described except to the extent set forth below. I personally reviewed the assessment and examination with the nurse practitioner present. I agree with the above plan.
[2017-03-17] MEDS: APIXABAN 5 MG TABLET PO SCH (22:18)
[2017-03-17] MEDS: Furosemide 40 MG/4 ML VIAL IVP SCH (22:18)
[2017-03-18 04:53] LABS: Hematocrit 28.3 % (35.3-44.9); Hemoglobin 9.2 g/dL (11.5-15.4); Mean Corpuscular HGB Conc 32.5 g/dL (31.6-35.5); Mean Corpuscular Hemoglobin 26.4 pg (28.0-33.3); Mean Corpuscular Volume 81.3 fL (83.0-100.0); Mean Platelet Volume 9.6 fL (9.4-12.4); Platelet Count 336 K/mcL (140-400); Red Blood Count 3.48 M/mcL (3.82-4.97); Red Cell Distribution Width 21.7 % (11.5-14.5)
[2017-03-18 05:02] LABS: BUN/Creatinine Ratio 16 (6-26); Blood Urea Nitrogen 11 mg/dL (7-20); Calcium 7.9 mg/dL (8.6-10.8); Carbon Dioxide 30 mEq/L (19-29); Chloride 98 mEq/L (98-109); Glucose 81 mg/dL (70-99); Magnesium 1.7 mg/dL (1.6-2.6); Osmolality,Calculated 276 (280-300); Potassium 3.4 mEq/L (3.5-4.5); Sodium 134 mEq/L (136-145); eGFR For African Americans > 60 (> 60); eGFR For Non-African Americans > 60 (> 60)
[2017-03-18 05:39] LABS: Eosinophils # 0.4 K/mcL (0.0-0.6); Lymphocytes # 4.9 K/mcL (0.6-4.6); Monocytes # 0.9 K/mcL (0.0-1.3); Neutrophils # 2.6 K/mcL (1.6-8.9); Platelet Estimate Normal (Normal); Reactive Lymphocytes Present (Not Present)
[2017-03-18] MEDS: Furosemide 40 MG/4 ML VIAL IVP SCH (08:32)
[2017-03-18] MEDS: predniSONE 10 MG TABLET PO SCH (08:33)
[2017-03-18] MEDS: APIXABAN 5 MG TABLET PO SCH ×2 (08:33→20:24)
--- NOTE | 2017-03-18 09:07 | Cardiology Progress Note ---
Date of Encounter: 03/18/17 Time of Encounter: 07:30 Assessment and Plan (1) Perforation bowel Current Visit: Yes Status: Resolved Per Cardiology: S/p post Oh's procedure, sigmoid resection, end colostomy, rectal pouch, and drainage of pelvic abcess on 03/08/[address] Thompson d/t colonic fistula pelvic abcess. Incision and ab appear stable. Reports plan for discharge to [facility] for rehabilitation. (2) Leukocytosis Current Visit: Yes Status: Acute Per Cardiology: Blood Cx x 2 negative. Urine Cx negative. Afebrile. CXR today shows: IMPRESSION: Worsening perihilar and multifocal airspace opacities from recent prior exam. There also appears to be a small left pleural effusion. Spectrum of findings may represent CHF and worsening pulmonary edema. Multifocal pneumonia may be considered clinically if there are symptoms of infection. On antibiotics and steroids per primary service. Qualifiers: Qualified Code(s): D72.829 - Elevated white blood cell count, unspecified (3) Volume overload Current Visit: Yes Status: Acute Per Cardiology: CXR with concerns for CHF. Conversational dyspnea noted, on NC O2-- does not require at home. According to medical records, patient now net - [id number] during stay (now negative about 6L past 48hrs). On Lasix 40mg IV BID. Kidney fxn stable. EF preserved on echo 55-60%, indeterminate diastolic fxn d/t aflutter. Recommend convert to PO prior to DC. Qualifiers: Qualified Code(s): E87.70 - Fluid overload, unspecified (4) Atrial fibrillation Current Visit: Yes Status: Acute Per Cardiology: Currently SR with avg HR 80 past 12 hrs. No significant events noted. ECGs and strips reviewed and appears to have episodes of PAF and paroxysmal aflutter. No known Hx. Suspect in response to volume overload, anemia, recent bowel perforation with surgery. On Lopressor 200mg PO BID. SBP 120's currently. Echo showed EF 55-60%, NSWMA, and no significant valvular dysfxn. Cardial she will sign off, follow-up scheduled, reconsult as needed. Discussed and reviewed with Dr. Cj Bowen. Discussed and reviewed with primary service. Qualifiers: Atrial fibrillation type: paroxysmal Qualified Code(s): I48.0 - Paroxysmal atrial fibrillation (5) Acute cephalic vein thrombosis Current Visit: Yes Status: Acute Per Cardiology: Noted to now have bilateral cephalic vein acute thrombosis (superficial). Will discuss with Dr. Cj Bowen and primary service-- remains tachy and requiring O2. CT - for PE. Qualifiers: Laterality: bilateral Qualified Code(s): I82.613 - Acute embolism and thrombosis of superficial veins of upper extremity, bilateral (6) Anemia Current Visit: Yes Status: Suspected Per Cardiology: Suspected underlying iron deficiency anemia baseline labs H&H 10.4/29.0, dropped to 7.5/22.9, received 1 unit PRBCs and H&H currently appears stable. No active bleeding noted. [id number]= 4, now on Eliquis 5mg PO BID. Qualifiers: Anemia type: iron deficiency Qualified Code(s): D50.9 - Iron deficiency anemia, unspecified (7) Hypomagnesemia Current Visit: Yes Status: Acute Per Cardiology: Improved. Discussion w patient/family: The assessment and plan as outlined above was discussed with the patient who expressed understanding and agreement. All questions were answered. Thank you for involving us in the care of your patient. Please call with any questions. Subjective Principal diagnosis: ST, Afib Interval history: Patient denies any chest pain or palpitations. Reports shortness of breath improved. Reports edema to lower extremities. Objective Vital Signs, Last 4 Hours Temp Pulse Resp BP Pulse Ox 03/18/17 06:36 97.4 F L 84 18 124/59 100 General: Conversant, No Apparent Distress HEENT: Atraumatic, Normocephaly, Mucus Membranes Moist Neck: No JVD, Normal carotid pulses Cardiac: Reg Rate and Rhythm, Normal S1 and S2, No Murmur Lungs: Normal Breath Sounds, No Wheeze, Rales, Rhonchi Neuro: Alert and responsive, No focal deficits noted Abdomen: Soft, Non-Tender Skin: No rashes noted on visualized skin Musculoskeletal: No Chest Wall Tenderness Extremities: No Clubbing, No Cyanosis, No Edema, Normal Pulses, Other (+1 bilateral LE edema) Results 03/18/17 04:13 03/18/17 04:13 Lab Results Laboratory Tests 03/18/17 04:13 Potassium 3.4 L Magnesium 1.7 Impressions Chest CTA 03/17/17 11:00 IMPRESSION: No pulmonary emboli are identified. Moderate bilateral pleural effusions, right greater than left. Patchy ground-glass and reticular infiltrates are also seen which could be related to multifocal pneumonia or possible pulmonary edema. Cardiomegaly, with reflux of contrast into the hepatic venous system could be related to a component of right-sided failure. Atherosclerotic disease with coronary involvement. D/ / Manny Bauer MD / Manny Bauer MD Interpreting Provider: Manny Bauer MD Active Medications Albuterol/Ipratropium (Duoneb) 3 ml IH [id number] PRN; Protocol PRN Reason: Shortness Of Breath/Wheezing Stop: 09/13/17 04:47 Last Admin: 03/14/17 04:59 Dose: 3 ml Apixaban (Eliquis) 5 mg PO BID RUSSEL Stop: 09/16/17 21:01 Last Admin: 03/18/17 08:33 Dose: 5 mg Furosemide (Lasix) 40 mg IVP BIDDIURETIC RUSSEL Stop: 09/16/17 21:01 Last Admin: 03/18/17 08:32 Dose: 40 mg Metoprolol Tartrate (Lopressor) 200 mg PO BID RUSSEL Stop: 09/14/17 21:01 Last Admin: 03/18/17 08:33 Dose: 200 mg Naloxone HCl (Narcan) 0.4 mg IVP Q2MIN PRN PRN Reason: Opioid Reversal Stop: 09/04/17 23:01 Omeprazole (Prilosec) 20 mg PO DAILY@0730 RUSSEL PRN Reason: Protocol Stop: 09/11/17 07:31 Last Admin: 03/18/17 08:33 Dose: 20 mg Ondansetron HCl (Zofran) 4 mg IVP Q4H PRN; Protocol PRN Reason: Nausea Stop: 09/11/17 16:00 Last Admin: 03/12/17 16:47 Dose: 4 mg Oxycodone/Acetaminophen (Percocet 5/325) 1 each PO Q6HR PRN PRN Reason: Pain Stop: 09/09/17 15:57 Last Admin: 03/12/17 11:15 Dose: 1 each Potassium Chloride (Potassium Chloride) 40 meq PO DAILY RUSSEL Stop: 09/17/17 09:01 Prednisone (Prednisone) 10 mg PO DAILY RUSSEL Stop: 09/05/17 13:46 Last Admin: 03/18/17 08:33 Dose: 10 mg - EKG Interpretation EKG results cardiology: other (Telemetry reviewed with average heart rate the past 12 hours 80, sinus rhythm, few episodes of atrial tachycardia noted) - VTE Documentation of Mechanical Device: Graduated compression elastic hosiery Consult Discharge Plan - Plan Additional Instructions: #1 may shower, no tub bath for 2 weeks #2 wash incisions with soap and water and pat dry daily #3 no lifting, pushing, pulling more than 15 pounds for the next 8 weeks #4 no driving until off narcotics for 24 hours and able to safely react in the car #5 may climb stairs #6 Ostomy care daily; change appliance every 5-7 days and as needed if leaking #7 PT/OT daily Referrals: Alonzo Thompson MD [Partnered Physician] - 03/31/17 10:10 am (surgery follow-up) Qian Carlson CNP [Advanced Practice Nurse] - 03/23/17 9:15 am (Surgery follow-up; staple removal) Aaron Levy CNP [Primary Care Provider] -
[2017-03-18] MEDS ORDERED: Albumin 25% 25gram/100mL 25 GM/100 ML IV.SOLN IVPB ONE (10:49)
--- NOTE | 2017-03-18 10:54 | Internal Med Progress Note ---
<Selvin Edwards - Last Filed: 03/18/17 10:58> Date of Encounter: 03/18/17 Time of Encounter: 10:54 - Assessment and plan (1) Perforation bowel Current Visit: Yes Status: Resolved Assessment and plan: S/p ross procedure, surgery signed off, tolerating diet well without nausea and vomiting, pt/ot onboard and recommended an inpatient rehabilitation, incentive spirometry, she completed IV zosyn for abscess. (2) Volume overload Current Visit: Yes Status: Acute Assessment and plan: CTA of the chest was negative for pulmonary embolism but show moderate bilateral pleural effusions, right greater than left and patchy groundglass and reticular infiltrates which could be related to pulmonary edema, diuresed well, will give her another albumin 1, swithc to PO Lasix, good urine output within the last 24 hours, continue strict I and O's and check daily weight. Qualifiers: Qualified Code(s): E87.70 - Fluid overload, unspecified (3) Leukocytosis Current Visit: Yes Status: Acute Assessment and plan: Resolved, patient completed course of IV zosyn for her abscess found during surgery. Qualifiers: Qualified Code(s): D72.829 - Elevated white blood cell count, unspecified (4) Atrial fibrillation with rapid ventricular response Current Visit: Yes Status: Resolved Assessment and plan: New onset, on/off PAF, echo reviewed, cardio consulted, on lovenox for AC, increased lopressor to 200 mg PO BID, con't diuresing with PO lasix, CTA of the chest was negative for pulmonary embolism, cardio signed off, f/u with cardio as outpt. (5) Superficial venous thrombosis of both arms Current Visit: Yes Status: Acute Assessment and plan: Arm pain resolved, con't eliquis. (6) DVT prophylaxis Current Visit: Yes Status: Acute Assessment and plan: Eliquis. - Subjective Interval history: Patient seen and examined. Pt tolerated diet well this AM, had bowel movement, no SOB or chest pain this AM, slight tachycardia last night, good urine output in last 24 hrs. - Constitutional Vitals: Temp Pulse Resp BP Pulse Ox 97.4 F L 84 18 124/59 100 03/18/17 06:36 03/18/17 06:36 03/18/17 06:36 03/18/17 06:36 03/18/17 06:36 General appearance: Present: cooperative, A&O X 3, pleasant, no acute distress, obese, answers questions appropriately - Respiratory Respiratory exam: Present: rales (at base b/l). Absent: accessory muscle use, chest wall tenderness, rhonchi, wheezes - Cardiovascular Cardiovascular exam: Present: irregular rhythm, +S1, +S2. Absent: clicks, gallop, rubs, systolic murmur - GI/Abdominal GI/Abdominal exam: Present: normal bowel sounds, soft. Absent: distended, firm , guarding, rebound, rigid, tenderness Additional comments: colostomy bag in place - Extremities Exam Extremities exam: Present: pedal edema (1+ nonpitting b/l), warm, radial pulses palpable and symetrical. Absent: calf tenderness Internal Medicine: Result - Labs CBC & Chem 7: 03/18/17 04:13 03/18/17 04:13 Labs: Short CBC 03/18/17 Range/Units 04:13 WBC 8.7 (4.3-11.1) K/mcL Hgb 9.2 L (11.5-15.4) g/dL Hct 28.3 L (35.3-44.9) % Plt Count 336 (140-400) K/mcL Neutrophils # 2.6 (1.6-8.9) K/mcL BMP 03/18/17 04:13 Sodium 134 L Potassium 3.4 L Chloride 98 Carbon Dioxide 30 H BUN 11 Creatinine 0.68 Glucose 81 Calcium 7.9 L - Impressions Impressions Chest CTA 03/17/17 11:00 IMPRESSION: No pulmonary emboli are identified. Moderate bilateral pleural effusions, right greater than left. Patchy ground-glass and reticular infiltrates are also seen which could be related to multifocal pneumonia or possible pulmonary edema. Cardiomegaly, with reflux of contrast into the hepatic venous system could be related to a component of right-sided failure. Atherosclerotic disease with coronary involvement. D/ / Manny Bauer MD / Manny Bauer MD Interpreting Provider: Manny Bauer MD - VTE Documentation of Mechanical Device: Graduated compression elastic hosiery Consult Discharge Plan - Plan Additional Instructions: #1 may shower, no tub bath for 2 weeks #2 wash incisions with soap and water and pat dry daily #3 no lifting, pushing, pulling more than 15 pounds for the next 8 weeks #4 no driving until off narcotics for 24 hours and able to safely react in the car #5 may climb stairs #6 Ostomy care daily; change appliance every 5-7 days and as needed if leaking #7 PT/OT daily Referrals: Alonzo Thompson MD [Partnered Physician] - 03/31/17 10:10 am (surgery follow-up) Qian Carlson CNP [Advanced Practice Nurse] - 03/23/17 9:15 am (Surgery follow-up; staple removal) Aaron Levy CNP [Primary Care Provider] - <Cristo Null - Last Filed: 03/18/17 13:19> Date of Encounter: 03/18/17 - Assessment and plan (1) Pulmonary edema Current Visit: Yes Status: Acute Assessment and plan: Improving with diuresis. Qualifiers: Chronicity: acute Qualified Code(s): J81.0 - Acute pulmonary edema (2) Acute hypoxemic respiratory failure Current Visit: Yes Status: Acute Assessment and plan: Improving with diuresis. (3) Atrial fibrillation Current Visit: Yes Status: Acute Assessment and plan: On Metoprolol for rate. Eliquis for anticoagulation. Qualifiers: Atrial fibrillation type: paroxysmal Qualified Code(s): I48.0 - Paroxysmal atrial fibrillation (4) Anemia Current Visit: Yes Status: Suspected Assessment and plan: H/H stable post transfusion. Qualifiers: Anemia type: iron deficiency Qualified Code(s): D50.9 - Iron deficiency anemia, unspecified (5) Ileus Current Visit: Yes Status: Resolved (6) Abscess of abdominal cavity Current Visit: Yes Status: Acute Assessment and plan: Abx completed. (7) Perforation bowel Current Visit: Yes Status: Resolved (8) Essential (primary) hypertension Current Visit: Yes Status: Chronic Assessment and plan: Controlled at this time. (9) Hyponatremia Current Visit: Yes Status: Acute (10) 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 (11) Leucocytosis Current Visit: Yes Status: Resolved Qualifiers: Leukocytosis type: unspecified Qualified Code(s): D72.829 - Elevated white blood cell count, unspecified - Constitutional Vitals: Temp Pulse Resp BP Pulse Ox 97.4 F L 84 18 124/59 100 03/18/17 06:36 03/18/17 06:36 03/18/17 06:36 03/18/17 06:36 03/18/17 06:36 Internal Medicine: Result - Labs CBC & Chem 7: 03/18/17 04:13 03/18/17 04:13 Labs: Short CBC 03/18/17 Range/Units 04:13 WBC 8.7 (4.3-11.1) K/mcL Hgb 9.2 L (11.5-15.4) g/dL Hct 28.3 L (35.3-44.9) % Plt Count 336 (140-400) K/mcL Neutrophils # 2.6 (1.6-8.9) K/mcL BMP 03/18/17 04:13 Sodium 134 L Potassium 3.4 L Chloride 98 Carbon Dioxide 30 H BUN 11 Creatinine 0.68 Glucose 81 Calcium 7.9 L - Attending Attestation I examined this patient and my medical decision-making was reviewed with the Resident Physician on 03/18/17. I agree with the documented findings, disposition and treatment plan as described except to the extent set forth below. Ms. Beckwith is currently admitted for acute bowel perforation with abscess complicated by ileus, PAF and pulmonary edema. She remains moderate to high risk due to potential for worsening respiratory and cardiac issues. Ms. Beckwith is up in her chair. She ate whole pancake today. She is less edematous in upper extremities but still has a lot of lower extremity edema. Breathing is doing better today. No pain. No fever. Exam Alert. Comfortable Heart reg now Lungs clear now Edema slowly improving. I/P 1. Pulmonary edema - repeat IV albumin/lasix today. Change to PO Lasix. Keep blas today. 2. PAF Further diagnoses and plan as above.
[2017-03-18] MEDS: Furosemide 40 MG TABLET PO SCH (16:41)
[2017-03-19 06:23] LABS: BUN/Creatinine Ratio 17 (6-26); Blood Urea Nitrogen 11 mg/dL (7-20); Calcium 8.2 mg/dL (8.6-10.8); Carbon Dioxide 27 mEq/L (19-29); Chloride 99 mEq/L (98-109); Glucose 75 mg/dL (70-99); Osmolality,Calculated 274 (280-300); Potassium 3.9 mEq/L (3.5-4.5); Sodium 133 mEq/L (136-145); eGFR For African Americans > 60 (> 60); eGFR For Non-African Americans > 60 (> 60)
[2017-03-19] MEDS: Furosemide 40 MG TABLET PO SCH (10:36)
[2017-03-19] MEDS: predniSONE 10 MG TABLET PO SCH (10:36)
[2017-03-19] MEDS: APIXABAN 5 MG TABLET PO SCH (10:36)
[2017-03-19 11:01] VITALS: BP 117/64
--- NOTE | 2017-03-19 13:35 | Discharge Summary ---
Date of Encounter: 03/19/17 Time of Encounter: 13:28 - Discharge Diagnosis (1) Perforation bowel Priority: Primary Status: Resolved (2) Volume overload Priority: Secondary Status: Acute Qualifiers: Qualified Code(s): E87.70 - Fluid overload, unspecified (3) Leukocytosis Priority: Secondary Status: Acute Qualifiers: Qualified Code(s): D72.829 - Elevated white blood cell count, unspecified (4) Atrial fibrillation with rapid ventricular response Priority: Primary Status: Resolved (5) Superficial venous thrombosis of both arms Priority: Secondary Status: Acute (6) DVT prophylaxis Priority: Secondary Status: Acute - Discharge Medications Prescriptions: OxyCODONE/APAP 5/325 [Percocet 5/325 MG] 1 each PO Q6HR PRN #30 tablet PRN Reason: Pain Apixaban [Eliquis] 5 mg PO BID #60 tablet Furosemide [Lasix] 40 mg PO DAILY #30 tablet Metoprolol [Lopressor] 200 mg PO BID #60 tablet Potassium Chloride 40 meq PO DAILY #10 tab.er.prt Home Medications: Cholecalciferol (Vitamin D3) [Vitamin D3] 1,000 unit PO DAILY 03/06/17 [History] Ferrous Sulfate [Iron] 325 mg PO DAILY 03/06/17 [History] Lansoprazole [Prevacid] 30 mg PO DAILY 03/06/17 [History] Multivitamin [One Daily Essential] 1 tab PO DAILY 03/06/17 [History] Emporium-3/Dha/Epa/Fish Oil [Fish Oil 1,000 mg Softgel] 1,000 mg PO DAILY 03/06/17 [History] PredniSONE [Liv] 10 mg PO BID 03/06/17 [History] Apixaban [Eliquis] 5 mg PO BID #60 tablet 03/19/17 [Rx] Furosemide [Lasix] 40 mg PO DAILY #30 tablet 03/19/17 [Rx] Metoprolol [Lopressor] 200 mg PO BID #60 tablet 03/19/17 [Rx] OxyCODONE/APAP 5/325 [Percocet 5/325 MG] 1 each PO Q6HR PRN #30 tablet 03/19/17 [Rx] Potassium Chloride 40 meq PO DAILY #10 tab.er.prt 03/19/17 [Rx] Allergies/Adverse Reactions: Allergies No Known Allergies Allergy (Verified 03/05/17 17:16) Procedures/tests Complete & Pending: Procedures Performed prior 72 hours Category Date Time Status CTA chest [CT angio chest] [CT] Routine Cat Scan 03/17/17 11:00 Completed Date of admission: 03/06/17 03:00 Primary care physician: Aaron Levy CNP Consults: 03/06/17 00:39 Consult to Surgery [CONS] Routine Consulting Provider: Surgery [facility] Reason for Consult: Suspected contained perforation Call Completed: No 03/06/17 13:13 Consult to Supervisor Stave Cutting [CONS] Routine Reason for SW Consult: Poss ECF at discharge 03/07/17 09:46 Consult to Physical Therapy [CONS] Routine Comment: Evaluate, develop and implement POC Reason for Consult: evaluation for rehabilitation OT [Consult to Occupational Therapy] [CONS] Routine Comment: Evaluate, develop and implement POC Reason for Consult: evaluaiton for rehabilitation 03/12/17 09:09 Consult to PICC team [Consult to Invasive Line Access Team] [CONS] Stat Reason for Consult: powerglide not drawing firm around site warm and tender to touch. no iv acess now and lab unable to draw from patient. thanks florentino Line Type: EPIV 03/16/17 08:15 Consult to Cardiology [CONS] Routine Comment: Consulting Provider: Bulmaro Tirado Reason for Consult: new onset a-fib, intermittent rvr for the last few days Call Completed: No 03/18/17 07:16 Consult to Wound Care [CONS] Routine Reason for Consult: ostomy care Call Completed: No Discharging clinician: Selvin Edwards Anticipated date of discharge: 03/19/17 - Patient Status Disposition: Transfer Inpatient Rehab Fac Condition: Fair Functional capacity at discharge: wheelchair bound (Up with assistance, fall precaution) Overall status at discharge: patient is progressing back to baseline - Discharge Instructions Follow Up With: Alonzo Thompson MD [Partnered Physician] - 03/31/17 10:10 am (surgery follow-up for her Oh procedure) Qian Carlson CNP [Advanced Practice Nurse] - 03/23/17 9:15 am (Surgery follow-up; staple removal) Aaron Levy CNP [Primary Care Provider] - (For hospital discharge follow- up within a week) Jesse Bardales CNP [Advanced Practice Nurse] - (Follow-up in a week for new onset atrial fibrillation) Additional Instructions: #1 may shower, no tub bath for 2 weeks #2 wash incisions with soap and water and pat dry daily #3 no lifting, pushing, pulling more than 15 pounds for the next 8 weeks #4 no driving until off narcotics for 24 hours and able to safely react in the car #5 may climb stairs #6 Ostomy care daily; change appliance every 5-7 days and as needed if leaking #7 PT/OT daily - Diet and Activity Activity: as per physical therapy Diet: low fat, low cholesterol, low salt diet (Cardiac) Hospital course: Ms. Beckwith is a 89 year old female with a history of chronic constipation who presented to ER with altered mental status, in the ER she was found to have a leukocytosis and lactic acidosis, CT scan of the abdomen showed bowel perforation and large amount of stool extending from the sigmoid colon between the uterus and the bladder, patient was transferred to [facility] for further surgical evaluation and management. Surgery was consulted and patient had a Oh's procedure done, patient was started on Zosyn IV for pelvic abscess that was found during the surgery, during this hospital stay patient also developed atrial fibrillation with rapid ventricular response, echo and TSH were reviewed, cardiology was consulted, patient was started on low Lopressor 150 mg by mouth twice a day, for long-term anticoagulation therapy patient was started on Eliquis, during this hospital stay patient developed dyspnea and a chest x-ray showed pulmonary edema along with worsening bilateral lower extremity edema therefore we started on IV Lasix and patient diuresed well , patient completed a course of IV antibiotic for pelvic abscess, PT/OT recommended patient to go to the rehabilitation after discharge, occasionally patient was having A. fib RVR therefore beta manasa dosage was increased to 200 mg by mouth twice a day, patient was able to tolerate soft diet, having bowel movement in colostomy bag, atrial fibrillation is under control via AV shahid blocking agent, therefore patient will be discharged to rehabilitation today in stable condition. - Time Spent with Patient Total time spent providing and/or coordinating discharge services: - Constitutional Vitals: Temp Pulse Resp BP Pulse Ox 97.4 F L 91 16 117/64 96 03/19/17 10:59 03/19/17 10:59 03/19/17 10:59 03/19/17 10:59 03/19/17 10:59 General appearance: Present: cooperative, A&O X 3, pleasant, no acute distress, obese, answers questions appropriately - Head Head exam: Present: atraumatic, normocephalic - Eye Eye exam: Present: PERRL, conjuntiva pink, sclera anicteric Pupils: Present: PERRL - Neck Neck exam general surgery: Present: supple, trachea midline. Absent: lymphadenopathy - Respiratory Respiratory exam: Present: CTAB. Absent: accessory muscle use, rales, rhonchi, wheezes - Cardiovascular Cardiovascular exam: Present: irregular rhythm, +S1, +S2. Absent: diastolic murmur, gallop, rubs, systolic murmur - GI/Abdominal GI/Abdominal exam: Present: normal bowel sounds, soft, tenderness (Around surgical area), no peritoneal signs. Absent: distended, firm, guarding, rebound , rigid Additional comments: Colostomy bag in place - Extremities Exam Extremities exam: Present: pedal edema (1+ pitting bilateral), warm, radial pulses palpable and symetrical. Absent: calf tenderness, cyanotic, tenderness - Neurological Exam Neurological exam: Present: CN II-XII intact, oriented X3, no focal deficits. Absent: pronater drift, facial droop, speech deficit - Skin Skin exam: Present: dry, intact - VTE Documentation of Mechanical Device: Graduated compression elastic hosiery
--- NOTE | 2017-03-19 14:07 | Physician Discharge Referral ---
<Selvin Edwards - Last Filed: 03/19/17 14:05> [facility] Referral Info Transfer To: Rehabilitation Provider in Charge: dr. lopez Provider in Charge after Transfer: PCP Institutional Level of Care: Skilled - Diagnosis (1) Perforation bowel Priority: Primary Status: Resolved (2) Volume overload Status: Acute (3) Leukocytosis Status: Acute (4) Atrial fibrillation with rapid ventricular response Status: Resolved (5) Superficial venous thrombosis of both arms Status: Acute (6) DVT prophylaxis Status: Acute - Transfer Medications Prescriptions: OxyCODONE/APAP 5/325 [Percocet 5/325 MG] 1 each PO Q6HR PRN #30 tablet PRN Reason: Pain Apixaban [Eliquis] 5 mg PO BID #60 tablet Furosemide [Lasix] 40 mg PO DAILY #30 tablet Metoprolol [Lopressor] 200 mg PO BID #60 tablet Potassium Chloride 40 meq PO DAILY #10 tab.er.prt Home Medications: Cholecalciferol (Vitamin D3) [Vitamin D3] 1,000 unit PO DAILY 03/06/17 [History] Ferrous Sulfate [Iron] 325 mg PO DAILY 03/06/17 [History] Lansoprazole [Prevacid] 30 mg PO DAILY 03/06/17 [History] Multivitamin [One Daily Essential] 1 tab PO DAILY 03/06/17 [History] [place]-3/Dha/Epa/Fish Oil [Fish Oil 1,000 mg Softgel] 1,000 mg PO DAILY 03/06/17 [History] PredniSONE [Liv] 10 mg PO BID 03/06/17 [History] Apixaban [Eliquis] 5 mg PO BID #60 tablet 03/19/17 [Rx] Furosemide [Lasix] 40 mg PO DAILY #30 tablet 03/19/17 [Rx] Metoprolol [Lopressor] 200 mg PO BID #60 tablet 03/19/17 [Rx] OxyCODONE/APAP 5/325 [Percocet 5/325 MG] 1 each PO Q6HR PRN #30 tablet 03/19/17 [Rx] Potassium Chloride 40 meq PO DAILY #10 tab.er.prt 03/19/17 [Rx] Allergies/Adverse Reactions: Allergies No Known Allergies Allergy (Verified 03/05/17 17:16) - Respiratory Orders Oxygen / L per min (2 L) Smoking Cessation: Smoking cessation has been advised. For more information, call the [place] Tobacco Quit Line at 1-562-UPZXNOW. - Ancillary Orders May use pressure relief devices daily prn, May go on ALOK w/family/respon democrat w /meds at nurse discretion PRN, May consult with Dentist, Escrow Manager, Filter Press Tender Head PRN - Advance Directives Code Status: Full Code - Rehabiliation Orders Rehab Potential: Fair Rehab Orders: ROM Exercises, Evaluation for Physical Therapy, Evaluation for Occupational Therapy - Treatments Skin tear care topically daily PRN per policy, May check for fecal impaction rectally daily PRN, Fleet enema rectally every other day PRN cleansing purposes - Diet Orders Cardiac (Advance diet chopped meat, and dietary supplement with magic cup, twice a day) CERTIFICATION: I certify that the transfer of the above named patient to an Extended Care Facility is necessary for the continuing treatment of the diagnosis listed. The above information is true and accurate reflection of patient's current condition. Confidential - Redisclosure prohibited without a patient's written consent. <Ramesh Lopez - Last Filed: 03/19/17 18:16> - Respiratory Orders Smoking Cessation: Smoking cessation has been advised. For more information, call the [place] Tobacco Quit Line at 6-846-ZFQJNOW. CERTIFICATION: I certify that the transfer of the above named patient to an Extended Care Facility is necessary for the continuing treatment of the diagnosis listed. The above information is true and accurate reflection of patient's current condition. Confidential - Redisclosure prohibited without a patient's written consent.
[2017-03-20] MEDS ORDERED: Furosemide 40 MG TABLET PO SCH (09:00)
== END 2017-03-19 15:56 | DRG 329 ==
LOC: 2NENU → SUATTDRO 03-06 03:00
PROVIDERS: ADMIT Internal Medicine; ATTEND Internal Medicine